=== PATIENT | female | born 1955 | race Caucasian/White ===

== ENCOUNTER → 2019-09-13 09:57 | Outpatient (CLI) | payer OTHER, SELFPAY ==
--- NOTE | ~2019-09-13 | MM_ITS ---
EXAMINATION: MM screening [facility] BI w ray HISTORY: Screening mammogram TECHNIQUE: Craniocaudal and mediolateral oblique 3-D tomosynthesis images were obtained and synthetic 2-D images were generated. CAD analysis was submitted and interpreted. COMPARISON: 04/06/2018, 09/14/2017, 09/03/1917, 05/21/2016 BREAST PARENCHYMAL COMPOSITION: There are scattered areas of fibroglandular density. FINDINGS: Scattered benign-appearing calcifications are present. There is no evidence of suspicious m ass, calcification, or architectural distortion to suggest malignancy in either breast. There has bee n no suspicious interval change. IMPRESSION: 1. No mammographic evidence of malignancy. 2. Recommend routine screening mammography in one year. BI-RADS Category 2: Benign finding(s). Reviewed, dictated and finalized at location A. K LEASING MANAGER
--- NOTE | ~2019-09-13 | DEXA_ITS ---
Bone Density Report Name: Sahara Goldstein Age: 63 Sex: Female Ethnicity: White Date of : 1955 Indication: postmenopausal; screening for osteoporosis; height loss; Referring Provider: Mercy Wright Study: Bone densitometry was performed. Exam Date: September 13, 2019 Accession number: [id number] Bone Density: Region BMD T-score Z-score Classification AP Spine (L1, L2, L4) 1.114 0.7 2.5 Normal Femoral Neck (Left) 0.831 -0.2 1.3 Normal Total Hip (Left) 1.109 1.4 2.6 Normal Femoral Neck (Right) 0.763 -0.8 0.7 Normal Total Hip (Right) 0.969 0.2 1.4 Normal Total Hip Mean 1.039 0.8 2.0 Normal World Health Organization criteria for BMD impression classify patients as: Normal (T-score at or above -1.0), Osteopenia (T-score between -1.0 and -2.5), or Osteoporosis (T-score at or below -2.5). 10-year Fracture Risk: FRAX not reported because: All T-scores for Spine Total, Hip Total, Femoral Neck at or above -1.0 Previous Exams: Region Exam Age BMD T-score BMD Change BMD Change Date g/cm2 vs Baseline vs Previous AP Spine(L1, L2, L4) 09/13/2019 63 1.114 0.7 0.073* 0.071* 09/12/2017 61 1.043 0.1 0.002 0.080* 03/03/2015 59 0.962 -0.7 -0.078* -0.051* 12/29/2012 57 1.013 -0.2 -0.028* -0.028* 10/09/2010 55 1.041 0.1 Total Hip(Left) 09/13/2019 63 1.109 1.4 0.063* 0.081* 09/12/2017 61 1.028 0.7 -0.018 0.011 03/03/2015 59 1.017 0.6 -0.029* -0.061* 12/29/2012 57 1.078 1.1 0.032* 0.032* 10/09/2010 55 1.046 0.9 Total Hip(Right) 09/13/2019 63 0.969 0.2 -0.028* 0.047* 09/12/2017 61 0.921 -0.2 -0.076* -0.028* 03/03/2015 59 0.949 0.1 -0.048* -0.026 12/29/2012 57 0.975 0.3 -0.022 -0.022 10/09/2010 55 0.997 0.4 *Denotes significance at 95% confidence level, LSC for AP Spine = 0.022 g/cm2, LSC for Total Hip = 0.027 g/cm2 Clinical Information Provided by Patient: Patient maximum height was 66.0 Menopause Age: 45 No regular weight bearing exercise Drinks caffeinated beverages Onset of menses at age 12 Number of children 2 Impression: The patient has normal bone mass. No significant bone loss was observed. Discussion: BONE DENSITY IS ABOVE THE MINIMUM DESIRABLE LEVEL
== END ==
PROVIDERS: PCP Family Medicine; Visit Provider Student in an Organized Health Care Education/Training Program
DX: Z12.31 Encounter for screening mammogram for malignant neoplasm of breast (principal); Z78.0 Asymptomatic menopausal state
CPT/HCPCS: 77063; 77067; 77080

== ENCOUNTER → 2020-08-19 08:42 | Outpatient (CLI) | payer MEDICARE, OTHER, SELFPAY ==
--- NOTE | ~2020-08-19 | MMUS_ITS ---
EXAMINATION: MM diagnostic dannie LT w ray, US breast LT limited HISTORY: Palpable lump of the lower-outer breast TECHNIQUE: Craniocaudal, mediolateral, and mediolateral oblique 3-D tomosynthesis images of the left breast were performed and synthetic 2-D images were generated. CAD analysis was submitted and interpr eted. High resolution limited left breast ultrasound was performed. COMPARISON: 09/13/2019, 09/03/1917, 05/21/2016 BREAST PARENCHYMAL COMPOSITION: There are scattered areas of fibroglandular density. FINDINGS: MAMMOGRAPHIC FINDINGS: There is no evidence of suspicious mass, calcification, or architectural distortion to suggest malig alondra. There has been no suspicious interval change. No mammographic correlate is identified for the reported palpable abnormality of concern. ULTRASOUND: There is no evidence of focal abnormal solid or cystic lesion in the vicinity of the reported palpabl e abnormality of the left breast. IMPRESSION: 1. No specific mammographic or sonographic correlate is identified for the reported palpable abnormal ity of concern in the left breast. Further evaluation at this time should be based on clinical assess ment. Continued follow-up physical examination is recommended. 2. Recommend routine screening mammography in one year for the left breast. Of note, patient is due f or right breast screening at the end of this month. BI-RADS Category 1: Negative Reviewed, dictated and finalized at location A. GER HAIR IMPRESSION: 1. No specific mammographic or sonographic correlate is identified for the repo rted palpable abnormality of concern in the left breast. Further evaluation at this time should be based on clinical assessment. Continued follow-up physical examination is recommended. 2. Recommend routine screening mammography in one year for the left breast. Of note, patient is due for right breast screening at the end of this month. BI-RADS Category 1: Negative
== END ==
PROVIDERS: PCP Physician Assistant; Visit Provider Student in an Organized Health Care Education/Training Program
DX: N63.25 Unspecified lump in the left breast, overlapping quadrants (principal); R92.8 Other abnormal and inconclusive findings on diagnostic imaging of breast
CPT/HCPCS: 76642; 77061; 77065; G0279

== ENCOUNTER → 2020-10-21 06:58 | Outpatient (CLI) | payer MEDICARE, OTHER, SELFPAY ==
[2020-10-21 22:47] LABS: SARS-CoV-2 RNA PCR Negative
== END ==
PROVIDERS: PCP Physician Assistant; Visit Provider Physician Assistant
DX: R68.89 Other general symptoms and signs (principal); Z20.822 Contact with and (suspected) exposure to COVID-19
CPT/HCPCS: C9803; U0003; U0005

== ENCOUNTER 2021-03-27 10:44 | Outpatient (CLI) | payer MEDICARE, OTHER, SELFPAY | END 2021-03-27 10:45 | disposition home or self-care (01) | LOC: ANHBWCAUD 10:45 | PROVIDERS: PCP Family Medicine; Visit Provider Otolaryngology | DX: H93.8X2 Other specified disorders of left ear (principal); H93.A2 Pulsatile tinnitus, left ear; H93.239 Hyperacusis, unspecified ear | CPT/HCPCS: 92557; 92567 ==

== ENCOUNTER 2021-04-13 07:26 | Outpatient (CLI) | payer MEDICARE, OTHER, SELFPAY ==
--- NOTE | ~2021-04-13 | MR_ITS ---
EXAMINATION: MR brain/brain stem wo/w con DATE: 04/13/2021 08:58 INDICATION: Pulsatile tinnitus, left ear. TECHNIQUE: Magnetic resonance imaging (MRI) of the brain and brainstem was performed without and with 15 mL MultiHance intravenous contrast. Sequences included sagittal and axial T1-weighted FSE, axial diffusion-weighted FS EPI, axial T2*-weighted GRE, axial T2-weighted FLAIR Propeller, axial T2-weight ed Propeller, small btfvt-si-mrdw coronal FIESTA, small eywjl-tq-zkgv coronal T1-weighted FSE, and sm all qpfla-xx-drdd axial T1-weighted SPGR. Postcontrast sequences included axial T1-weighted FSE, smal l avgep-td-dlxs coronal T1-weighted FSE, and small ywdaa-ta-ruzs axial T1-weighted SPGR. Apparent dif fusion coefficient (ADC) maps were created. COMPARISON: None. FINDINGS: There are scattered areas of nonspecific increased T2-weighted signal intensity in the cere bral white matter, which is within normal limits for the patient's age. There is no intracranial hemo rrhage, acute infarction, or abnormal intracranial mass lesion. The ventricles are normal in size. Th e orbits are normal. The paranasal sinuses are clear. The internal auditory canals and inner and midd le ears are normal. The mastoid air cells are normal. IMPRESSION: 1. Normal aging brain. Reviewed, dictated and finalized at location A. IMPRESSION: 1. Normal aging brain.
[2021-04-13 08:20] LABS: Estimated Glomerular Filt Rate 50
== END 2021-04-13 07:27 | disposition home or self-care (01) ==
PROVIDERS: PCP Family Medicine; Visit Provider Otolaryngology
DX: H93.A2 Pulsatile tinnitus, left ear (principal); K14.8 Other diseases of tongue; Q38.3 Other congenital malformations of tongue
CPT/HCPCS: 70553; A9577

== ENCOUNTER → 2021-10-28 10:15 | Outpatient (CLI) | payer MEDICARE, OTHER, SELFPAY ==
--- NOTE | ~2021-10-28 | DEXA_ITS ---
Bone Density Report Name: HALEY SHEPPARD Age: 66 Sex: Female Ethnicity: White Date of : 1955 Indication: postmenopausal; screening for osteoporosis; height loss; Referring Provider: Mercy Wright Study: Bone densitometry was performed. Exam Date: October 28, 2021 Accession number: [id number] Bone Density: Region BMD T-score Z-score Classification AP Spine (L1, L2, L4) 1.122 0.8 2.7 Normal Femoral Neck (Left) 0.809 -0.4 1.3 Normal Total Hip (Left) 1.099 1.3 2.6 Normal Femoral Neck (Right) 0.758 -0.8 0.8 Normal Total Hip (Right) 0.926 -0.1 1.2 Normal Total Hip Mean 1.013 0.6 1.9 Normal World Health Organization criteria for BMD impression classify patients as: Normal (T-score at or above -1.0), Osteopenia (T-score between -1.0 and -2.5), or Osteoporosis (T-score at or below -2.5). 10-year Fracture Risk: FRAX not reported because: All T-scores for Spine Total, Hip Total, Femoral Neck at or above -1.0 Previous Exams: Region Exam Age BMD T-score BMD Change BMD Change Date g/cm2 vs Baseline vs Previous AP Spine(L1, L2, L4) 10/28/2021 66 1.122 0.8 0.082* 0.008 09/13/2019 63 1.114 0.7 0.073* 0.071* 09/12/2017 61 1.043 0.1 0.002 0.080* 03/03/2015 59 0.962 -0.7 -0.078* -0.051* 12/29/2012 57 1.013 -0.2 -0.028* -0.028* 10/09/2010 55 1.041 0.1 Total Hip(Left) 10/28/2021 66 1.099 1.3 0.053* -0.010 09/13/2019 63 1.109 1.4 0.063* 0.081* 09/12/2017 61 1.028 0.7 -0.018 0.011 03/03/2015 59 1.017 0.6 -0.029* -0.061* 12/29/2012 57 1.078 1.1 0.032* 0.032* 10/09/2010 55 1.046 0.9 Total Hip(Right) 10/28/2021 66 0.926 -0.1 -0.071* -0.043* 09/13/2019 63 0.969 0.2 -0.028* 0.047* 09/12/2017 61 0.921 -0.2 -0.076* -0.028* 03/03/2015 59 0.949 0.1 -0.048* -0.026 12/29/2012 57 0.975 0.3 -0.022 -0.022 10/09/2010 55 0.997 0.4 *Denotes significance at 95% confidence level, LSC for AP Spine = 0.022 g/cm2, LSC for Total Hip = 0.027 g/cm2 Clinical Information Provided by Patient: Patient maximum height was 66.0 Menopause Age: 45 No regular weight bearing exercise Drinks caffeinated beverages Onset of menses at age 12 Number of children 2
--- NOTE | ~2021-10-28 | MM_ITS ---
EXAMINATION: MM screening [facility] BI w ray HISTORY: Screening mammogram TECHNIQUE: Craniocaudal and mediolateral oblique 3-D tomosynthesis images were obtained and synthetic 2-D images were generated. CAD analysis was submitted and interpreted. COMPARISON: 08/19/2020, 09/13/2019, 09/14/2017, 09/12/2017 BREAST PARENCHYMAL COMPOSITION: There are scattered areas of fibroglandular density. FINDINGS: There is no suspicious mass, calcification, or architectural distortion to suggest malignan cy in either breast. There has been no suspicious interval change. IMPRESSION: 1. No mammographic evidence of malignancy. 2. Recommend routine screening mammography in one year. BI-RADS Category 1: Negative Reviewed, dictated and finalized at location A.
== END ==
PROVIDERS: PCP Family Medicine; Visit Provider Student in an Organized Health Care Education/Training Program
DX: Z12.31 Encounter for screening mammogram for malignant neoplasm of breast (principal); Z78.0 Asymptomatic menopausal state
CPT/HCPCS: 77063; 77067; 77080

== ENCOUNTER 2023-10-04 07:53 | Emergency (ER) | payer MEDICARE, OTHER, SELFPAY ==
[2023-10-04] VITALS (32 sets, daily range): BP systolic 120–143; BP diastolic 51–73; PULSE 68–77; RESP 16–24; TEMP 36.8; O2SAT 89–97
--- NOTE | ~2023-10-04 | CT_ITS ---
EXAMINATION: CT abdomen pelvis w con INDICATION: Right lower quadrant pain TECHNIQUE: Computed tomographic images of the abdomen and pelvis were obtained after the administrati on of 100 cc of Omnipaque 350 intravenous contrast. The dose-length product (DLP) was 496.98 mGy-cm. Automated exposure control and iterative reconstruction technique were employed. COMPARISON: 05/04/2005 FINDINGS: Minimal dependent atelectasis is present in the lung bases. The heart size is normal. Cysts of the liver measure up to 1.8 cm in the right hepatic lobe. The spleen, pancreas, and adrenal gland s are normal. There are stones in the gallbladder. There is mild wall thickening of the gallbladder. The mildly dilated common bile duct measures up to 8 mm. There are questionable stones in the distal common bile duct. The kidneys are unremarkable. No pathologically enlarged abdominal or pelvic lymph nodes are identified. Subtle inflammatory change in the standard hepatic flexure of the colon likely relates to gallbladder disease. Colonic diverticulosis is present without evidence of diverticulitis. There is severe lumbar spondylosis. IMPRESSION: 1. Cholelithiasis with findings consistent with acute cholecystitis. Also mild biliary dilatation wit h possible choledocholithiasis. GI evaluation and surgical evaluation are recommended. Reviewed, dictated and finalized at location L. OF MAINTENANCE IMPRESSION: 1. Cholelithiasis with findings consistent with acute cholecystitis. Also mild biliary dilatation with possible choledocholithiasis. GI evaluation and surgica l evaluation are recommended.
--- NOTE | 2023-10-04 08:05 | ECG_ITS ---
Measurements Intervals [place] Rate: 72 P: 41 DC: 165 QRS: -3 QRSD: 101 T: 32 QT: 420 QTc: 460 Interpretive Statements SINUS RHYTHM NO PREVIOUS ECG AVAILABLE FOR COMPARISON Electronically Signed On 10-04-2023 15:16:23 REMEDIATION PROJECT ENGINEER by Paxton Breen M.D.
--- NOTE | 2023-10-04 08:06 | ED.GENADULT ---
HPI - General Adult General Chief complaint: Abdominal Pain Stated complaint: R abdominal pain/nausea Time Seen by Provider: 10/04/23 07:55 History of Present Illness HPI narrative: Sahara is a 68F with a PMH of HTN, HLD, and anxiety that presented to the ED with abdominal pain. It started a few days ago. It was LUQ and moved to the RUQ and there was some chest burning and nausea but no vomiting. She has not had a BM for 3 days but she struggles with constipation. No diarrhea or fevers. No chest pain or dyspnea. This morning the pain moved to the RUQ. Related Data Home Medications Medication Instructions Recorded Confirmed diphenhydramine HCl 25 mg capsule 25 mg PO Q6H PRN Allergy Symptoms 07/24/19 10/04/23 (Benadryl) multivitamin with minerals 1 tablet PO DAILY 06/08/21 10/04/23 (Hair,Skin and Nails tablet) Allergies Allergy/AdvReac Type Severity Reaction Status Date / Time chocolate flavor Allergy Unknown Nausea Verified 10/04/23 08:08 cocoa Allergy Unknown Nausea Verified 10/04/23 08:08 Sulfa (Sulfonamide AdvReac Intermediate Nausea and Verified 10/04/23 08:08 Antibiotics) stomach issues Review of Systems Review of Systems: All systems reviewed & are unremarkable except as noted in HPI and below PMFSH Past Medical History Medical History Anxiety BMI 28.0-28.9,adult H/O vaginal delivery x2 1979, 1976 HTN (hypertension) Insomnia Pneumonia Prediabetes Restless legs Surgical History Surgical History History of eye surgery Family History Family History Mother Hypertension Cerebrovascular accident, Onset Age: 79 Father Patient's father is , Onset Age: 64 Acute myocardial infarction Social History Social History Smoking status: Never smoker Second hand tobacco smoke exposure: No Alcohol intake: never Substance use: never Substance use type: does not use Lack of Transportation: No Lack of Food: Never True Current Housing: I Have Housing Concerned About Future Housing: No Difficulty Paying Gas/Electric Bills: No Difficulty Paying for Meds: No Currently Unemployed: No Education: High School Diploma/GED Difficulty w/ Childcare or Family Care: No Living arrangements: with family Occupation/Education: retired Gender identity (if verbalized by the patient): Female Sexual Orientation (if Verbalized by the Patient): Straight or Heterosexual Spiritual care concerns: Yes (Zoroastrian) Agree to blood products: Yes Exam Const: General: cooperative, healthy appearing, comfortable, no acute distress, well developed, alert, awake and Physically active Orientation/consciousness: oriented to person, oriented to place and oriented to time HENMT: Head: normal to inspection, normocephalic and atraumatic Ears: hearing grossly normal bilaterally and external ears normal Face/Nose/Sinus: Normal external nose present Eyes: General: appearance normal, both eyes and all related structures Periorbital: periorbital findings normal Sclera: sclerae normal Pupils: Equal, round and reactive pupils present Neck: Neck: normal visual inspection Chest: Chest palpation & inspection: normal inspection of the chest Resp: Effort & Inspection: normal respiratory effort, able to speak in complete sentences and no respiratory distress Auscultation: clear to auscultation bilaterally Cardio: Jugular venous distension: no JVD Rate: regular rate Rhythm: regular rhythm GI: Inspection: normal to inspection GI Palp: Yes Soft to palpation Auscultation: Hypoactive bowel sounds present Other: TTP in the epigastric and RUQ region. No guarding or rebound tenderness. negative obturator sign. Skin: General skin e
[2023-10-04 08:19] LABS: Basophils Absolute Auto 0.04 K/mm3 (0.00-0.10); Basophils Percent Auto 0.3 % (0.0-1.0); Eosinophils Absolute Auto 0.01 K/mm3 (0.02-0.50); Eosinophils Percent Auto 0.1 % (1.0-6.0); Hematocrit 39.6 % (35.0-42.0); Hemoglobin 13.1 g/dL (11.7-13.8); Immature Granulocyte Absolute 0.04 K/mm3 (0.00-0.00); Immature Granulocyte Percent A 0.3 % (0.0-0.0); Lymphocytes Absolute Auto 0.68 K/mm3 (1.10-4.50); Lymphocytes Percent Auto 4.7 % (18.0-42.0); Mean Corpuscular HGB Conc 33.1 g/dL (32.0-36.0); Mean Corpuscular Hemoglobin 29.6 pg (27.0-31.0); Mean Corpuscular Volume 89.4 fL (78.0-102.0); Mean Platelet Volume 11.7 fl (9.2-11.8); Monocytes Absolute Auto 0.53 K/mm3 (0.10-0.90); Monocytes Percent Auto 3.7 % (2.0-11.0); Neutrophils Absolute Auto 13.1 K/mm3 (1.7-7.2); Neutrophils Percent Auto 90.9 % (50.0-70.0); Platelet Count Result 280 K/mm3 (150-420); Red Blood Count 4.43 M/mm3 (4.20-5.40); Red Cell Distribution Width 12.9 % (11.6-14.4); White Blood Count 14.4 K/mm3 (4.8-10.8)
[2023-10-04 08:31] LABS: Prothrombin Time 10.9 Seconds (9.50-12.10)
[2023-10-04] MEDS: MORPHINE SULFATE (*CRX) 4 MG/ML INJ IV PUSH (08:33)
[2023-10-04 08:34] LABS: Alanine Aminotransferase 33 U/L (14-59); Albumin Level 3.8 g/dL (3.4-5.0); Alkaline Phosphatase 45 U/L (46-116); Anion Gap 11 mmol/L (8-16); Aspartate Amino Transferase 24 U/L (15-37); Bilirubin,Total 0.4 mg/dL (0.00-1.00); Blood Urea Nitrogen 18 mg/dL (7-18); CRP 2.8 mg/dL (0.0-0.9); Calcium 9.3 mg/dL (8.5-10.1); Carbon Dioxide 27 mmol/L (21-32); Chloride 102 mmol/L (98-108); Estimated Glomerular Filt Rate 59; Glucose 164 mg/dL (70-99); Lipase 21 U/L (16-77); Osmolality Calculated 295 mOsm/kg (285-295); Potassium 4.2 mmol/L (3.5-5.1); Sodium 140 mmol/L (136-145); Total Protein 7.6 g/dL (6.4-8.2)
[2023-10-04] MEDS: ONDANSETRON INJ 4 MG/2 ML VIAL IV PUSH (08:38)
[2023-10-04 08:39] LABS: Troponin I 5.5 ng/L (0.00-60.4)
[2023-10-04 08:41] LABS: Lactic Acid Reflex 1.5 mmol/L (0.4-2.0)
[2023-10-04 08:58] LABS: Appearance Urine Clear (Clear); Bilirubin Urine 1+ (Negative); Blood Urine Negative (Negative); Glucose Urine UA Negative (Negative); Ketones Urine Negative (Negative); Leukocyte Esterase Ur Negative LEU/UL (Negative); Nitrate Urine Negative (Negative); Protein Urine 2+ (Negative); Specific Grav Ur 1.015 (1.010-1.020)
[2023-10-04 09:04] LABS: Add Urine Microscopic? YES; Color Urine Dark Yellow (Yellow); RBC Urine None seen /hpf (0-2); Squamous Epithelial Cell Urine Few /hpf (Few); WBC Urine None seen /hpf (0-3)
[2023-10-04 09:05] LABS: Bacteria Urine Trace /hpf
--- NOTE | 2023-10-04 09:13 | PC.NURSE ---
PT HAS RETURNED FROM CT, AT BEDSIDE. PT IS AWAITING CT RESULTS AT THIS TIME. PT IS RESTING ON STRETCHER. WILL CONTINUE TO MONITOR.
--- NOTE | 2023-10-04 09:21 | PC.NURSE ---
PT REPORTS NO PAIN IMPROVEMENT, REMAINS NAUSEATED. ERP IS NOTIFIED.
[2023-10-04] MEDS: diphenhydrAMINE HCl INJ 50 MG/ML VIAL 25 MG IV PUSH (09:36)
[2023-10-04] MEDS: HYDROmorphone HCL INJ (*CRX) 2 MG/ML VIAL 0.5 MG IV PUSH (09:37)
[2023-10-04] MEDS: ERTAPENEM 1 GM/NS 50 ML 1 GM/50 ML BAG IVPB (10:05)
--- NOTE | 2023-10-04 10:09 | PC.NURSE ---
PT IS RESTING ON STRETCHER IN EXAM ROOM WITH AT BEDSIDE. PT IS AWARE OF PLAN OF CARE, REPORTS PAIN HAS IMPROVED, DOES REMAIN. PT DENIES ANY NEEDS OR COMPLAINTS AT THIS TIME. WILL CONTINUE TO MONITOR. PT IS AWAITING RETURN CALL FROM DR DENIS AT THIS TIME.
--- NOTE | 2023-10-04 12:27 | PC.NURSE ---
PT HAS BEEN ASSIGNED ROOM 331-2 AT [facility]. TO AWAIT RETURN CALL FROM RN TO OBTAIN REPORT. STAFF WAS UNAWARE OF ADMISSION.
== END 2023-10-04 13:17 | disposition short-term general hospital (02) ==
PROVIDERS: Emergency Provider Family Medicine; PCP Family Medicine
DX: K80.10 Calculus of gallbladder with chronic cholecystitis without obstruction (principal); I10 Essential (primary) hypertension; E78.5 Hyperlipidemia, unspecified
CPT/HCPCS: 36415; 74177; 80053; 81001; 83605; 83690; 84484; 85025; 85610; 86140; 93005; 96365; 96375; 99285; J1170; J1200; J1335; J2270; J2405; Q9967

== ENCOUNTER 2023-10-04 14:21 | Observation (INO) | payer MEDICARE, OTHER, SELFPAY ==
--- NOTE | ~2023-10-04 | MR_ITS ---
EXAMINATION: MR MRCP wo/w con/w 3D wo ind DATE: 10/05/2023 10:41 INDICATION: Abdominal pain, cholelithiasis, cholecystitis, and possible choledocholithiasis TECHNIQUE: Magnetic resonance imaging (MRI) of the abdomen was performed without and with intravenous contrast. Sequences included coronal T2-weighted SS-FSE ARC, coronal T2-weighted FS SS-FSE, coronal T2-weighted 2D FS FIESTA, Water:Coronal LAVA-Flex, sagittal T2-weighted SS-FSE ARC, axial SSFSE ARC, axial 3D DualEcho, axial DWI B=600, axial T1-weighted LAVA, FAT:Coronal LAVA-Flex, and coronal in and opposed phase LAVA-Flex. Thick-slab T2-weighted FRFSE-XL images were obtained for magnetic resonance cholangiopancreatography (MRCP). Maximum intensity projection 3-D reconstructions of the volumetric data were created by the technologist. Postcontrast sequences included a time course of axial T1-weig hted LAVA, FAT:Coronal LAVA-Flex, coronal in and opposed phase LAVA-Flex, and Water:Coronal LAVA-Flex . COMPARISON: CT, 10/04/2023 CONTRAST: Multihance, 13 cc FINDINGS: ABDOMEN MRI: Cysts of the liver measure up to 2.3 cm in the right hepatic lobe. The spleen, pancreas, and adrenal glands are normal. There are multiple stones in the gallbladder. There is wall thickenin g of the gallbladder. There is a small amount of pericholecystic fluid. The kidneys are unremarkable. There are no pathologically enlarged abdominal lymph nodes. There are no dilated loops of bowel. A s mall right pleural effusion is noted. No abnormal enhancement is present after contrast administratio n. There is severe lumbar spondylosis. ABDOMEN MRCP: Mildly dilated common bile duct measures up to 8 mm. No biliary stones or stricture are identified. The pancreatic duct is normal in course and caliber. IMPRESSION: 1. Acute cholecystitis. 2. Mild dilation of the common bile duct without biliary stones or stricture identified. Reviewed, dictated and finalized at location B. UNITY PHARMACIST IMPRESSION: 1. Acute cholecystitis. 2. Mild dilation of the common bile duct without biliary stones or stricture id entified.
--- NOTE | 2023-10-04 14:39 | PM.IMHP ---
H&P: HPI History of Present Illness Date/Time: 10/04/23 14:30 Chief Complaint: Cholecystitis. Narrative: This is a very pleasant 68-year-old female with hypertension, hyperlipidemia, prediabetes, and anxiety who is being directly admitted to the medical floor from the emergency department at [facility] with acute cholecystitis. The patient provides the following history. She gives a 3 day history of upper abdominal pain which has settled in the right upper quadrant. The pain seemed to start not long after eating fried fish for dinner. She describes a burning like discomfort associated with nausea but no vomiting. CMP and CBC done at the outside facility were pretty unremarkable with the only outliers being a WBC count of 14.4, CRP 2.8, glucose of 164. CT of the abdomen and pelvis showed cholelithiasis with acute cholecystitis and mild biliary dilatation with possible choledocholithiasis. She was given a dose of ertapenem and transfer was initiated for surgery consultation for definitive management. At the time my evaluation she is resting comfortably and reports that the morphine does help take the edge off though she continues to have pain, worse with movement, deep inspiration, and eating. She denies fever, chills, sweats, vomiting, chest pain, shortness of breath, melena, and hematochezia. Review of Systems Review of Systems: Systems were reviewed and are negative except for as per HPI. [facility] Past Medical History Medical History (Updated 10/04/23 @ 14:42 by Maribell Shankar PA-C) Anxiety BMI 28.0-28.9,adult Constipation Hypertension Insomnia Mixed hyperlipidemia Pneumonia Prediabetes Restless legs Surgical History Surgical History History of eye surgery Family History Family History Mother Hypertension Cerebrovascular accident, Onset Age: 79 Father Patient's father is , Onset Age: 64 Acute myocardial infarction Social History Social History (Updated 10/04/23 @ 14:38 by Maribell Shankar PA-C) Social History: Surrogate medical decision maker: Justin Goldstein, spouse. Code status: Full code. Smoking status: Never smoker Second hand tobacco smoke exposure: No Alcohol intake: never Substance use: never Substance use type: does not use Do You Feel Safe in your Home?: Yes Lack of Transportation: No Lack of Food: Never True Current Housing: I Have Housing Concerned About Future Housing: No Difficulty Paying Gas/Electric Bills: No Difficulty Paying for Meds: No Currently Unemployed: No Education: High School Diploma/GED Difficulty w/ Childcare or Family Care: No Living arrangements: with family Occupation/Education: retired Spiritual care concerns: Yes (Alex) Agree to blood products: Yes Meds Home Medications and Allergies Home Medications Medication Instructions Recorded Confirmed Type diphenhydramine HCl 25 mg capsule 25 mg PO Q6H PRN Allergy Symptoms 07/24/19 10/04/23 History (Benadryl) multivitamin with minerals 1 tablet PO DAILY 06/08/21 10/04/23 History (Hair,Skin and Nails tablet) lisinopril 20 mg tablet 20 mg PO DAILY #90 tabs 05/05/23 10/04/23 Rx venlafaxine 150 mg 150 mg PO QAM #90 caps 05/22/23 10/04/23 Rx capsule,extended release 24 hr diclofenac sodium 75 mg 75 mg PO BID #180 tabs 06/05/23 10/04/23 Rx tablet,delayed release fenofibrate micronized 134 mg 134 mg PO DAILY #90 caps 06/05/23 10/04/23 Rx capsule buspirone 15 mg tablet 15 mg PO BID 10/04/23 10/04/23 History Allergies Allergy/AdvReac Type Severity Reaction Status Date / Time chocolate flavor Allergy Unknown Nausea Verified 10/04/23 08:08 cocoa Allergy Unknown Nausea Verified 10/04/23 08:08 Sulfa (Sulfonamide AdvReac Intermediate Nausea and Verified 10/04/23 08:08 Antibiotics) stomach is
[2023-10-04 14:48] VITALS: BP 133/64; PULSE 78; RESP 18; TEMP 37; O2SAT 93
[2023-10-04 15:21] VITALS: BMI 26.6
--- NOTE | 2023-10-04 15:25 | ADMGEN ---
This patient, Sahara Goldstein, was admitted to [address] [place] [address] Room 331-02 at 1400. Patient/family oriented to hospital policies and general routines including ID bracelet, bed and alarms, visiting hours, pain management, procedures, bathroom and other care routines, personal items, smoking policy, room service/diet, and visiting hours. Information on how to activate the Rapid Response Team has been discussed. Patient/Family are encouraged to report perceived risks to care and to ask questions if they do not understand what they are told or what they should do.
[2023-10-04] MEDS: metroNIDAZOLE 500 MG/ISO 100ML 500 MG/100 ML BAG 100 MG IVPB ×2 (15:49→22:17)
[2023-10-04] MEDS: HYDROcodone/acetaminophen (*CRX) 5-325 MG TABLET 1 TAB PO ×2 (15:52→22:18)
[2023-10-04] MEDS: ONDANSETRON INJ 4 MG/2 ML VIAL IV PUSH (19:09)
[2023-10-04] MEDS: ACETAMINOPHEN 325 MG TABLET 650 MG PO (19:45)
[2023-10-04 20:15] VITALS: BP 114/62; PULSE 78; RESP 16; TEMP 37.2; O2SAT 92
[2023-10-05] VITALS (13 sets, daily range): BP systolic 131–167; BP diastolic 55–97; PULSE 68–76; RESP 14–18; TEMP 36.3–37.2; O2SAT 91–100
[2023-10-05] MEDS: ACETAMINOPHEN 325 MG TABLET 650 MG PO (04:57)
[2023-10-05] MEDS: metroNIDAZOLE 500 MG/ISO 100ML 500 MG/100 ML BAG 100 MG IVPB ×3 (06:01→21:17)
[2023-10-05 06:03] LABS: Hematocrit 39.8 % (37.0-47.0); Hemoglobin 12.6 g/dL (12.0-15.0); Mean Corpuscular HGB Conc 31.7 g/dl (32-36); Mean Corpuscular Hemoglobin 29.7 pg (26-34); Mean Corpuscular Volume 93.9 fl (80-100); Mean Platelet Volume 12.5 fl (7.4-10.4); Platelet Count Result 282 k/mm3 (150-375); Red Blood Count 4.24 M/mm3 (4.2-5.4); Red Cell Distribution Width 13.4 % (11.5-14.5); White Blood Count 12.7 K/mm3 (4.5-10.0)
[2023-10-05] MEDS: HYDROcodone/acetaminophen (*CRX) 5-325 MG TABLET 1 TAB PO ×3 (06:03→21:17)
[2023-10-05 06:34] LABS: Alanine Aminotransferase 43 U/L (6-35); Albumin Level 4.4 g/dL (3.5-5.1); Alkaline Phosphatase 52 U/L (38-126); Anion Gap 7 mmol/L (8-16); Aspartate Amino Transferase 44 U/L (14-36); Bilirubin,Total 0.5 mg/dL (0.2-1.3); Blood Urea Nitrogen 26 mg/dL (7-17); Calcium 9.8 mg/dL (8.4-10.2); Carbon Dioxide 27 mmol/L (22-30); Chloride 105 mmol/L (98-107); Estimated CRCL calculation 41 ml/min; Estimated Glomerular Filt Rate 55; Glucose 116 mg/dL (65-110); Magnesium 2.3 mg/dL (1.6-2.3); Sodium 139 mmol/L (137-145)
[2023-10-05 06:45] LABS: Potassium 3.6 mmol/L (3.4-5.0)
[2023-10-05] MEDS: busPIRone HCL 5 MG TABLET 15 MG PO ×2 (09:12→18:36)
[2023-10-05] MEDS: THERAPEUTIC MULTIVITAMINS/MINERALS TAB (*BKC) 1 TABLET PO (09:12)
[2023-10-05] MEDS: lisinopriL 20 MG TABLET PO (09:12)
[2023-10-05] MEDS: VENLAFAXINE HCL XR 75 MG CAP.ER.24H 150 MG PO (09:12)
[2023-10-05] MEDS: ONDANSETRON INJ 4 MG/2 ML VIAL IV PUSH (09:23)
--- NOTE | 2023-10-05 11:43 | PM.CNGS ---
Assessment and Plan Assessment and plan (1) Acute calculous cholecystitis: Code(s): K80.00 - Calculus of gallbladder with acute cholecystitis without obstruction Status: Acute Assessment and Plan: CT evidence of acute calculous cholecystitis, as well as common bile duct dilatation measuring 8 mm with possible choledocholithiasis. Her total bilirubin is normal. If there are small stones in the common bile duct, it doesn't appear that they are causing an obstruction. MRCP pending to further evaluate. Discussed both nonoperative and surgical treatment options for the acute cholecystitis. Discussed that she would be at risk for persistent pain and recurrent symptoms of acute cholecystitis with nonoperative management. Also discussed the option of a laparoscopic cholecystectomy, possible open, that would be performed by Dr. Harris. Description of the procedure, risks, benefits, expected outcomes, and expected recovery were discussed with the patient in detail. We discussed the risks of bile leak and bile duct injury, liver/bowel injury, bleeding, and infection. Also discussed the possibility of having to convert to an open procedure if necessary. The patient wishes to proceed with surgery.Will await MRCP results to rule out common bile duct stone. If this is negative, will proceed with surgery. If this shows choledocholithiasis, then we will need to consult GI and I will discuss with Dr. Harris regarding timing of surgery. Will also initiate continuous IV fluids. Continue IV antibiotics and analgesics. (2) Common bile duct dilatation: Code(s): K83.8 - Other specified diseases of biliary tract Status: Acute Assessment and Plan: Noted on CT. MRCP pending. (3) Hypertension: Code(s): I10 - Essential (primary) hypertension Status: Acute (4) Prediabetes: Code(s): R73.03 - Prediabetes Status: Acute Plan I have discussed the patient's case and plan of care with Dr. Harris. History of Present Illness Consult details Consult date: 10/05/23 Reason for consult: other (Acute cholecystitis) Requesting physician: Maribell Shankar PA-C Narrative: This is a 68-year-old woman with hypertension, hyperlipidemia, and prediabetes, who we have been asked to see in surgical consultation for acute cholecystitis. She was directly admitted yesterday afternoon from [facility]. The patient had an onset of burning upper abdominal pain radiating across her entire upper abdomen Tuesday afternoon. This was after eating fried fish and coleslaw for lunch. She reports associated nausea, but no vomiting. Her pain progressively worsened throughout the night. She was unable to sleep that entire night and by the next day had no relief in her pain. She decided to go to [facility] for evaluation. Labs showed a white blood cell count [id number]. LFTs normal. Lipase normal. CT scan of the abdomen and pelvis showed cholelithiasis with findings consistent with acute cholecystitis. Also noted was mild biliary dilatation with possible choledocholithiasis. Common bile duct measures up to 8 mm. After she was directly admitted to [facility], she had an MRCP that was ordered this morning. Radiology report pending. She is currently on IV ceftriaxone and metronidazole. She reports noticing dark urine this morning, but has not had anything to eat or drink since Tuesday. She denies dark colored urine prior to admission. She denies acholic stools or jaundice. The patient reports 1 episode of substernal chest pain and epigastric pain about a week ago that woke her in the night. Her pain resolved by the next morning, and she has not had any issues until Tuesday night. No previous abdominal surgeries. Her labs this morning showed her white blood cell count down to 12,700, total bilirubin normal, AST up slightly to 44, ALT up to 43, alk-phos normal. Review of Systems Review of Systems: All systems reviewed & are unremarkable except as
[2023-10-05] MEDS: LACTATED RINGERS 1,000 ML 125 ML IV CONT ×2 (11:47→18:38)
--- NOTE | 2023-10-05 13:18 | PM.IMPN ---
Progress Note: A&P Assessment and Plan (1) Acute cholecystitis: Code(s): K81.0 - Acute cholecystitis Status: Acute Assessment and Plan: As evidenced by Physical exam, CT from outside facility, MRCP performed here today and there is a noted new bump in the Transaminases. To OR this afternoon for expert surgical treatment. PRN pain meds and anti-emetics. NPO Monitor labs and VS. (2) Common bile duct dilatation: Code(s): K83.8 - Other specified diseases of biliary tract Status: Acute Assessment and Plan: As evidenced by CT scan and MRCP without any evidence of choledocholithiasis. (3) Hypertension: Code(s): I10 - Essential (primary) hypertension Status: Chronic Assessment and Plan: BP stable Continue home medications and continue to monitor. Time Spent With Patient Time with patient: 15 - 25 minutes Subjective Date/time seen: 10/05/23 0940 Interval history: This pt was examined at the bedside today in interval assessment. She is going for MRCP to evaluate for Choledocholithiasis and then she is scheduled for Cholecystectomy this afternoon. She has controlled pain, but endorses overall not feeling well. She has no CP, dyspnea, V/D or any other acute complaints at this time. Review of Systems Review of Systems: All systems reviewed & are unremarkable except as noted in HPI and below Exam Narrative: General: Well-developed, nontoxic-appearing female in bed in no acute distress. HEENT: PERRL, EOMI. Sclera anicteric. Dry oral mucosa with head that is atraumatic and normocephalic. Neck: Supple. FROM present. Respiratory: Lungs are clear to auscultation bilaterally. Cardiovascular: Regular rate and rhythm with S1-S2. No S3, S4, m,r,g,h Gastrointestinal: Abdomen is soft and nondistended with positive bowel sounds. She is tender to palpation the upper abdomen, more so in the right upper quadrant. No guarding or rebound tenderness. Skin: Warm and dry. No rash or lesions on limited exam. Extremities: No cyanosis, clubbing, or edema. Radial and pedal pulses intact. Neurological: Alert. Cranial nerves 2-12 are grossly intact. No gross focal deficits to casual conversation. Psychiatric: Pleasant and cooperative with normal mood and affect. Judgment and insight intact. Objective Data Vital Signs Vital Signs: Vital Signs - 24 hr 10/04/23 14:48 10/04/23 20:00 10/04/23 20:15 Temperature 98.6 F 98.9 F Pulse Rate 78 78 Respiratory Rate 18 16 Blood Pressure 133/64 114/62 Pulse Oximetry 93 92 Oxygen Delivery Room Air 10/05/23 05:20 10/05/23 08:00 Temperature 97.8 F Pulse Rate 76 Respiratory Rate 16 Blood Pressure 134/57 L Pulse Oximetry 92 Oxygen Delivery Room Air Intake/Output Intake/Output: Intake & Output 10/02/23 10/03/23 10/04/23 10/05/23 23:59 23:59 23:59 23:59 Intake Total 200 0 Balance 200 0 Meds/Results Medications: Active Medications Generic Name Dose Route Start Last Admin Trade Name Freq PRN Reason Stop Dose Admin Acetaminophen 650 mg 10/04/23 14:48 10/05/23 04:57 Acetaminophen 325 Mg Tablet PO 650 mg Q6H PRN Administration Mild Pain (1-3) or Fever Hydrocodone Bitart/Acetaminophen 1 tab 10/04/23 14:48 10/05/23 11:47 Hydrocodone/Acetaminophen (*Crx) 5-325 Mg Tablet PO 1 tab Q6H PRN Administration Pain Rated 4-6 Buspirone HCl 15 mg 10/05/23 09:00 10/05/23 09:12 Buspirone Hcl 5 Mg Tablet PO 15 mg BID ARUNA Administration Diphenhydramine HCl 25 mg 10/04/23 22:27 Diphenhydramine Hcl Cap 25 Mg Capsule PO Q6H PRN Allergy Symptoms Ceftriaxone Sodium 1 gm in 50 mls @ 100 mls/hr 10/04/23 15:00 10/04/23 15:49 Rocephin 1 Gm/Ns 50 Ml IVPB 100 mls/hr Q24H ARUNA Administration Metronidazole 500 mg in 100 mls @ 100 mls/hr 10/04/23 14:00 10/05/23 06:01 Flagyl 500 Mg/Iso Soln 100 Ml IVPB 100 mls/hr Q8H ARUNA Administration Lactated R
--- NOTE | 2023-10-05 14:19 | WPDANESEPPF ---
Anes - Initial Pre Proc Eval Procedure: Operation Date: 10/05/23 16:30 Proposed Procedures p Laparoscopic Cholecystectomy, Possible Open - Jarred Harris DO Date/Time: 10/05/23 14:19 Surgeon: DENNY Somers Pre Op Diagnosis: acute cholecystitis Patient Data Age: 68 Gender: F Height: 1.63 m Weight: 70.5 kg Last Vital Signs Temp 36.6 C 10/05/23 05:20 Pulse 76 10/05/23 05:20 Resp 16 10/05/23 05:20 BP 134/57 L 10/05/23 05:20 Pulse Ox 92 10/05/23 05:20 O2 Del Method Room Air 10/05/23 08:00 Allergies Allergy/AdvReac Type Severity Reaction Status Date / Time chocolate flavor Allergy Unknown Nausea Verified 10/04/23 08:08 cocoa Allergy Unknown Nausea Verified 10/04/23 08:08 Sulfa (Sulfonamide AdvReac Intermediate Nausea and Verified 10/04/23 08:08 Antibiotics) stomach issues Home Medications Medication Instructions Recorded Confirmed Type diphenhydramine HCl 25 mg capsule 25 mg PO Q6H PRN Allergy Symptoms 07/24/19 10/04/23 History (Benadryl) multivitamin with minerals 1 tablet PO DAILY 06/08/21 10/04/23 History (Hair,Skin and Nails tablet) lisinopril 20 mg tablet 20 mg PO DAILY #90 tabs 05/05/23 10/04/23 Rx venlafaxine 150 mg 150 mg PO QAM #90 caps 05/22/23 10/04/23 Rx capsule,extended release 24 hr diclofenac sodium 75 mg 75 mg PO BID #180 tabs 06/05/23 10/04/23 Rx tablet,delayed release fenofibrate micronized 134 mg 134 mg PO DAILY #90 caps 06/05/23 10/04/23 Rx capsule buspirone 15 mg tablet 15 mg PO BID 10/04/23 10/04/23 History Laboratory Tests 10/05/23 05:32 WBC 12.7 H K/mm3 (4.5-10.0) RBC 4.24 M/mm3 (4.2-5.4) Hgb 12.6 g/dL (12.0-15.0) Hct 39.8 % (37.0-47.0) MCV 93.9 fl (80-100) MCH 29.7 pg (26-34) MCHC 31.7 L g/dl (32-36) RDW 13.4 % (11.5-14.5) Plt Count 282 k/mm3 (150-375) MPV 12.5 H fl (7.4-10.4) Sodium 139 mmol/L (137-145) Potassium 3.6 mmol/L (3.4-5.0) Chloride 105 mmol/L (98-107) Carbon Dioxide 27 mmol/L (22-30) Anion Gap 7 L mmol/L (8-16) BUN 26 H mg/dL (7-17) Creatinine 1.00 mg/dL (0.7-1.0) Estim Creat Clear Calc 41 ml/min Estimated GFR 55 L (59 - ) Glucose 116 H mg/dL (65-110) Calcium 9.8 mg/dL (8.4-10.2) Magnesium 2.3 mg/dL (1.6-2.3) Total Bilirubin 0.5 mg/dL (0.2-1.3) AST 44 H U/L (14-36) ALT 43 H U/L (6-35) Alkaline Phosphatase 52 U/L (38-126) Total Protein 8.0 g/dL (6.3-8.2) Albumin 4.4 g/dL (3.5-5.1) Patient hx anesthesia problems: post op nausea/vomiting Family hx anesthesia problems: none Results Review: All pre-operative results and documents have been reviewed as part of the pre-operative evaluation. [facility] Past Medical History Medical History Anxiety BMI 28.0-28.9,adult Constipation Hypertension Insomnia Mixed hyperlipidemia Pneumonia Prediabetes Restless legs Surgical History Surgical History History of eye surgery Family History Family History Mother Hypertension Cerebrovascular accident, Onset Age: 79 Father Patient's father is , Onset Age: 64 Acute myocardial infarction Social History Social History Social History: Surrogate medical decision maker: Justin Ridens, spouse. Code status: Full code. Smoking status: Never smoker Second hand tobacco smoke exposure: No Alcohol intake: never Substance use: never Substance use type: does not use Do You Feel Safe in your Home?: Yes Lack of Transportation: No Lack of Food: Never True Current Housing: I Have Housing Concerned About Future Housing: No Difficulty Paying Gas/Electric Bills:
[2023-10-05] MEDS: LACTATED RINGERS 1,000 ML 30 ML IV CONT ×2 (14:28→16:13)
[2023-10-05] MEDS: SCOPOLAMINE 1 MG PATCH 1 PATCH TRANSDERM (14:29)
[2023-10-05] MEDS: fentaNYL CITRATE INJ (*CRX) 100 MCG/2 ML VIAL 25 MCG IV PUSH (14:30)
--- NOTE | 2023-10-05 14:30 | WPDHPUPDATE1 ---
History and Physical Update Update Date/Time: 10/05/23 14:30 History and Physical has been reviewed, including an updated exam of the patient. There are NO changes in the patient's condition. Risks, benefits, and alternatives have been discussed and questions answered. Patient agrees to proceed with procedure.
[2023-10-05] MEDS: BUPIVACAINE/EPINEPHRINE 0.5% 30 ML VIAL INFILTRATE (15:33)
--- NOTE | 2023-10-05 16:35 | W.PM.PROC2 ---
Procedure Note - Detailed Date of Procedure 10/05/23 Pre-op Diagnosis Acute calculous cholecystitis Post-op Diagnosis Same Procedure Performed Laparoscopic Cholecystectomy Surgeon Jarred Harris, DO Anesthesia General and Local (0.5% bupivacaine) Indications This is a 68-year-old woman who presented to [facility] with right upper quadrant pain. Her CT showed evidence of acute calculous cholecystitis and a dilated common bile duct. She also was noted to have an elevated white blood count and slightly elevated liver enzymes. She was transferred to [facility] for further treatment. An MRCP was obtained this morning which showed no evidence of choledocholithiasis. Discussions were made with the patient about treatment options and decision was made to proceed with laparoscopic cholecystectomy, possible open. Findings Laparoscopic cholecystectomy was performed. The patient had evidence of acute cholecystitis and there were also some phlegmonous changes around the gallbladder with possible findings of perforated cholecystitis. The gallbladder appeared tense and dilated and was difficult to grasp initially. A laparoscopic aspirating needle was used to aspirate about 30 cc of cloudy purulence bile. The gallbladder wall was thickened and there were multiple gallstones within the gallbladder. The cystic duct appeared normal in size. The gallbladder was removed and sent to the lab for pathology. There was some mild bleeding at the cystic artery stump which appeared to be controlled with the clip stevedoring supervisor but there was still some mild bleeding, therefore Surgiflo was sprayed over the area and this helped aid with hemostasis. Description of Procedure Procedure as well as risks, benefits, and alternatives were discussed with patient. Written consent was obtained and placed in chart prior to procedure. The patient was brought back to surgical suite. Patient was placed in supine position on operating table. Time-out was done to confirm patient and procedure. Patient was then intubated by the anesthesia department. Abdomen was prepped and draped in sterile fashion using chlorhexidine prep. 0.5% bupivacaine with epinephrine was infiltrated at each site of incision. A 5 millimeter incision was made near the umbilicus, and a 5 millimeter Optiview trocar was advanced through the abdominal layers under direct visualization. Once inside the abdominal cavity, carbon dioxide was insufflated to create a pneumoperitoneum. The camera was inserted and the abdomen was inspected. No immediate abnormalities were identified. The patient was placed in reverse Trendelenburg position and rotated slightly to the left. An 11 millimeter incision was made in the subxiphoid region, and an 11 millimeter trocar was inserted under direct visualization. Two 5 millimeter incisions were made in the right upper quadrant, and two 5 millimeter trocars were inserted under direct visualization. The gallbladder was identified and grasped at the fundus and retracted superiorly. It was then grasped at the infundibulum retracted laterally. Careful dissection around the neck of the gallbladder was performed using blunt dissection with a [place] grasper and hook electrocautery. The cystic duct was identified, and a window was created behind it. The cystic artery was also identified and a window was created behind it. The critical view of safety was identified, visualizing the cystic duct running directly into the neck of the gallbladder, and the cystic artery running directly into the wall of the gallbladder. A 5 millimeter clip stevedoring supervisor was then used to place 2 clips proximally and 1 clip distally on both the cystic duct and cystic artery. They were then both transected using endoscopic scissors. Once safely away from the toño hepatitis, the gallbladder was dissected free from the liver bed using hook electrocautery. Hemostasis was achieved along the way. The gallbladde
[2023-10-06] MEDS: LACTATED RINGERS 1,000 ML 125 ML IV CONT (02:22)
[2023-10-06] MEDS: HYDROcodone/acetaminophen (*CRX) 5-325 MG TABLET 1 TAB PO ×2 (02:22→08:32)
[2023-10-06 04:00] VITALS: BP 133/53; PULSE 73; RESP 14; TEMP 36.9; O2SAT 84
[2023-10-06] MEDS: metroNIDAZOLE 500 MG/ISO 100ML 500 MG/100 ML BAG 100 MG IVPB (05:14)
[2023-10-06] MEDS: MORPHINE SULFATE (*CRX) 2 MG/ML INJ IV PUSH (05:35)
[2023-10-06 06:05] LABS: Basophils Percent Auto 0.3 % (0.2-1.2); Hemoglobin 10.6 g/dL (12.0-15.0); Immature Granulocyte Absolute 0.05 K/mm3 (0.00-0.031); Immature Granulocyte Percent A 0.4 % (0-0.5); Lymphocytes Absolute Auto 0.91 K/mm3 (0.9-3.2); Lymphocytes Percent Auto 7.6 % (18.3-44.2); Mean Corpuscular HGB Conc 32.1 g/dl (32-36); Mean Corpuscular Hemoglobin 29.8 pg (26-34); Mean Corpuscular Volume 92.7 fl (80-100); Mean Platelet Volume 11.6 fl (7.4-10.4); Monocytes Absolute Auto 0.7 K/mm3 (0.1-0.6); Monocytes Percent Auto 5.6 % (2.6-8.5); Neutrophils Absolute Auto 10.3 K/mm3 (1.3-6.7); Neutrophils Percent Auto 86.1 % (45.5-73.1); Platelet Count Result 237 k/mm3 (150-375); Red Blood Count 3.56 M/mm3 (4.2-5.4); Red Cell Distribution Width 13.3 % (11.5-14.5); White Blood Count 11.9 K/mm3 (4.5-10.0)
[2023-10-06 06:20] LABS: Alanine Aminotransferase 39 U/L (6-35); Albumin Level 3.5 g/dL (3.5-5.1); Alkaline Phosphatase 51 U/L (38-126); Anion Gap 6 mmol/L (8-16); Aspartate Amino Transferase 42 U/L (14-36); Bilirubin,Total 0.3 mg/dL (0.2-1.3); Blood Urea Nitrogen 24 mg/dL (7-17); Carbon Dioxide 26 mmol/L (22-30); Chloride 105 mmol/L (98-107); Estimated CRCL calculation 45 ml/min; Estimated Glomerular Filt Rate > 60; Glucose 96 mg/dL (65-110); Sodium 137 mmol/L (137-145)
[2023-10-06 07:30] VITALS: BP 139/61; PULSE 77; RESP 20; TEMP 36.5; O2SAT 92
[2023-10-06 07:59] LABS: Glucose Point of Care 92 mg/dl (65-105)
[2023-10-06 08:00] VITALS: O2SAT 92
[2023-10-06] MEDS: ENOXAPARIN 40 MG/0.4 ML SYRINGE SUB-Q (08:30)
[2023-10-06] MEDS: VENLAFAXINE HCL XR 75 MG CAP.ER.24H 150 MG PO (08:30)
[2023-10-06] MEDS: busPIRone HCL 5 MG TABLET 15 MG PO (08:31)
[2023-10-06] MEDS: lisinopriL 20 MG TABLET PO (08:32)
[2023-10-06] MEDS: THERAPEUTIC MULTIVITAMINS/MINERALS TAB (*BKC) 1 TABLET PO (08:32)
--- NOTE | 2023-10-06 09:58 | PM.PNGS ---
Progress Note: A&P Assessment and Plan (1) Acute calculous cholecystitis: Code(s): K80.00 - Calculus of gallbladder with acute cholecystitis without obstruction Status: Acute Assessment and Plan: Doing well on POD#1. OK to discharge from surgical standpoint. Gallbladder appeared gangrenous/perforated so will cover with 1 week of antibiotics. F/u in office in 2 weeks. Subjective Subjective Date/Time Seen: 10/06/23 09:58 Interval history: Doing well on POD#1. Pain much improved. Tolerating diet. No fevers. Ambulating without difficulty. Exam GI: Inspection: non-distended and incision (intact with glue) GI Palp: Yes Soft to palpation, Yes Tenderness to palpation present (GI) (incisional) and No Guarding due to palpation present (GI) Objective Data Vital Signs Vital Signs: Vital Signs - 24 hr 10/05/23 14:54 10/05/23 14:00 10/05/23 16:13 Temperature 36.3 C L 36.6 C 36.4 C L Pulse Rate 76 75 70 Respiratory Rate 16 18 16 Blood Pressure 149/64 H 141/71 H 146/58 H Pulse Oximetry 93 94 100 Oxygen Delivery Room Air Simple Face Mask Oxygen Flow Rate 6 10/05/23 16:25 10/05/23 16:35 10/05/23 16:40 Temperature Pulse Rate 68 69 Respiratory Rate 16 18 Blood Pressure 146/64 H 158/62 H Pulse Oximetry 100 91 Oxygen Delivery Simple Face Mask Room Air Room Air Oxygen Flow Rate 6 10/05/23 16:55 10/05/23 17:08 10/05/23 17:09 Temperature 36.6 C Pulse Rate 68 68 68 Respiratory Rate 18 18 16 Blood Pressure 144/55 H 141/61 H 167/62 H Pulse Oximetry 91 91 92 Oxygen Delivery Room Air Room Air Oxygen Flow Rate 10/05/23 17:24 10/05/23 17:54 10/05/23 20:00 Temperature 36.7 C 36.7 C Pulse Rate 70 74 Respiratory Rate 16 16 Blood Pressure 131/97 H 152/67 H Pulse Oximetry 94 94 94 Oxygen Delivery Room Air Oxygen Flow Rate 10/05/23 20:00 10/05/23 12:00 10/06/23 04:00 Temperature 37.2 C 37.2 C 36.9 C Pulse Rate 76 73 73 Respiratory Rate 14 14 14 Blood Pressure 151/69 H 149/70 H 133/53 L Pulse Oximetry 92 91 84 L Oxygen Delivery Oxygen Flow Rate 10/06/23 08:00 Temperature Pulse Rate Respiratory Rate Blood Pressure Pulse Oximetry 92 Oxygen Delivery Nasal Cannula Oxygen Flow Rate 1 Intake/Output Intake/Output: Intake & Output 10/03/23 10/04/23 10/05/23 10/06/23 23:59 23:59 23:59 23:59 Intake Total 250 1590 1000 Output Total 800 1 Balance 250 790 999 Meds/Results Medications: Active Medications Generic Name Dose Route Start Last Admin Trade Name Freq PRN Reason Stop Dose Admin Acetaminophen 650 mg 10/04/23 14:48 10/05/23 04:57 Acetaminophen 325 Mg Tablet PO 650 mg Q6H PRN Administration Mild Pain (1-3) or Fever Hydrocodone Bitart/Acetaminophen 1 tab 10/05/23 17:09 10/06/23 08:32 Hydrocodone/Acetaminophen (*Crx) 5-325 Mg Tablet PO 1 tab Q4H PRN Administration Pain Rated 4-6 Hydrocodone Bitart/Acetaminophen 1 tab 10/05/23 17:09 Hydrocodone/Acetaminophen (*Crx) 7.5-325 Mg Tablet PO Q4H PRN Pain Rated 7-10 Buspirone HCl 15 mg 10/05/23 09:00 10/06/23 08:31 Buspirone Hcl 5 Mg Tablet PO 15 mg BID ARUNA Administration Diphenhydramine HCl 25 mg 10/04/23 22:27 Diphenhydramine Hcl Cap 25 Mg Capsule PO Q6H PRN Allergy Symptoms Enoxaparin Sodium 40 mg 10/06/23 09:00 10/06/23 08:30 Enoxaparin 40 Mg/0.4 Ml Syringe SUB-Q 40 mg DAILY ARUNA Administration Ceftriaxone Sodium 1 gm in 50 mls @ 100 mls/hr 10/04/23 15:00 10/05/23 16:13 Rocephin 1 Gm/Ns 50 Ml IVPB Infused Q24H ARUNA Infusion Metronidazole 500 mg in 100 mls @ 100 mls/hr 10/04/23 14:00 10/06/23 05:14 Flagyl 500 Mg/Iso Soln 100 Ml IVPB 100 mls/hr Q8H ARUNA Administration Lactated Ringer's 1,000 mls @ 125 mls/hr 10/05/23 11:45 10/06/23 02:22 Lr - Lactated Ringers Iv IV CONT 125 mls/hr .Q8H ARUNA Administration Lisinopril 20 mg 10/05/23 09:00 10/06/23 08:32 Lisinop
--- NOTE | 2023-10-06 11:33 | PM.DS ---
DS: Admitting Diagnosis Discharge Date 10/06/23 Admitting Diagnosis Acute Cholecystitis Dilation of Common Bile Duct DS: Discharge Diagnosis Discharge Diagnosis (1) Acute cholecystitis: Code(s): K81.0 - Acute cholecystitis Status: Acute Assessment and Plan: As evidenced by Physical exam, CT from outside facility, MRCP performed here today and there is a noted new bump in the Transaminases. To OR this afternoon for expert surgical treatment. PRN pain meds and anti-emetics. NPO Monitor labs and VS. 10/06: POD #1, pt with great improvement in pain, no post-operative nausea or vomiting. She has tolerated a regular diet and is stable for discharge per General surgery. Abx and pain meds ordered per surgery. (2) Common bile duct dilatation: Code(s): K83.8 - Other specified diseases of biliary tract Status: Acute Assessment and Plan: As evidenced by CT scan and MRCP without any evidence of choledocholithiasis. 10/06: No significance for discharge at this time. (3) Hypertension: Code(s): I10 - Essential (primary) hypertension Status: Chronic Assessment and Plan: BP stable Continue home medications and continue to monitor. 10/06: Stable at time of discharge. Continue home meds. Plan DS: Summary Hospital Course Reason for hospitalization: Acute Cholecystitis requiring surgical intervention Hospital Course: This very pleasant, 68 year old female pt with PMH of HTN, HLD, and anxiety was transferred to our facility from [place] for surgical workup and management of acute cholecystitis and evaluation of dilation of CBD. Her symptoms of abdominal pain had been present for three days prior to arrival, with unrelenting and worsening of pain as well as focal location of pain in the RUQ. Workup performed here with MRCP was negative for Choledocholithiasis, but CT scan from outside facility was highly suspicious for Acute cholecystitis. The surgical team here agreed and pt was taken to the OR last evening on 10/05/23, and had a Laparoscopic Cholecystectomy without complication, but it was noted that there was gangrene of the Gall bladder and some area concerning for perforation as well. Her post-operative course has been favorable with resolution of pain, no N/V and tolerable of po intake without difficulty. She has been cleared for discharge per General Surgery and there are no further concerns from Hospitalist service at this time. Pt's pain meds and abx are ordered per General Surgery. Status at Discharge Cognitive/behavioral status at discharge: At baseline Functional status at discharge: independent ambulation Overall status at discharge: patient is back to baseline Time Spent with Patient Time attestation: Total time spent providing and/or coordinating discharge services: Time spent: Greater than 30 minutes Specific discharge activities: Follow up, discharge medications Exam Narrative: General: Well-developed, nontoxic-appearing female in bed in no acute distress. HEENT: PERRL, EOMI. Sclera anicteric. Dry oral mucosa with head that is atraumatic and normocephalic. Neck: Supple. FROM present. Respiratory: Lungs are clear to auscultation bilaterally. Cardiovascular: Regular rate and rhythm with S1-S2. No S3, S4, m,r,g,h Gastrointestinal: Abdomen is soft and nondistended with positive bowel sounds. Minimal TTP in the RUQ, no s/s of infection around lap sites and no drainage. No guarding or rebound tenderness. Skin: Warm and dry. No rash or lesions on limited exam. Extremities: No cyanosis, clubbing, or edema. Radial and pedal pulses intact. Neurological: Alert. Cranial nerves 2-12 are grossly intact. No gross focal deficits to casual conversation. Psychiatric: Pleasant and cooperative with normal mood and affect. Judgment and insight intact. DS: Data Data Completed and Pending Completed studies during hospitalization: ITS Impressions [facility] 10/05/23 11:
--- NOTE | 2023-10-06 13:14 | PC.NURSE ---
Elle Roles discussed d/c with patient. iv out.
--- NOTE | 2023-10-06 14:04 | WPDANESPN ---
Anes - Prog Note Post-Op Date/Time: 10/06/23 14:04 Cardiovascular status: normal Respiratory status: normal Airway patency: baseline Mental status: baseline Post-Op hydration status: normal Vital Signs: Last Vital Signs Temp 97.7 F 10/06/23 07:30 Pulse 77 10/06/23 07:30 Resp 20 10/06/23 07:30 BP 139/61 10/06/23 07:30 Pulse Ox 92 10/06/23 08:00 O2 Del Method Nasal Cannula 10/06/23 08:00 O2 Flow Rate 1 10/06/23 08:00 Pain Score (VAS): 0/10 I/O: Intake & Output 10/05/23 10/06/23 10/06/23 23:59 07:59 15:59 Intake Total 1490 1000 360 Output Total 800 1 Balance 690 999 360 Laboratory Tests 10/06/23 05:55 10/06/23 05:55 10/06/23 10/06/23 05:55 07:55 WBC 11.9 H RBC 3.56 L Hgb 10.6 L Hct 33.0 L MCV 92.7 MCH 29.8 MCHC 32.1 RDW 13.3 Plt Count 237 MPV 11.6 H Immature Gran % (Auto) 0.4 Neut % (Auto) 86.1 H Lymph % (Auto) 7.6 L [place] % (Auto) 5.6 Eos % (Auto) 0.0 Baso % (Auto) 0.3 Lymph # (Auto) 0.91 [place] # (Auto) 0.7 H Eos # (Auto) 0.0 Baso # (Auto) 0.0 Abs Immat Gran (auto) 0.05 H Absolute Neuts (auto) 10.3 H Absolute Nucleated RBC 0.0 Nucleated RBC % 0.0 Sodium 137 Potassium 4.0 Chloride 105 Carbon Dioxide 26 Anion Gap 6 L BUN 24 H Creatinine 0.90 Estim Creat Clear Calc 45 Estimated GFR > 60 Glucose 96 POC Capillary Glucose 92 Calcium 9.0 Total Bilirubin 0.3 AST 42 H ALT 39 H Alkaline Phosphatase 51 Total Protein 6.0 L Albumin 3.5 Post-procedural complaints: none Patient Feedback: Patient satisfied with anesthetic care. Other Findings: Per nurse report
== END 2023-10-06 13:10 | disposition home or self-care (01) ==
PROVIDERS: Physician Assistant; Surgery; Admitting Provider Internal Medicine; PCP Family Medicine; Visit Provider Nurse Practitioner Adult Health
PROC: 0FT44ZZ Resection of Gallbladder, Percutaneous Endoscopic Approach (ICD-10-PCS; CPT 47562; principal; 2023-10-05 16:30)
DX: K80.00 Calculus of gallbladder with acute cholecystitis without obstruction (principal); K82.A2 Perforation of gallbladder in cholecystitis; K83.8 Other specified diseases of biliary tract; I10 Essential (primary) hypertension; E78.2 Mixed hyperlipidemia; R73.03 Prediabetes; F41.9 Anxiety disorder, unspecified; K59.00 Constipation, unspecified; Z82.49 Family history of ischemic heart disease and other diseases of the circulatory system; Z79.899 Other long term (current) drug therapy
CPT/HCPCS: 47562; 36415; 74183; 76376; 80053; 82948; 83735; 85025; 85027; 88304; A9270; A9577; G0378; J0696; J1100; J1596; J1650; J1836; J2250; J2270; J2405; J2704; J2710; J3010; J7030; J7120

== ENCOUNTER 2024-06-07 09:47 | Emergency (ER) | payer MEDICARE, OTHER, SELFPAY ==
--- NOTE | ~2024-06-07 | XR_ITS ---
EXAMINATION: XR lumbar spine 2-3V DATE: 06/07/2024 10:39 INDICATION: Low back pain radiating down the leg. TECHNIQUE: 3 views of lumbar spine were obtained. COMPARISON: CT abdomen and pelvis 10/04/2023 FINDINGS: There is 17 degrees levoscoliosis of lumbar spine. There is 3 mm retrolisthesis of L4 on L5 . Vertebral body heights are normal. There is severely decreased disc height from T12-L1 through L5-S 1. There is multilevel severe facet joint osteoarthritis.: Surgical clips in the right upper quadrant are likely from cholecystectomy. IMPRESSION: 1. Severe lumbar spondylosis. 2. Lumbar levoscoliosis. Reviewed, dictated and finalized at location A.
--- NOTE | ~2024-06-07 | XR_ITS ---
XR hip RT min 3V w AP pelvis Ordering provider: Jan Rivera MD History: . back pain with right shooting pain down leg . Comparison: None. FINDINGS: BONES: No acute fracture or dislocation. HIP JOINT SPACES: Normal. SACROILIAC JOINT SPACES/LUMBAR SPINE: The sacroiliac joint spaces are normal. Mild degenerative cook es of the visualized lower lumbar spine. PUBIC SYMPHYSIS: Normal. SOFT TISSUES: Normal. IMPRESSION: No acute osseous abnormality pelvis and right hip. Reviewed, dictated and finalized at location A.
[2024-06-07 09:53] VITALS: BP 172/72; PULSE 90; RESP 16; TEMP 36.4; O2SAT 98
--- NOTE | 2024-06-07 09:57 | ECG_ITS ---
Test Date: 2024-06-07 10:12:12 Measurements Intervals [place] Rate: 73 P: 57 KS: 154 QRS: 5 QRSD: 97 T: 64 QT: 366 QTc: 404 Interpretive Statements SINUS RHYTHM No previous ECG available for comparison Electronically Signed On 06-07-2024 15:23:40 CDT by Paxton Breen M.D.
[2024-06-07] MEDS: ACETAMINOPHEN 500 MG TABLET 1000 MG PO (10:05)
--- NOTE | 2024-06-07 11:23 | ED.LOWEXIN ---
HPI - Extremity Injury (Lower) General Chief Complaint: Extremity Injury, Lower Stated Complaint: right leg pain Time Seen by Provider: 06/07/24 09:50 Source: patient Mode of arrival: ambulatory Limitations: no limitations History of Present Illness HPI Narrative: this is a 68-year-old female that presents with some lower back and right hip pain with a shooting sensation to her upper right hip with no redness no swelling no warmth or tenderness to the right hip her leg no calf pain or tenderness no known injuries has good range of motion with no flank pain no lower back pain with palpation. No fever chills no shortness of breath. Onset (ago): day(s) Injury: Right: hip Severity: mild Related Data Allergies Allergy/AdvReac Type Severity Reaction Status Date / Time chocolate flavor Allergy Unknown Nausea Verified 06/07/24 09:49 cocoa Allergy Unknown Nausea Verified 06/07/24 09:49 Sulfa (Sulfonamide AdvReac Intermediate Nausea and Verified 06/07/24 09:49 Antibiotics) stomach issues Review of Systems Review of Systems: All systems reviewed & are unremarkable except as noted in HPI and below PMFSH Past Medical History Medical History Anxiety BMI 28.0-28.9,adult Chronic constipation Constipation Hypertension Hypokalemia Insomnia Mixed hyperlipidemia Pneumonia Prediabetes Restless legs Surgical History Surgical History History of eye surgery 10/05/2023 Family History Family History Mother Hypertension Cerebrovascular accident, Onset Age: 79 Father Patient's father is , Onset Age: 64 Acute myocardial infarction Social History Social History Social History: Surrogate medical decision maker: Justintyrese Goldstein, spouse. Code status: Full code. Smoking status: Never smoker Second hand tobacco smoke exposure: No Alcohol intake: never Substance use: never Substance use type: does not use Do You Feel Safe in your Home?: Yes Lack of Transportation: No Lack of Food: Never True Current Housing: I Have Housing Concerned About Future Housing: No Difficulty Paying Gas/Electric Bills: No Difficulty Paying for Meds: No Currently Unemployed: No Education: High School Diploma/GED Difficulty w/ Childcare or Family Care: No Living arrangements: with family Occupation/Education: retired Spiritual care concerns: Yes (Alex) Agree to blood products: Yes Exam Const: General: healthy appearing and no acute distress Nutritional Appearance: well nourished Orientation/consciousness: patient oriented x3 Limitations: no limitations Resp: Effort & Inspection: normal respiratory effort Auscultation: clear to auscultation bilaterally Cardio: Rate: regular rate Rhythm: regular rhythm GI: GI Palp: Yes Soft to palpation Auscultation: normal bowel sounds : General: Yes bladder normal to palpation Back/Spine/Pelvis: Back: no CVA tenderness Skin: General skin exam: normal color Rashes: no rashes Wounds: no wounds Extrem: General: normal to inspection and no pedal edema Course Course Emergency Course: Patient received a dose of Toradol which improved her pain level, x-rays performed of the lumbar spine and right hip were without any acute abnormalities lower back does show severe lumbar spondylosis /osteoarthritis. Vital Signs Vital signs: Vital Signs Temperature 36.4 C L 06/07/24 09:53 Pulse Rate 90 06/07/24 09:53 Respiratory Rate 16 06/07/24 09:53 Blood Pressure 172/72 H 06/07/24 09:53 Pulse Oximetry 98 06/07/24 09:53 Oxygen Delivery Room Air 06/07/24 09:53 Temperature 36.4 C L 06/07/24 09:53 Pulse Rate 90 06/07/24 09:53 Respiratory Rate 16 06/07/24 09:53 Blood Pressure 172/72 H
[2024-06-07 11:35] VITALS: BP 167/84; PULSE 70; RESP 14; TEMP 36.6; O2SAT 99
== END 2024-06-07 11:35 | disposition home or self-care (01) ==
PROVIDERS: Emergency Provider Emergency Medicine; PCP Family Medicine
DX: M47.816 Spondylosis without myelopathy or radiculopathy, lumbar region (principal); I10 Essential (primary) hypertension; E78.2 Mixed hyperlipidemia
CPT/HCPCS: 72100; 73502; 93005; 99284

== ENCOUNTER 2024-06-13 10:49 | Outpatient (RCR) | payer MEDICARE, OTHER, SELFPAY ==
--- NOTE | 2024-06-13 11:50 | PTOPEVAL1 ---
Assessment and note entered by Jan Manrique Evaluation Information Diagnosis spondylosis ICD-10 Condition Codes (PT) Pain in low back M54.50 Onset 06/07/24 Subjective Information Pt. reports she developed pain initially into the right thigh. She states that she underwent x-ray and revealed arthritis in the low back. She states that she has mild pain across the back. She states that pain will wake her at night. She states that she has improved since initial injury. She states that she is using occasional Tylenol for pain. She states that nothing particular will increase her pain. She states that her goal is to reduce her pain with activity. Reported Pain Level Pain Score 2: Self Report Assessment PT Clinical Summary Pt. is a 68 year old female who enters the clinic with a diagnosis of low back pain. She presents with impaired strength, impaired postural awareness, pain and impaired flexibility. Continued skilled PT is indicated in order to improve these areas to allow the pt. to be able to complete all IADL's with improved comfort and efficiency. Plan of Care Interventions Electrical Stimulation,Hot Pack/Cold Pack,Manual Therapy,Mechanical Traction,Neuro Re-education, Patient/Caregiver Educati,Therapeutic Activities, Therapeutic Exercise PT Services Indicated Yes Treatment Frequency and 2x/week x 8 visits Duration These treatments will address the objective and functional deficits as defined above. The patient will be advanced safely and appropriately in order for the patient to progress towards his/her prior level of function. Additional exercises will be introduced and as well as a comprehensive home exercise program upon discharge, if needed, ?to ensure carryover of functional gains achieved in the clinic. This treatment plan has been reviewed and agreement upon by the patient.
--- NOTE | 2024-06-13 11:51 | OPREHPOC ---
Outpatient Therapy Plan of Care This is a Multidisciplinary Plan of Care that may contain components documented by all disciplines (PT, OT, and ST.) PT Problem 1 PT Problem #1 Knowledge Deficit PT Goal 1 Goal / Goal Update Pt. will be independent with a HEP addressing trunk mobility and core strength Target Visit 2 PT Problem 2 PT Problem #2 Impaired Flexibility PT Goal 1 Goal / Goal Update Pt. will present at 10 degrees from full knee extension on the right with the 90/90 test Target Visit 4 PT Problem 3 PT Problem #3 Impaired Functional Mobil PT Goal 1 Goal / Goal Update -Pt. will be able to safely lift 10-15# object from floor to waist with safe mechanics without pain increase -Pt. will report pain levels at 2/10 at worst with prolonged standing -Pt. will present with less than 5% limitation with the Oswestry. Target Visit 8
--- NOTE | 2024-06-27 09:50 | OPREHPOC ---
Outpatient Therapy Plan of Care This is a Multidisciplinary Plan of Care that may contain components documented by all disciplines (PT, OT, and ST.) PT Problem 1 PT Problem #1 Knowledge Deficit PT Goal 1 Goal / Goal Update Pt. will be independent with a HEP addressing trunk mobility and core strength Target Visit 2 Progress Met PT Problem 2 PT Problem #2 Impaired Flexibility PT Goal 1 Goal / Goal Update Pt. will present at 10 degrees from full knee extension on the right with the 90/90 test Target Visit 4 Progress Met PT Problem 3 PT Problem #3 Impaired Functional Mobil PT Goal 1 Goal / Goal Update -Pt. will be able to safely lift 10-15# object from floor to waist with safe mechanics without pain increase -Pt. will report pain levels at 2/10 at worst with prolonged standing -Pt. will present with less than 5% limitation with the Oswestry. Target Visit 8 Progress Met
--- NOTE | 2024-06-27 09:50 | PTOPDC ---
Assessment and note entered by Amalia Maravilla, PT Evaluation Information Assessment Status Discharge Diagnosis spondylosis ICD-10 Condition Codes (PT) Pain in low back M54.50 Onset 06/07/24 Subjective Information Sahara Goldstein reports that she is doing better. The pain in her legs has gone away and she is feeling more flexible. She is back to her normal activity level and she would like to make today her last PT visit. Reported Pain Level Pain Score 0: Self Report Pain Score 0: Self Report Assessment PT Clinical Summary Sahara Goldstein has completed 5 skilled PT visits for low back pain. She is reporting resolved pain and improved flexibility. She is back to her previous activity level and would like to discontinue formal PT. She is demonstrating improved lumbar AROM, improved hamstring flexibility, no pain with straight leg raise testing, non-antalgic gait, and good body mechanics with floor to waist lifts of 15#. She has met all goals and will be discharged from skilled PT to her independent [facility]. Plan of Care PT Services Indicated No
== END 2024-06-27 10:05 | disposition home or self-care (01) ==
LOC: CHSPT 10:49
PROVIDERS: Visit Provider Family Medicine
DX: M47.816 Spondylosis without myelopathy or radiculopathy, lumbar region (principal)
CPT/HCPCS: 97110; 97161; 97750

== ENCOUNTER 2024-07-15 06:38 | Emergency (ER) | payer MEDICARE, OTHER, SELFPAY ==
--- NOTE | ~2024-07-15 | CT_ITS ---
EXAMINATION: CT abdomen pelvis w con DATE: 07/15/2024 07:59 INDICATION: Low abdominal pain. Nausea. TECHNIQUE: Computed tomography (CT) of the abdomen and pelvis was performed with 100 mL Omnipaque 350 intravenous contrast. Automated exposure control and iterative reconstruction technique were employe d. The dose-length product was 392.66 mGy-cm. COMPARISON: CT abdomen and pelvis 10/04/2023 FINDINGS: The visualized portions of the lung bases demonstrate mild atelectasis. No pleural effusion . The heart size is normal. No pericardial effusion. There are cysts in the liver measuring up to 1.9 cm. There are approximately four masses in the liver measuring up to 3.3 cm. There are changes of ch olecystectomy. The spleen, pancreas, adrenal glands, and kidneys are normal. There is diverticulosis of the colon without evidence of diverticulitis. There are no dilated loops of bowel. The appendix is not visualized. There are no pathologically enlarged lymph nodes. There is no free intraperitoneal f luid. There is lumbar levoscoliosis and severe thoracolumbar spondylosis. IMPRESSION: 1. New liver masses, consistent with metastatic disease. Ultrasound-guided core needle biopsy is sagrario mmended. Reviewed, dictated and finalized at location A. HALMIC NURSE IMPRESSION: 1. New liver masses, consistent with metastatic disease. Ultrasound-guided core needle biopsy is recommended.
[2024-07-15 06:50] VITALS: BP 187/88; PULSE 81; RESP 18; TEMP 37.1; O2SAT 100
--- NOTE | 2024-07-15 07:04 | PC.NURSE ---
Report given to Kerry RODRÍGUEZ.
[2024-07-15] MEDS: SODIUM CHLORIDE 0.9% IV 1,000 ML 999 ML IV CONT (07:21)
[2024-07-15] MEDS: ONDANSETRON INJ 4 MG/2 ML VIAL IV PUSH (07:22)
[2024-07-15 07:24] LABS: Add Urine Microscopic? NO; Appearance Urine Clear (Clear); Basophils Absolute Auto 0.05 K/mm3 (0.00-0.10); Basophils Percent Auto 0.6 % (0.0-1.0); Bilirubin Urine Negative (Negative); Blood Urine Negative (Negative); Color Urine Light Yellow (Yellow); Eosinophils Percent Auto 2.6 % (1.0-6.0); Glucose Urine UA Negative (Negative); Hematocrit 36.2 % (35.0-42.0); Hemoglobin 12.3 g/dL (11.7-13.8); Immature Granulocyte Absolute 0.02 K/mm3 (0.00-0.00); Immature Granulocyte Percent A 0.3 % (0.0-0.0); Ketones Urine Negative (Negative); Leukocyte Esterase Ur Negative LEU/UL (Negative); Lymphocytes Absolute Auto 0.93 K/mm3 (1.10-4.50); Mean Corpuscular Hemoglobin 30.3 pg (27.0-31.0); Mean Corpuscular Volume 89.2 fL (78.0-102.0); Monocytes Absolute Auto 0.32 K/mm3 (0.10-0.90); Monocytes Percent Auto 4.1 % (2.0-11.0); Neutrophils Percent Auto 80.4 % (50.0-70.0); Nitrate Urine Negative (Negative); Platelet Count Result 317 K/mm3 (150-420); Protein Urine Negative (Negative); Red Blood Count 4.06 M/mm3 (4.20-5.40); Red Cell Distribution Width 13.1 % (11.6-14.4); Urobilinogen Urine 0.2 mg/dL (0.2-1.0); White Blood Count 7.7 K/mm3 (4.8-10.8)
--- NOTE | 2024-07-15 07:26 | ED_ITS ---
HPI - Abdominal Pain General Chief Complaint: Urogenital-Female Stated Complaint: lower abd pain Time Seen by Provider: 07/15/24 07:01 Source: patient Mode of arrival: ambulatory Limitations: no limitations History of Present Illness HPI narrative: Patient is a 68-year-old female with lower abdominal pain for the past 3 days. No nausea vomiting or diarrhea. MD elicited complaint: abdominal pain Pertinent past history: constipation Onset (ago): day(s) (3) Pain Consistency: intermittent Location: suprapubic Severity: moderate Pain scale (0-10): 4 Quality: sharp Radiation: none Migration to: no migration Exacerbating factors: nothing Relieving factors: nothing Context: confirms other ( Patient has intermittent suprapubic pains over the past 3 days) Associated symptoms: denies other symptoms Related Data Home Medications Medication Instructions Recorded Confirmed buspirone 15 mg tablet 15 mg PO HS 07/15/24 07/15/24 diclofenac sodium 75 mg 75 mg PO DAILY 07/15/24 07/15/24 tablet,delayed release Allergies Allergy/AdvReac Type Severity Reaction Status Date / Time chocolate flavor Allergy Unknown Nausea Verified 06/07/24 09:49 cocoa Allergy Unknown Nausea Verified 06/07/24 09:49 Sulfa (Sulfonamide AdvReac Intermediate Nausea and Verified 06/07/24 09:49 Antibiotics) stomach issues Review of Systems Review of Systems: All systems reviewed & are unremarkable except as noted in HPI and below Constitutional: Constitutional: Reports no additional constitutional complaints Eyes: Eyes: Reports no additional eye complaints ENT: Reports system reviewed and no additional complaints, except as documented Cardiovascular: Cardiovascular: Reports no additional cardiovascular compl aints Respiratory: Respiratory: Reports no additional respiratory complaints Gastrointestinal: Gastrointestinal: Reports no additional gastrointestinal complaints Genitourinary: Genitourinary: Reports no additional female genitourinary co mplaints Musculoskeletal: Musculoskeletal: Reports no additional musculoskeletal complaints Integumentary/Breasts: Skin/Breast: Reports system reviewed and no additional complaints, except as docu Neurologic: Reports system reviewed and no additional complaints, except as documented Psychiatric: Psychiatric: Reports no additional psychiatric complaints Endocrine: Endocrine: Reports no additional endocrine complaints Hematologic/Lymphatic: Hematologic/Lymphatic: Reports no additional hematologic/lymphatic complaints Allergic/Immunologic: Allergic/Immunologic: Reports no additional allergic/immunologic complaints [facility] Past Medical History Medical History Anxiety BMI 28.0-28.9,adult Chronic constipation Constipation Hypertension Hypokalemia Insomnia Mixed hyperlipidemia Pneumonia Prediabetes Restless legs Surgical History Surgical History History of eye surgery 10/05/2023 Family History Family History Mother Hypertension Cerebrovascular accident, Onset Age: 79 Father Patient's father is , Onset Age: 64 Acute myocardial infarction Social History Social History Social History: Surrogate medical decision maker: Justin Goldstein, spouse. Code status: Full code. Smoking status: Never smoker Second hand tobacco smoke exposure: No Alcohol intake: never Substance use: never Substance use type: does not use Do You Feel Safe in your Home?: Yes Lack of Transportation: No Lack of Food: Never True Current Housing: I Have Housing Concerned About Future Housing: No Difficulty Paying Gas/Electric Bills: No Difficulty Paying for Meds: No Currently Unemployed: No Education: High School Diploma/GED Difficulty w/ Childcare or Family Care: No Living arrangements: with family Occupation/Education: retired Spiritual care concerns: Yes (Alex) Agree to blood products: Yes Exam Const: General: healthy appearing Nutritional Appearance: well nourished Orientation/consciousness: patient oriented x3 HENMT: Head: normal to inspection Ears: external ears normal Face/Nose/Sinus: Normal external nose present Eyes: Conjunctivae: conjunctivae normal Pupils: Equal, round and reactive pupils present EOM: EOMs intact bilaterally Neck: Neck: normal visual inspection Chest: Chest palpation & inspection: normal inspection of the chest Resp: Effort & Inspection: normal respiratory effort and not labored Auscul tation: clear to auscultation bilaterally and no crackles Cardio: Rate: regular rate Rhythm: regular rhythm Heart sounds: no murmurs GI: Inspection: non-distended GI Palp: Yes Soft to palpation, No Tenderness to palpation present (GI), No Guarding due to palpation present (GI), No Rigid due to palpation, No Hernia present, No Palpable mass present and No Rebound tenderness present Auscultation: normal bowel sounds, bowel sounds present, no hyperactive bowel sounds and no hypoactive bowel sounds : General: Yes bladder normal to palpation Back/Spine/Pelvis: Back: no CVA tenderness Skin: General skin exam: normal color Rashes: no rashes Wounds: no w ounds Neuro: General: patient oriented x3 Cranial nerves: Yes Nystagmus not present Speech: normal speech Gait exam (Neuro): Normal gait present Extrem: General: normal to inspection Psych: Mental Status: mental status grossly normal Affect: normal affect Attitude: cooperative Course Vital Signs Vital signs: Vital Signs Temperature 37.1 C 07/15/24 06:50 Pulse Rate 81 07/15/24 06:50 Respiratory Rate 18 07/15/24 06:50 Blood Pressure 187/88 H 07/15/24 06:50 Pulse Oximetry 100 07/15/24 06:50 Oxygen Delivery Room Air 07/15/24 06:50 Temperature 36.9 C 07/15/24 09:04 Pulse Rate 74 07/15/24 09:08 Respiratory Rate 18 07/15/24 09:08 Blood Pressure 212/86 H 07/15/24 09:08 Pulse Oximetry 96 07/15/24 09:08 Oxygen Delivery Room Air 07/15/24 09:08 MDM - Abdominal Pain MDM Narrative Medical decision making narrative: Patient is a 68-year-old female with pelvic pain of the lower abdomen for the past 3 days. Abdominal pain workup was done. For liver masses were found. Patient needs biopsy as soon as possible. No other findings for the pelvic pain at this time. Lab Data Attestation: I reviewed the patient's lab results. 07/15/24 07:18 07/15/24 07:18 Labs: Lab Results 07/15/24 Range/Units 07:18 WBC 7.7 (4.8-10.8) K/mm3 RBC 4.06 L (4.20-5.40) M/mm3 Hgb 12.3 (11.7-13.8) g/dL Hct 36.2 (35.0-42.0) % MCV 89.2 (78.0-102.0) fL MCH 30.3 (27.0-31.0) pg MCHC 34.0 (32-36) g/dL RDW 13.1 (11.6-14.4) % Plt Count 317 (150-420) K/mm3 MPV 11.0 (9.2-11.8) fl Immature Gran % (Auto) 0.3 H (0.0-0.0) % Neut % (Auto) 80.4 H (50.0-70.0) % Lymph % (Auto) 12.0 L (18.0-42.0) % [place] % (Auto) 4.1 (2.0-11.0) % Eos % (Auto) 2.6 (1.0-6.0) % Baso % (Auto) 0.6 (0.0-1.0) % Lymph # (Auto) 0.93 L (1.10-4.50) K/mm3 [place] # (Auto) 0.32 (0.10-0.90) K/mm3 Eos # (Auto) 0.20 (0.02-0.50) K/mm3 Baso # (Auto) 0.05 (0.00-0.10) K/mm3 Abs Immat Gran (auto) 0.02 H (0.00-0.00) K/mm3 Absolute Neuts (auto) 6.20 (1.70-7.20) K/mm3 Absolute Nucleated RBC 0.00 (0.00-0.00) K/mm3 Nucleated RBC % 0.0 (0-0.0) % Sodium 139 (136-145) mmol/L Potassium 4.2 (3.5-5.1) mmol/L Chloride 103 (98-108) mmol/L Carbon Dioxide 26 (21-32) mmol/L Anion Gap 10 (4-12) mmol/L BUN 18 (7-18) mg/dL Creatinine 0.98 (0.55-1.02) mg/dL Estim Creat Clear Calc 41 ml/min Estimated GFR 56 L (59 - ) Glucose 107 H (70-99) mg/dL Calculated Osmolality 289 (285-295) mOsm/kg Calcium 9.7 (8.5-10.1) mg/dL Total Bilirubin 0.2 (0.00-1.00) mg/dL AST 24 (15-37) U/L ALT 20 (14-59) U/L Alkaline Phosphatase 78 (46-116) U/L Total Protein 7.7 (6.4-8.2) g/dL Albumin 4.1 (3.4-5.0) g/dL Lipase 42 (16-77) U/L Urine Color Light yellow (Yellow) Urine Appearance Clear (Clear) Urine pH 6.0 (5.0-8.0) Ur Specific [place] 1.020 (1.010-1.020) Urine Protein Negative (Negative) Urine Glucose (UA) Negative (Negative) Urine Ketones Negative (Negative) Ur Blood (Man) Negative (Negative) Urine Nitrate Negative (Negative) Urine Bilirubin Negative (Negative) Urine Urobilinogen 0.2 (0.2-1.0) mg/dL Leukocyte Esterase Rfl Negative (Negative) SAHIL/UL Imaging Data Attestation: I personally reviewed and interpreted this imaging study as follows: Radiologist's impression: ITS Impressions Abdomen/Pelvis CT 07/15/24 08:03 IMPRESSION: 1. New liver masses, consistent with metastatic disease. Ultrasound-guided core needle biopsy is recommended. Discharge Plan Discharge Clinical Impression: Liver masses Abdominal pain Qualifiers: Abdominal location: unspecified location Qualified Code(s): R10.9 - Unspecified abdominal pain Patient Disposition: Home, Self-Care Condition: Stable Instructions: Antibiotic Form, Abdominal Pain (ED) Additional Instructions: Please follow-up with the primary doctor in the next week. You have 4 areas of masses in the right upper abdomen/ liver that are newly found today. You need biopsies of this area as soon as possible. Cancerous process needs to be ruled out. Prescriptions: No Action diclofenac sodium 75 mg tablet,delayed release (DR/EC) 75 mg PO DAILY buspirone 15 mg tablet 15 mg PO HS lisinopril 20 mg tablet 20 mg PO DAILY Qty: 90 3RF gemfibrozil 600 mg tablet 600 mg PO BID Qty: 180 1RF venlafaxine 150 mg capsule,extended release 24hr 150 mg PO QAM Qty: 90 1RF Follow-up/Referrals: Heidi Tabares MD [Primary Care Provider] - Time of Disposition: 09:06
[2024-07-15 07:37] LABS: Alanine Aminotransferase 20 U/L (14-59); Albumin Level 4.1 g/dL (3.4-5.0); Alkaline Phosphatase 78 U/L (46-116); Anion Gap 10 mmol/L (4-12); Aspartate Amino Transferase 24 U/L (15-37); Bilirubin,Total 0.2 mg/dL (0.00-1.00); Blood Urea Nitrogen 18 mg/dL (7-18); Calcium 9.7 mg/dL (8.5-10.1); Carbon Dioxide 26 mmol/L (21-32); Chloride 103 mmol/L (98-108); Estimated CRCL calculation 41 ml/min; Estimated Glomerular Filt Rate 56; Glucose 107 mg/dL (70-99); Lipase 42 U/L (16-77); Osmolality Calculated 289 mOsm/kg (285-295); Potassium 4.2 mmol/L (3.5-5.1); Sodium 139 mmol/L (136-145); Total Protein 7.7 g/dL (6.4-8.2)
[2024-07-15 08:12] VITALS: BP 185/69; PULSE 74; RESP 18; TEMP 36.4; O2SAT 96
[2024-07-15 09:08] VITALS: BP 212/86; PULSE 74; RESP 18; O2SAT 96
[2024-07-15 09:10] VITALS: TEMP 36.9
== END 2024-07-15 09:10 | disposition home or self-care (01) ==
PROVIDERS: Family Medicine; Emergency Provider Emergency Medicine; PCP Family Medicine
DX: R16.0 Hepatomegaly, not elsewhere classified (principal); R10.9 Unspecified abdominal pain; I10 Essential (primary) hypertension; E78.2 Mixed hyperlipidemia; Z79.899 Other long term (current) drug therapy
CPT/HCPCS: 36415; 74177; 80053; 81003; 83690; 85025; 96361; 96374; 99284; J2405; J7030; Q9967

== ENCOUNTER → 2024-08-01 01:30 | Day surgery (SDC) | payer MEDICARE, OTHER, SELFPAY ==
[2024-07-30 15:34] VITALS: BMI 25.2
[2024-08-01 12:35] VITALS: BP 143/62; PULSE 88; RESP 14; TEMP 36.3; O2SAT 100; BMI 24.5
[2024-08-01] MEDS: LACTATED RINGERS 1,000 ML 150 ML IV CONT (12:52)
--- NOTE | 2024-08-01 13:47 | P.PNAN_ITS ---
Anes - Initial Pre Proc Eval Procedure: Operation Date: 08/01/24 13:30 Proposed Procedures p Colonoscopy - Tam Isidro MD Date/Time: 08/01/24 13:47 Surgeon: Tam Isidro MD Pre Op Diagnosis: abdominal pain Patient Data Age: 68 Gender: F Height: 1.65 m Weight: 66.9 kg Last Vital Signs Temp 36.3 C L 08/01/24 12:35 Pulse 88 08/01/24 12:35 Resp 14 08/01/24 12:35 BP 143/62 H 08/01/24 12:35 Pulse Ox 100 08/01/24 12:35 O2 Del Method Room Air 08/01/24 12:35 Allergies Allergy/AdvReac Type Severity Reaction Status Date / Time cocoa AdvReac Intermediate Nausea Verified 08/01/24 12:32 Sulfa (Sulfonamide AdvReac Intermediate Nausea and Verified 08/01/24 12:32 Antibiotics) stomach issues Home Medications ?Medication ?Instructions ?Recorded ?Confirmed ?Type lisinopril 20 mg tablet 20 mg PO DAILY #90 tabs 02/19/24 08/01/24 Rx gemfibrozil 600 mg tablet 600 mg PO BID #180 tabs 03/29/24 08/01/24 Rx venlafaxine 150 mg 150 mg PO QAM #90 caps 05/13/24 08/01/24 Rx capsule,extended release 24 hr buspirone 15 mg tablet 15 mg PO HS 07/15/24 08/01/24 History diclofenac sodium 75 mg 75 mg PO DAILY 07/15/24 08/01/24 History tablet,delayed release tramadol 50 mg tablet 50 mg PO Q6H PRN pain #30 tabs 07/25/24 08/01/24 Rx cetirizine 10 mg capsule (All Day 10 mg PO DAILY 07/30/24 08/01/24 History Allergy (cetirizine)) docusate sodium 100 mg capsule 100 mg PO HS 07/30/24 08/01/24 History multivitamin (Daily Multi-Vitamin 1 tablet PO DAILY 07/30/24 08/01/24 History tablet) Patient hx anesthesia problems: none Family hx anesthesia problems: none Results Review: All pre-operative results and documents have been reviewed as part of the pre- operative evaluation. [facility] Past Medical History Medical History Hypokalemia Chronic constipation Constipation Hypertension Prediabetes BMI 28.0-28.9,adult Restless legs Insomnia Mixed hyperlipidemia Anxiety Pneumonia Surgical History Surgical History History of eye surgery 10/05/2023 Family History Family History Mother Hypertension Cerebrovascular accident, Onset Age: 79 Father Patient's father is , Onset Age: 64 Acute myocardial infarction Social History Social History Social History: Surrogate medical decision maker: Justin Goldstein, spouse. Code status: Full code. Smoking status: Never smoker Second hand tobacco smoke exposure: No Alcohol intake: current Substance use: never Substance use type: does not use Do You Feel Safe in your Home?: Yes Lack of Transportation: No Lack of Food: Never True Current Housing: I Have Housing Concerned About Future Housing: No Difficulty Paying Gas/Electric Bills: No Difficulty Paying for Meds: No Currently Unemployed: No Education: High School Diploma/GED Difficulty w/ Childcare or Family Care: No Living arrangements: with family Occupation/Education: retired Spiritual care concerns: No Agree to blood products: Yes Anes - Eval Final PreProcedure Day of Procedure 08/01/24 13:47 Patient weight: normal Heart: regular rate and rhythm Lungs: clear to auscultation Airway: Mallampati scale class II Neurological: alert and oriented Last oral intake: >/= 8 hours ASA classification: III Emergent: no Anesthetic plan: proceed Anesthesia type and monitoring: general GIVS and standard monitoring Results Review: All pre-operative results and documents have been reviewed as part of the pre- operative evaluation. Informed Consent: The patient's anesthetic plan and its attendant risks and benefits were discussed with the patient/family/POA. Questions were solicited and answers provided to the satisfaction of the patient/family/POA.
--- NOTE | 2024-08-01 14:08 | PM.IMHP ---
H&P: HPI History of Present Illness Date/Time: 08/01/24 14:08 Chief Complaint: Liver metastases- suspect colon neoplasm. Narrative: The patient with finding of space-occupying lesions in the liver. She complains of severe diffuse abdominal pain frequently radiating to the back and new onset constipation. Her CEA evel is above 400. There is suspicion for colorectal cancer with liver metastases. Here for colonoscopy. Review of Systems Review of Systems: All systems reviewed & are unremarkable except as noted in HPI and below PMFSH Past Medical History Medical History Hypokalemia Chronic constipation Constipation Hypertension Prediabetes BMI 28.0-28.9,adult Restless legs Insomnia Mixed hyperlipidemia Anxiety Pneumonia Surgical History Surgical History History of eye surgery 10/05/2023 Family History Family History Mother Hypertension Cerebrovascular accident, Onset Age: 79 Father Patient's father is , Onset Age: 64 Acute myocardial infarction Social History Social History Social History: Surrogate medical decision maker: Justin Goldstein, spouse. Code status: Full code. Smoking status: Never smoker Second hand tobacco smoke exposure: No Alcohol intake: current Substance use: never Substance use type: does not use Do You Feel Safe in your Home?: Yes Lack of Transportation: No Lack of Food: Never True Current Housing: I Have Housing Concerned About Future Housing: No Difficulty Paying Gas/Electric Bills: No Difficulty Paying for Meds: No Currently Unemployed: No Education: High School Diploma/GED Difficulty w/ Childcare or Family Care: No Living arrangements: with family Occupation/Education: retired Spiritual care concerns: No Agree to blood products: Yes Meds Home Medications and Allergies Home Medications ?Medication ?Instructions ?Recorded ?Confirmed ?Type lisinopril 20 mg tablet 20 mg PO DAILY #90 tabs 02/19/24 08/01/24 Rx gemfibrozil 600 mg tablet 600 mg PO BID #180 tabs 03/29/24 08/01/24 Rx venlafaxine 150 mg 150 mg PO QAM #90 caps 05/13/24 08/01/24 Rx capsule,extended release 24 hr buspirone 15 mg tablet 15 mg PO HS 07/15/24 08/01/24 History diclofenac sodium 75 mg 75 mg PO DAILY 07/15/24 08/01/24 History tablet,delayed release tramadol 50 mg tablet 50 mg PO Q6H PRN pain #30 tabs 07/25/24 08/01/24 Rx cetirizine 10 mg capsule (All Day 10 mg PO DAILY 07/30/24 08/01/24 History Allergy (cetirizine)) docusate sodium 100 mg capsule 100 mg PO HS 07/30/24 08/01/24 History multivitamin (Daily Multi-Vitamin 1 tablet PO DAILY 07/30/24 08/01/24 History tablet) Allergies Allergy/AdvReac Type Severity Reaction Status Date / Time cocoa AdvReac Intermediate Nausea Verified 08/01/24 12:32 Sulfa (Sulfonamide AdvReac Intermediate Nausea and Verified 08/01/24 12:32 Antibiotics) stomach issues Vital Signs Vital Signs - 24 hr 08/01/24 12:35 Temperature 97.4 F L Pulse Rate 88 Respiratory Rate 14 Blood Pressure 143/62 H Pulse Oximetry 100 Oxygen Delivery Room Air Exam Const: General: cooperative and healthy appearing Resp: Effort & Inspection: normal respiratory effort and able to speak in complete sentences Auscultation: clear to auscultation bilaterally Cardio: Rate: regular rate Rhythm: regular rhythm GI: Inspection: normal to inspection GI Palp: No No hepatosplenomegaly present Auscultation: normal bowel sounds Rectal Exam: deferred Skin: General skin exam: normal color Psych: Appearance: grossly normal Mental Status: mental status grossly normal Assessment and Plan Assessment and plan (1) Suspected malignant neoplasm of gastrointestinal tract: Code(s): R68.89 - Other general symptoms and signs Status: Acute Assessment and Plan: The patient is deemed a good candidate for the procedure. Consent signed. Will proceed.
[2024-08-01] MEDS: SIMETHICONE ORAL SUSPENSION 20 MG/0.3 ML 30 ML BOTTLE 0.6 ML IRRIGATION (14:21)
[2024-08-01 14:36] VITALS: BP 125/60; PULSE 68; RESP 22; O2SAT 100
[2024-08-01 14:46] VITALS: BP 130/64; PULSE 69; RESP 23; O2SAT 100
[2024-08-01 14:56] VITALS: BP 156/74; PULSE 67; RESP 21; O2SAT 100
== END | disposition home or self-care (01) ==
PROVIDERS: PCP Family Medicine; Visit Provider Internal Medicine Gastroenterology
PROC: 0DJD8ZZ Inspection of Lower Intestinal Tract, Via Natural or Artificial Opening Endoscopic (ICD-10-PCS; CPT 45378; principal; 2024-08-01 13:30)
DX: R68.89 Other general symptoms and signs (principal); K57.30 Diverticulosis of large intestine without perforation or abscess without bleeding; I10 Essential (primary) hypertension; R73.03 Prediabetes; G25.81 Restless legs syndrome; G47.00 Insomnia, unspecified; E78.2 Mixed hyperlipidemia; F41.9 Anxiety disorder, unspecified; E87.6 Hypokalemia; K59.09 Other constipation; Z79.891 Long term (current) use of opiate analgesic; Z98.890 Other specified postprocedural states; Z82.49 Family history of ischemic heart disease and other diseases of the circulatory system
CPT/HCPCS: 45378; J2003; J2704; J7120

== ENCOUNTER 2024-08-02 01:01 | Day surgery (SDC) | payer MEDICARE, OTHER, SELFPAY ==
[2024-08-02 09:54] VITALS: BMI 25.2
[2024-08-02 13:02] VITALS: BP 173/78; PULSE 87; RESP 20; TEMP 36.2; O2SAT 99
[2024-08-02] MEDS: LACTATED RINGERS 1,000 ML 150 ML IV CONT (13:11)
--- NOTE | 2024-08-02 13:51 | P.PNAN_ITS ---
Anes - Eval Final PreProcedure Day of Procedure 08/02/24 13:51 Patient weight: normal Heart: regular rate and rhythm Lungs: clear to auscultation Airway: Mallampati scale class II Neurological: alert and oriented Last oral intake: >/= 8 hours ASA classification: III Emergent: no Anesthetic plan: proceed Anesthesia type and monitoring: general GIVS and standard monitoring Results Review: All pre-operative results and documents have been reviewed as part of the pre- operative evaluation. Informed Consent: The patient's anesthetic plan and its attendant risks and benefits were discussed with the patient/family/POA. Questions were solicited and answers provided to the satisfaction of the patient/family/POA.
--- NOTE | 2024-08-02 13:51 | PM.IMHP ---
H&P: HPI History of Present Illness Date/Time: 08/02/24 13:51 Chief Complaint: Liver metastases Narrative: the patient has multiple focal lesons in the CT scan of the liver very suggestive of metastases and an elevated CEA level. Her colonoscopy yesterday was negative. She is here today for EGD to look for a primary tumor. Review of Systems Review of Systems: All systems reviewed & are unremarkable except as noted in HPI and below PMFSH Past Medical History Medical History Hypokalemia Chronic constipation Constipation Hypertension Prediabetes BMI 28.0-28.9,adult Restless legs Insomnia Mixed hyperlipidemia Anxiety Pneumonia Surgical History Surgical History History of eye surgery 10/05/2023 Family History Family History Mother Hypertension Cerebrovascular accident, Onset Age: 79 Father Patient's father is , Onset Age: 64 Acute myocardial infarction Social History Social History Social History: Surrogate medical decision maker: Justin Goldstein, spouse. Code status: Full code. Smoking status: Never smoker Second hand tobacco smoke exposure: No Alcohol intake: current Substance use: never Substance use type: does not use Do You Feel Safe in your Home?: Yes Lack of Transportation: No Lack of Food: Never True Current Housing: I Have Housing Concerned About Future Housing: No Difficulty Paying Gas/Electric Bills: No Difficulty Paying for Meds: No Currently Unemployed: No Education: High School Diploma/GED Difficulty w/ Childcare or Family Care: No Living arrangements: with family Occupation/Education: retired Spiritual care concerns: No Agree to blood products: Yes Meds Home Medications and Allergies Home Medications ?Medication ?Instructions ?Recorded ?Confirmed ?Type lisinopril 20 mg tablet 20 mg PO DAILY #90 tabs 02/19/24 08/02/24 Rx gemfibrozil 600 mg tablet 600 mg PO BID #180 tabs 03/29/24 08/02/24 Rx venlafaxine 150 mg 150 mg PO QAM #90 caps 05/13/24 08/02/24 Rx capsule,extended release 24 hr buspirone 15 mg tablet 15 mg PO HS 07/15/24 08/02/24 History diclofenac sodium 75 mg 75 mg PO DAILY 07/15/24 08/02/24 History tablet,delayed release tramadol 50 mg tablet 50 mg PO Q6H PRN pain #30 tabs 07/25/24 08/02/24 Rx cetirizine 10 mg capsule (All Day 10 mg PO DAILY 07/30/24 08/02/24 History Allergy (cetirizine)) docusate sodium 100 mg capsule 100 mg PO HS 07/30/24 08/02/24 History multivitamin (Daily Multi-Vitamin 1 tablet PO DAILY 07/30/24 08/02/24 History tablet) Allergies Allergy/AdvReac Type Severity Reaction Status Date / Time cocoa AdvReac Intermediate Nausea Verified 08/02/24 13:00 Sulfa (Sulfonamide AdvReac Intermediate Nausea and Verified 08/02/24 13:00 Antibiotics) stomach issues Vital Signs Vital Signs - 24 hr 08/02/24 13:02 Temperature 97.2 F L Pulse Rate 87 Respiratory Rate 20 Blood Pressure 173/78 H Pulse Oximetry 99 Oxygen Delivery Room Air Exam Const: General: cooperative and healthy appearing Resp: Effort & Inspection: normal respiratory effort and able to speak in complete sentences Auscultation: clear to auscultation bilaterally Cardio: Rate: regular rate Rhythm: regular rhythm GI: Inspection: normal to inspection GI Palp: No No hepatosplenomegaly present Auscultation: normal bowel sounds Rectal Exam: deferred Skin: General skin exam: normal color Psych: Appearance: grossly normal Mental Status: mental status grossly normal Assessment and Plan Assessment and plan (1) Suspected malignant neoplasm of gastrointestinal tract: Code(s): R68.89 - Other general symptoms and signs Status: Acute Assessment and Plan: The patient is deemed a good candidate for the procedure. Consent signed. Will proceed.
[2024-08-02 14:30] VITALS: BP 142/80; PULSE 74; RESP 20; O2SAT 100
[2024-08-02 14:40] VITALS: BP 152/69; PULSE 74; RESP 19; O2SAT 100
[2024-08-02 14:50] VITALS: BP 175/93; PULSE 70; RESP 21; O2SAT 100
== END 2024-08-02 15:05 | disposition home or self-care (01) ==
PROVIDERS: PCP Family Medicine; Visit Provider Internal Medicine Gastroenterology
PROC: 0DJ08ZZ Inspection of Upper Intestinal Tract, Via Natural or Artificial Opening Endoscopic (ICD-10-PCS; CPT 43235; principal; 2024-08-02 14:30)
DX: K29.50 Unspecified chronic gastritis without bleeding (principal)
CPT/HCPCS: 43239; 88305; J2003; J2704; J7120

== ENCOUNTER 2024-08-13 08:32 | Outpatient (CLI) | payer MEDICARE, OTHER, SELFPAY ==
--- NOTE | 2024-08-06 13:15 | PC.NURSE ---
Pre Radiology instructions Report to the outpatient eder marshall on date _08/13/24____ at time _9am for procedure Time: 11 am____ YOU MAY BE MONITORED AT HOSPITAL FOR UP TO 4 HOURS AFTER YOUR PROCEDURE. A visitor will be allowed to accompany the patient into the hospital. You and your visitor will be asked to self-screen and do not enter if you have any COVID symptoms. A mask is OPTIONAL within the hospital. Patients are to have no food or drink 6 hours prior to procedure time Driving will be restricted after the procedure, you must have a person to drive you home. Labs will be drawn in preop area and once reviewed, you will be taken to radiology area for procedure. When the procedure is completed, you will be taken to outpatient where you will be monitored for several hours. You may have one visitor in this area. Other than holding anti-coagulants, patient may take other medication(s) as scheduled. Prior to your appointment date patients are instructed to hold anti-coagulants after discussing with ordering provider to stop. If unable to discontinue anti-coagulants please notify radiologist. ? No aspirin or warfarin (Coumadin) for 7 days prior to the procedure. ? No clopidogrel (Plavix), ticagrelor (Brilinta), prasugrel (Effient) or dabigatran (Pradaxa) for 5 days prior to the procedure. ? No rivaroxaban (Xarelto), apixaban (Eliquis), dipyridamole (Aggrenox or Persantine) or cilostazol (Pletal) for 2 days prior to the procedure. Medications to discontinue per physician: __none Date to take last dose: Please leave all valuables, including medications, at home the day of procedure. The hospital will not accept responsibility for valuables. Wear comfortable, loose fitting clothing.? Follow any additional instructions given to you from ordering provider. Telephone instructions given to __PATIENT and asked if any additional questions and then verbalized understanding. Patient advised to call scheduling provider office or registration scheduling [phone] if any additional questions.
[2024-08-06 13:19] VITALS: BMI 25.6
[2024-08-13] VITALS (13 sets, daily range): BP systolic 136–177; BP diastolic 58–75; PULSE 68–78; RESP 15–18; TEMP 36.6; O2SAT 96–99; BMI 25.2
--- NOTE | ~2024-08-13 | US_ITS ---
EXAMINATION: US biopsy liver DATE: 08/13/2024 11:56 INDICATION: Liver mass. TECHNIQUE: The procedure including the risks, benefits, and alternatives was discussed with the patie nt. Risks discussed included bleeding and infection. The patient understood the risks and agreed to p roceed. The skin overlying the liver was prepped and draped in usual sterile fashion. Anesthetic was administered with 1% lidocaine subcutaneously. An 18 gauge core biopsy needle was then used to obta in 3 core biopsy specimens under continuous sonographic guidance. The entry site was cleaned and dres sed. There were no immediate complications. FINDINGS: Ultrasound images demonstrate the needle in a 3.0 cm mass in right hepatic lobe. IMPRESSION: 1. Ultrasound-guided core needle biopsy of a mass in right hepatic lobe. Reviewed, dictated and finalized at location A. R READER INSPECTOR
[2024-08-13 10:05] LABS: Prothrombin Time 13.6 Seconds (11.1-14.7)
[2024-08-13] MEDS: traMADol HCL (*CRX) 50 MG TABLET PO (10:07)
[2024-08-13] MEDS: SODIUM CHLORIDE 0.9% IV 500 ML 999 ML IV CONT (12:30)
[2024-08-13] MEDS: ONDANSETRON INJ 4 MG/2 ML VIAL IV PUSH (12:32)
[2024-08-13] MEDS: ACETAMINOPHEN 500 MG TABLET 1000 MG PO (13:10)
[2024-08-13] MEDS: lisinopriL 20 MG TABLET PO (13:16)
== END 2024-08-13 08:33 | disposition home or self-care (01) ==
PROVIDERS: PCP Family Medicine; Referring Provider Internal Medicine Gastroenterology; Visit Provider Radiology Diagnostic Radiology
PROC: BF45ZZZ Ultrasonography of Liver (ICD-10-PCS; CPT 47000; principal; 2024-08-13 11:00)
DX: C22.9 Malignant neoplasm of liver, not specified as primary or secondary (principal)
CPT/HCPCS: 36415; 47000; 76942; 85610; 88307; 88342; A9270; J2405; J7040

== ENCOUNTER 2024-08-17 08:18 | Outpatient (CLI) | payer MEDICARE, OTHER, SELFPAY ==
--- NOTE | ~2024-08-17 | CT_ITS ---
EXAMINATION: CT chest abdomen pelvis w con DATE: 08/17/2024 08:45 INDICATION: Worsening right lower quadrant abdominal pain. Adenocarcinoma of unknown site. TECHNIQUE: Computed tomography (CT) of the chest, abdomen, and pelvis was performed with 100 mL Omnip aque-350 intravenous contrast. Automated exposure control and iterative reconstruction technique were employed. The dose-length product was 529.07 mGy-cm. COMPARISON: 07/15/2024 FINDINGS: CHEST CT: Elevation the left hemidiaphragm. Mild dependent atelectasis in bilateral lower lobes. No pneumonia, suspicious pulmonary nodules, pulmonary edema or pleural effusion. Arch size is normal. No pericardia l effusion. Thoracic aorta is normal in caliber with no dissection. No pathologically enlarged thorac ic lymphadenopathy. Severe thoracic spondylosis. ABDOMEN/PELVIS CT: There are multiple hypoenhancing hepatic masses with peripheral enhancement, the largest measuring 4. 3 cm in segment 5 of the liver which was recently biopsied demonstrating adenocarcinoma and which is increased from 3.5 cm on study from one month prior. There are a few centrally hypoenhancing masses a long the toño hepatis which could represent metastatic lymph nodes although the largest measures 1.7 x 1.3 cm and appears contiguous with both the head of the pancreas and a couple cholecystectomy clip s at the gallbladder fossa and could not exclude primary pancreatic cancer or a gallbladder/biliary o rigin. Remainder of the pancreas is normal. Spleen, bilateral adrenal glands and kidneys are normal. There are few scattered colonic diverticula without adjacent inflammatory stranding to suggest divert iculitis. Small bowel and appendix are normal. Bladder, uterus and bilateral adnexa are unremarkable. No free intraperitoneal gas or fluid. Lumbar levoscoliosis with severe spondylosis. IMPRESSION: 1. Multiple enlarging hypoenhancing hepatic masses consistent with biopsy-proven adenocarcinoma. Ther e are few smaller hypoenhancing soft tissue densities at the toño hepatis consistent with likely met astatic lymphadenopathy although one is contiguous with the head of the pancreas and a couple cholecy stectomy clips suggesting possibility of pancreatic adenocarcinoma or gallbladder/biliary primary mal ignancy. 2. No evident malignancy/metastatic disease in the thorax. Reviewed, dictated and finalized at location B. RPRISE ARCHITECT IMPRESSION: 1. Multiple enlarging hypoenhancing hepatic masses consistent with biopsy-prove n adenocarcinoma. There are few smaller hypoenhancing soft tissue densities at the toño hepatis consistent with likely metastatic lymphadenopathy although on e is contiguous with the head of the pancreas and a couple cholecystectomy clip s suggesting possibility of pancreatic adenocarcinoma or gallbladder/biliary pr imary malignancy. 2. No evident malignancy/metastatic disease in the thorax.
[2024-08-17 08:40] LABS: Estimated Glomerular Filt Rate 45
--- OUTSIDE RECORDS SUMMARY | 2024-08-24 17:59 | XMS_ITS | Patient Health Summary ---
Author Organization [facility] Address [address] [place] [address] Care Team Providers Care Awning Hanger Supervisor Name Role Phone Bruce Teresa MD Primary Care Provider [phone] Note from [facility],non-owned Affiliates and Associated Physician Practices is amultiple site organization consisting of ambulatory clinics and hospital sitesin [place], [place], [place] and [place]. This disclosure is being madepursuant to the Care Everywhere program and may not contain all information available regarding this patient. Last updated 18.[facility] Allergies No known active allergies Medications * Be aware that medications may not be up to date on this document. Alwaysverify current medications with the patient. * fenofibrate (LOFIBRA) 160 MG tablet Take 160 mg by mouth once daily Take with largest meal of the day. * venlafaxine (EFFEXOR) 37.5 MG tablet Take 75 mg by mouth 3 times daily with meals * lisinopril (PRINIVIL; ZESTRIL) 10 MG tablet Take 10 mg by mouth once daily Social History Tobacco Use Types Packs/Day Years Used Date Smoking Tobacco: Never Smokeless Tobacco: Never Sex and Gender Information Value Date Recorded Sex Assigned at Not on file Gender Identity Not on file Sexual Orientation Not on file Last Filed Vital Signs Vital Sign Reading Time Taken Comments Blood Pressure 128/82 02/15/2018 11:35 AM CDT Pulse 63 02/15/2018 11:35 AM CDT Temperature 37 ??C (98.6 ??F) 02/15/2018 11:35 AM CDT Respiratory Rate 16 02/15/2018 11:35 AM CDT Oxygen Saturation 98% 02/15/2018 11:35 AM CDT Inhaled Oxygen Concentration - - Weight 76.2 kg (168 lb) 02/15/2018 11:35 AM CDT Height 167.6 cm (5' 6 ) 02/15/2018 11:35 AM CDT Body Mass Index 27.12 02/15/2018 11:35 AM CDT Procedures * CULTURE URINE(Performed 02/15/2018) Performed for Acute cystitis with hematuria * URINALYSIS AUTO - POINT OF CARE (AMB) STL(Performed 02/15/2018) Performed for Acute cystitis with hematuria Results * (ABNORMAL) CULTURE URINE (02/15/2018 11:51 AM CDT) Urine Culture Routine Final report(A) [facility] ACCOUNT BILL Result 1 Citrobacter freundii(A) [facility] ACCOUNT BILL Comment:Greater than 100,000 colony forming units per mL Antimicrobial Susceptibility [facility] ACCOUNT BILL Comment: ? S = Susceptible; I = Intermediate; R = Resistant ? P = Positive; N = Negative ?MICS are expressed in micrograms per mL ?? Antibiotic ? RSLT#1 ?RSLT#2 ?RSLT#3 ?RSLT#4 Amoxicillin/Clavulanic Acid ?R Cefazolin ?R Cefepime ? S Ceftriaxone ?S Cefuroxime ? R Ciprofloxacin ?S Ertapenem ?S Gentamicin ? S Imipenem ? S Levofloxacin ? S Meropenem ?S Nitrofurantoin ? S Tetracycline ? S Tobramycin ? S Trimethoprim/Sulfa ? S Urine URINE SPECIMEN OBTAINED BY CLEAN CATCH PROCEDURE / Unknown 02/15/2018 11:51 AM CDT 02/16/2018 Narrative Resulting Agency Comment [facility] [place] [address] [facility] ??[facility] [id number] Huan Wilson APRN-EXHIBITION [facility] - MICROBIOLOG Y ORDERABLES [facility] ACCOUNT BILL [address] [place] [address] * URINALYSIS AUTO - POINT OF CARE (AMB) STL (02/15/2018 11:47 AM CDT) Clarity UA POCT cloudy Color UA POCT yellow Leukocyte UA 125+ Negative Nitrite UA POCT negative Negative Urobilinogen UA 0.2 0.1 - 1.0 Protein UA POCT 15+ Negative pH UA 6.5 5.0 - 8.0 pH units Blood UA 50 Negative Specific [place] UA POCT 1.010 1.002 - 1.030 Ketone UA negative Negative Bilirubin UA POCT negative Negative Glucose UA negative Negative Expiration Date 03 26 2019 Lot # [id number] QC Verified Yes Yes Urine URINE / Unknown 02/15/2018 1 1:47 AM CDT Huan Wilson APRN-EXH[facility] - POINT OF CA RE ORDERABLES Care Teams Awning Hanger Supervisor Relationship Specialty Start Date End Date Bruce Teresa MD [address] [place] [address] PCP - General Family Medicine 02/15/18
--- OUTSIDE RECORDS SUMMARY | 2024-08-24 17:59 | XMS_ITS | Referral Summary ---
Author Organization [facility] Address [address] [place] [address] Care Team Providers Care Medical Data Entry Clerk Name Role Phone Bruce Teresa MD Primary Care Provider [phone] Source Comments [facility],non-owned Affiliates and Associated Physician Practices is amultiple site organization consisting of ambulatory clinics and hospital sitesin [place], [place], [place] and [place]. This disclosure is being madepursuant to the Care Everywhere program and may not contain all information available regarding this patient. Last updated 18.[facility] Allergies No known active allergies Medications * Be aware that medications may not be up to date on this document. Alwaysverify current medications with the patient. Medication Sig Dispensed Refills Start Date End Date Status fenofibrate (LOFIBRA) 160 MG tablet Take 160 mg by mouth once daily Take with largest meal of the day. Active venlafaxine (EFFEXOR) 37.5 MG tablet Take 75 mg by mouth 3 times daily with meals Active lisinopril (PRINIVIL; ZESTRIL) 10 MG tablet Take 10 mg by mouth once daily Active Social History Tobacco Use Types Packs/Day Years [...] Mass Index 27.12 02/15/2018 11:35 AM CDT Plan of Treatment Not on file Care Teams Medical Data Entry Clerk Relationship Specialty Start Date End Date Bruce Teresa MD [address] [place] [id number] PCP - General Family Medicine 02/15/18
--- OUTSIDE RECORDS SUMMARY | 2024-08-24 17:59 | XMS_ITS | Continuity of Care Document ---
Author Organization [facility] Address [address] [place] [address] Phone Care Team Providers Care Shipping And Receiving Weigher Name Role Phone Angelika OD OD, Rod Unavailable Unavailabl e Procedures Procedure Date Refraction Eye Exam Established Pt Refraction Visual Field Examination(s) No Charge Contact Lens Check Contact Lens Fitting Office/outpatient Visit, Est Visual Field Examination(s) Fundus Photography W/ Report QuantifEye Advance Directives Directive Yes / No Effective Date File Name No Information Encounters Encounter Description Practice Location Reason(s) For Visit Diagnoses Date Provider Providers Copied on Encounter [facility], [address], [place], [place], [id number], [place] tel:[phone] SEC Concetta PRADHAN Mindy No Information Angelika OD Rod. [address] [facility] [place], [id number], [place]. tel:[phone] Referring Provider: Rod Carney OD P, [address] [facility] [place], [address] . tel:[phone] [facility], [address], [place], [place], [address], [place] tel:[phone] SEC [facility] No Information Angelika OD Rod. [address], [place], [id number], [place]. tel:[phone] [facility], [address], [place], [place], [place], [address], [place] tel:[phone] [facility] No Information Angelika OD Rod. [address], [place], [address], [place]. tel:[phone] Office/outpat ient Visit, [facility], [address], [place], [place], [address], [place] tel:[phone] [facility] No Information Angelika OD Rod. [address], [place], [id number], [place]. tel:[phone] Referring Provider: Rod Carney OD P, [address] [place], [address] . tel:[phone] Family History Family Member Type Diagnosis Age At Onset No Information Payers Payer name Insurance type Covered republican ID Ishaponcho henderson(s) [facility] Commercial CI [id number] Social History Type Description Quantity Date Captured Comments Sex Female Smoking Status No Information Chief Complaint And Reason For Visit No Information Reason For Referral Reason For Referral No Information History Of Present Illness Encounter Date Complaint History Of Prese nt Illness No Information Functional Status Date Functional Assessmen t No Information Instructions Date Instruction Additional Infor mation No Information Assessments Type Assessment Date No Information Patient Care Teams Name Effective Dates (start - stop) Status Members No Information
--- OUTSIDE RECORDS SUMMARY | 2024-08-24 17:59 | XMS_ITS | Clinical Summary ---
Author Organization [facility] Address [address] [place] [address] Care Team Providers Care Superintendent Fish Hatchery Name Role Phone Bruce Teresa MD Primary Care Provider [phone] Source Comments [facility],non-owned Affiliates and Associated Physician Practices is amultiple site organization consisting of ambulatory clinics and hospital sitesin [place], [place], [place] and [place]. This disclosure is being madepursuant to the Care Everywhere program and may not contain all information available regarding this patient. Last updated 18.[facility] Allergies No known active allergies Medications * [...] 10 mg by mouth once daily Active Family History Medical History Relation Name Comments Other - Cardiac Father [place] CVA Mother Hypertension Mother Relation Name Status Comments Father Mother Social History Tobacco Use Types Packs/Day Years [...] 02/15/2018 11:35 AM CDT Plan of Treatment Health Maintenance Due Date Last Done Comments BONE DENSITY TESTING 1955 COLOGUARD (AGES 45-75) - COL ON CA SCREENING 1955 COLON MONITORING 1955 COLONOSCOPY - COLON CA SCREENING 1955 CT COLONOGRAPHY - COLON CA SCREENING 1955 Colorectal Cancer Screening 1955 FIT - COLON CA SCREENING 1955 FLEX SIG - COLON CA SCREENING 1955 LIPID TESTING 1955 MAMMOGRAM 1955 MEDICARE AWV ? 12 MONTHS 1955 HEPATITIS C SCREENING 09/18/1972 DTAP/TDAP/TD VACCINES (1 - Tdap) 1973 ZOSTER VACCINE (1 of 2) 2004 SCREENING FOR DIABETES 02/15/2018 PNEUMOCOCCAL VACCINE 50+ (1 of 1 - PCV) 2019 DEPRESSION SCREENING 08/15/2023 COVID-19 VACCINE (1 - 2023-2 5 season) 2024 INFLUENZA VACCINE (#1) 2024 Respiratory Syncytial Virus (RSV) Vaccine Pt: or over 60 yrs (1 - 1-dose 75+ series) 2029 HEPATITIS B VACCINE Aged Out No longe r eligible based on patient's age to complete this topic HIB VACCINE Aged Out No longer eligi ble based on patient's age to complete this topic HPV VACCINE Aged Out No longer eligi ble based on patient's age to complete this topic MENINGOCOCCAL VACCINE Aged Out No ilya paco eligible based on patient's age to complete this topic Insurance Payer Benefit Plan / Group Subscriber ID Effective Dates Phone Address Type MEDICARE MEDICARE PART A AND B [id number] Effective for all dates [address] [place] [address] Medicare [employer] [id number] Effective for all dates [address] [place] [address] SELF PAY NO INSURANCE SELF PAY NO INSURANCE Effective for all dates [place], [place] Self Pay MEDICARE MEDICARE PART A AND B [id number] Effective for all dates [address] [place] [address] Medicare Backdoor [facility] [employer] [facility] [employer] Effective for all dates [address] [place] [address] MEDICARE MEDICARE PART A AND B [id number] Effective for all dates [address] [place] [address] Medicare [facility] [employer] [facility] [employer] Effective for all dates [address] [place] [address] Care Teams Superintendent Fish Hatchery Relationship Specialty Start Date End Date Bruce Teresa MD [address] [place] [address] PCP - General Family Medicine 02/15/18
--- OUTSIDE RECORDS SUMMARY | 2024-08-24 17:59 | XMS_ITS | Encounter Summary ---
Author Organization [facility] Address [address] [place] [address] Care Team Providers Care Cuff Setter Lockstitch Name Role Phone Bruce Teresa MD Primary Care Provider [phone] Reason for Visit * Reason Comments Bladder infection Encounter Details Date Type Department Care Team (Late st Contact Info) Description 02/15/2018 11:40 AM CDT Office Visit [facility] [address] [phone] Provider, [facility] Exp Ashley Acute cystitis with hematuria (Primary Dx) Social History Tobacco Use Types Packs/Day Years Used Date Smoking Tobacco: Never Smokeless Tobacco: Never Sex and Gender Information Value Date Recorded Sex Assigned at Not on file Gender Identity Not on file Sexual Orientation Not on file documented as of this encounter Last Filed Vital Signs Vital Sign Reading [...] Mass Index 27.12 02/15/2018 11:35 AM CDT documented in this encounter Patient Instructions * Patient Instructions* Huan Wilson APRN-CNP - 02/15/2018 11:46 AM CDT Urinary Tract Infection in Older Adults WHAT YOU NEED TO KNOW: A urinary tract infection (UTI) is caused by bacteria that get inside your urinary tract. Your urinary tract includes your kidneys, ureters, bladder, and urethra. Urine is made in your kidneys, and it flows from the ureters to the bladder. Urine leaves the bladder through the urethra. A UTI is morecommon in your lower urinary tract, which includes your bladder and urethra. DISCHARGE INSTRUCTIONS: Return to the emergency department if: ?? You are urinating very little or not at all. ?? You are vomiting. ?? You have a high fever with shaking chills. ?? You have side or back pain that gets worse. Contact your healthcare provider if: ?? You have a fever. ?? You are a woman and you have increased white or yellow discharge from your vagina. ?? You do not feel better after 2 days of taking antibiotics. ?? You have questions or concerns about your condition or care. Medicines: ?? Medicines help treat the bacterial infection or decrease pain and burning when you urinate. You may also need medicines to decrease the urge to urinate often. Your healthcare provider may recommend cranberry juice or cranberry supplements to help decrease your symptoms. ?? Take your medicine as directed. Contact your healthcare provider if you think your medicine is not helping or if you have side effects. Tell him or her if you are allergic to any medicine. Keep a list of the medicines, vitamins, and herbs you take. Include the amounts, and when and why you take them. Bring the list or the pill bottles to follow-up visits. Carry your medicine list with you in case of an emergency. Self-care: ?? Urinate when you feel the urge. Do not hold your urine because bacteria can grow in the bladder if urine stays in the bladder too long. It may be helpful to urinate at least every 3 to 4 hours. ?? Drink liquids as directed. Liquids can help flush bacteria from your urinary tract. Ask how muchliquid to drink each day and which liquids are best for you. You may need to drink more liquids than usual to help flush out the bacteria. Do not drink alcohol, caffeine, and citrus juices. These canirritate your bladder and increase your symptoms. ?? Apply heat on your abdomen for 20 to 30 minutes every 2 hours for as many days as directed. Heathelps decrease discomfort and pressure in your bladder. Prevent a UTI: ?? Women should wipe front to back after urinating or having a bowel movement. This may prevent germs from getting into the urinary tract. ?? Urinate after you have sex to flush away bacteria that can enter your urinary tract during sex. ?? Wear cotton underwear and clothes that fit loose. Tight pants and nylon underwear can trap moisture and cause bacteria to grow. Follow up with your healthcare provider as directed: Write down your questions so you remember to ask them during your visits. ?? 2017 [employer] Information is for End User's use only and may not be sold, redistributed or otherwise used for commercial purposes. All illustrations and images included in CareNotes?? are the copyrighted property of [employer]. or [employer]. The above information is an financial aids officer only. It is not intended as medical advice for individual conditions or treatments. Talk to your doctor, nurse or pharmacist before following any medical regimen to see if it is safe and effective for you. documented in this encounter Progress Notes * Huan Wilson APRN-CNP - 02/15/2018 11:46 AM CDT Subjective: Sahara Goldstein is a 62 y.o. female who complains of burning with urination, urgency, suprapubic pressure for 1 day. Patient complains of nothing else. Patient denies headache, back pain, vaginal discharge, cough, rhinitis, congestion, sorethroat, fever. There is not any concern of sexual abuse. Thereis not a history of trauma to the genital area. Patient does not have a history of recurrent UTI. Patient does not have a history of pyelonephritis. Patients PCP is Bruce Teresa MD Past Medical History: Diagnosis Date ??? High triglycerides ??? Hypertension Family History Problem Relation Age of Onset ??? CVA Mother ??? Hypertension Mother ??? Other - Cardiac Father [place] Current Outpatient Prescriptions Medication Sig Dispense Refill ??? fenofibrate (LOFIBRA) 160 MG tablet Take 160 mg by mouth once daily Take with largest meal of the day. ??? venlafaxine (EFFEXOR) 37.5 MG tablet Take 75 mg by mouth 3 times daily with meals ??? lisinopril (PRINIVIL; ZESTRIL) 10 MG tablet Take 10 mg by mouth once daily ??? sulfamethoxazole-trimethoprim (BACTRIM DS) 800-160 MG tablet Take 1 tablet by mouth 2 times daily for 5 days 10 tablet 0 No current facility-administered medications for this visit. No Known Allergies Social History Social History ??? Marital status: Spouse name: N/A ??? Number of children: N/A ??? Years of education: N/A Occupational History ??? Not on file. Social History Main Topics ??? Smoking status: Never Smoker ??? Smokeless tobacco: Never Used ??? Alcohol use Not on file ??? Drug use: Not on file ??? Sexual activity: Not on file Other Topics Concern ??? Not on file Social History Narrative ??? No narrative on file Review of Systems Pertinent items are noted in HPI Constitutional: Negative Eyes: Negative Respiratory: Negative Cardiovascular: Negative Gastrointestinal: Negative Genitourinary: burning with urination, urgency, suprapubic pressure for 1 day Musculoskeletal:Negative Neurological: Negative Objective: BP 128/82 (BP SITE: LEFT ARM, BP POSITION: SITTING, BP CUFF SIZE: 11) Pulse 63 Temp 98.6 ??F (37 ??C) (Oral) Resp 16 Ht 1.676 m (5' 6 ) Wt 76.2 kg (168 lb) SpO2 98% BMI 27.12 kg/m2 Exam: General appearance: alert, cooperative, no distress, oriented to person, place, and time, well appearing Head: normocephalic, without trauma Back: no CVA tenderness Lungs: breath sounds normal and symmetric; no rales or wheezes Heart: regular rhythm, normal S1 and S2, without murmurs, gallops or rubs Abdomen: soft without mass, non-tender, with normal bowel sounds Neurologic: mental status normal; alert and oriented X 3 Assessment: Encounter Diagnosis Name Primary? Acute cystitis with hematuria Yes Plan: 1. Maintain adequate hydration 2. Follow up if symptoms not improving, and prn. 3. Referral placed for PCP if none on file Your symptoms should begin to improve within a day of starting antibiotics. But you should finish all the antibiotic pills you get. Otherwise your infection might come back. Seek medical attention if you begin to run a fever, have lower back pain, and/or your symptoms worsen, or do not go away after treatment. Avoid caffeine Drink plenty of water through out the day Urinate after intercourse Urine sent to lab [facility] per pt request. Orders Placed This Encounter ??? CULTURE URINE ??? URINALYSIS AUTO - POINT OF CARE (AMB) STL ??? sulfamethoxazole-trimethoprim (BACTRIM DS) 800-160 MG tablet Sig: Take 1 tablet by mouth 2 times daily for 5 days Dispense: 10 tablet Refill: 0 Recent Results (from the past 24 hour(s)) URINALYSIS AUTO - POINT OF CARE (AMB) STL Collection Time: 02/15/18 11:47 AM Result Value Ref Range Clarity UA cloudy Color UA yellow Leukocyte UA 125+ Negative Nitrite UA negative Negative Urobilinogen UA 0.2 0.1 - 1.0 Protein UA 15+ Negative pH UA POCT 6.5 5.0 - 8.0 pH units Blood UA 50 Negative Specific [place] UA 1.010 1.002 - 1.030 Ketone UA negative Negative Bili UA negative Negative Glucose UA negative Negative Expiration Date 03 26 2019 Lot Number [id number] QC VERIFIED Yes Yes documented in this encounter Plan of Treatment Not on file documented as of this encounter Procedures Procedure Name Priority Date/Time Associated Diagnosis Comments CULTURE URINE Routine 02/15/2018 11:51 AM CDT Acute cystitis with hematuria URINALYSIS AUTO - POINT OF CARE (AMB) STL Routine 02/15/2018 11:47 AM CDT Acute cystitis with hematuria documented in this encounter Results * (ABNORMAL) CULTURE URINE (02/15/2018 11:51 [...] CDT 02/16/2018 Narrative Resulting Agency Comment [facility] [address] ??[facility] [id number] Huan Wilson APRN-HOOP DRIVING MACHINE OPERATOR HELPER LAB - MICROBIOLOG Y ORDERABLES [facility] [place] [address] [place] [address] * URINALYSIS AUTO - POINT OF CARE (AMB) STL (02/15/2018 11:47 AM CDT) Clarity UA POCT cloudy Color UA POCT yellow Leukocyte UA 125+ Negative Nitrite UA POCT negative Negative Urobilinogen UA 0.2 0.1 - 1.0 Protein UA POCT 15+ Negative pH UA 6.5 5.0 - 8.0 pH units Blood UA 50 Negative Specific [place] UA POCT 1.010 1.002 - 1.030 Ketone UA negative Negative Bilirubin UA POCT negative Negative Glucose UA negative Negative Expiration Date 03 26 2019 Lot # [id number] QC Verified Yes Yes Urine URINE / Unknown 02/15/2018 1 1:47 AM CDT Huan Wilson APRN-HOOP DRIVING MACHINE OPERATOR HELPER LAB - POINT OF CA RE ORDERABLES documented in this encounter Visit Diagnoses Diagnosis Acute cystitis with hematuria- Primary Acute cystitis documented in this encounter Care Teams Cuff Setter Lockstitch Relationship Specialty Start Date End Date Bruce Teresa MD [address] [place] [address] PCP - General Family Medicine 02/15/18 documented as of this encounter
== END 2024-08-17 08:19 | disposition home or self-care (01) ==
PROVIDERS: PCP Family Medicine; Visit Provider Nurse Practitioner
DX: C79.89 Secondary malignant neoplasm of other specified sites (principal); C80.1 Malignant (primary) neoplasm, unspecified; R10.31 Right lower quadrant pain
CPT/HCPCS: 71260; 74177; Q9967

== ENCOUNTER 2024-08-17 12:57 | Outpatient (CLI) | payer MEDICARE, OTHER, SELFPAY ==
[2024-08-17 13:17] LABS: Hematocrit 38.3 % (35.0-42.0); Hemoglobin 12.6 g/dL (11.7-13.8); Mean Corpuscular HGB Conc 32.9 g/dL (32-36); Mean Corpuscular Hemoglobin 29.6 pg (27.0-31.0); Mean Corpuscular Volume 90.1 fL (78.0-102.0); Mean Platelet Volume 11.6 fl (9.2-11.8); Platelet Count Result 317 K/mm3 (150-420); Red Blood Count 4.25 M/mm3 (4.20-5.40); Red Cell Distribution Width 12.5 % (11.6-14.4); White Blood Count 7.5 K/mm3 (4.8-10.8)
[2024-08-17 13:46] LABS: Alanine Aminotransferase 21 U/L (14-59); Alkaline Phosphatase 86 U/L (46-116); Anion Gap 10 mmol/L (4-12); Aspartate Amino Transferase 19 U/L (15-37); Bilirubin,Total 0.2 mg/dL (0.00-1.00); Blood Urea Nitrogen 18 mg/dL (7-18); Calcium 9.3 mg/dL (8.5-10.1); Carbon Dioxide 28 mmol/L (21-32); Chloride 103 mmol/L (98-108); Estimated Glomerular Filt Rate 47; Glucose 118 mg/dL (70-99); Osmolality Calculated 294 mOsm/kg (285-295); Potassium 4.2 mmol/L (3.5-5.1); Sodium 141 mmol/L (136-145); Total Protein 7.1 g/dL (6.4-8.2)
[2024-08-17 13:59] LABS: Bilirubin Direct < 0.1 mg/dL (0-0.2)
[2024-08-18 11:14] LABS: CA 19-9 276 U/mL (<34)
== END 2024-08-17 12:58 | disposition home or self-care (01) ==
LOC: CHSLAB 12:59
PROVIDERS: PCP Family Medicine; Visit Provider Nurse Practitioner
DX: C80.1 Malignant (primary) neoplasm, unspecified (principal); C79.89 Secondary malignant neoplasm of other specified sites; C78.7 Secondary malignant neoplasm of liver and intrahepatic bile duct; C25.9 Malignant neoplasm of pancreas, unspecified
CPT/HCPCS: 36415; 80048; 80076; 85027; 86301

== ENCOUNTER 2024-08-28 05:38 | Outpatient (CLI) | payer MEDICARE, OTHER, SELFPAY ==
--- NOTE | 2024-08-28 06:37 | SUR.OPER ---
Patient brought to GI Lab.0608 Instructions for patient undergoing Capsule Endoscopy reviewed with patient. Consent form signed. Sensor array applied to patient's abdomen and connected to recorded. Patient swallowed capsule with 12ozs of water infused with Simethicone. Patient instructed they may have clear liquids at 0815 this AM and eat or drink at 1015this AM. Patient instructed to return to GI Lab at 1500 this afternoon for removal of recording device and to call [phone] or to return to the hospital if any nausea and vomiting or abdominal pain is experienced.
--- NOTE | 2024-08-28 15:00 | SUR.OPER ---
Patient returned to the GI Lab at 1455 for recorder box removal. Patient voiced no complaints. States they have understanding of instructions. Patient left ambulatory. Dr. Andrade notified.
== END 2024-08-28 05:39 | disposition home or self-care (01) ==
PROVIDERS: PCP Family Medicine; Referring Provider Nurse Practitioner; Visit Provider Internal Medicine Gastroenterology
PROC: 0DJ07ZZ Inspection of Upper Intestinal Tract, Via Natural or Artificial Opening (ICD-10-PCS; CPT 91110; principal; 2024-08-28 07:00)
DX: C80.1 Malignant (primary) neoplasm, unspecified (principal); Z01.818 Encounter for other preprocedural examination
CPT/HCPCS: 91110

== ENCOUNTER 2025-06-19 14:18 | Outpatient (CLI) | payer MEDICARE, OTHER, SELFPAY ==
--- NOTE | ~2025-06-19 | DEXA_ITS ---
? Bone Density Report? Name:? johan munguia Patient ID:??? [id number] Age:?69 Sex:? Female Ethnicity:? White Date of : 1955 Indication: postmenopausal; screening for osteoporosis; height loss; cancer; Referring Provider: bronwyn RUIZ Study: Bone densitometry was performed. Exam Date: June 19, 2025 Accession number: [id number] Bone Density: Region? BMD??? T-score? Z-score?? Classification AP Spine(L1-L4)? 1.104??? 0.5?2.7? Normal Femoral Neck (Left)? 0.734?? -1.0? 0.8? Normal Total Hip (Left)? 0.968??? 0.2? 1.8? Normal Femoral Neck (Right)? 0.664?? -1.7? 0.2? Osteopenia Total Hip (Right)? 0.880?? -0.5? 1.0? Normal Femoral Neck Mean? 0.699?? -1.4? 0.5? Osteopenia Total Hip Mean? 0.924?? -0.1? 1.4? Normal World Health Organization criteria for BMD impression classify patients as: Normal (T-score at or above -1.0), Osteopenia (T-score between -1.0 and -2.5), or Osteoporosis (T-score at or below -2.5). 10-year Fracture Risk(1): Major Osteoporotic Fracture? 9.9% Hip Fracture? 1.6% Reported Risk Factors: [place] (), Neck BMD=0.664, BMI=22.8 (1) FRAX? Version 3.08. Fracture probability calculated for an untreated patient. Fracture probability may be lower if the patient has received treatment. Clinical Information Provided by Patient: Has the following medical conditions: Cancer Patient maximum height was 66.5 Menopause Age: 45 No regular weight bearing exercise Drinks caffeinated beverages Onset of menses at age 13 Number of children 2 Impression: The patient has low bone mass, based on the Right Femoral Neck T- score. Discussion: BONE DENSITY IS LOW AT ONE OR MORE SKELETAL SITES. This patient's lowest T-score is low at one or more skeletal sites.? It meets the World Health Organization's (WHO) criteria for ?low bone mass?? (T-score between -1.0 and -2.5).? The patient's 10-year risk of fracture as calculated by FRAX is less than the threshold where pharmacological therapy is recommended by the National Osteoporosis Foundation (NOF).? However, all treatment decisions require clinical judgment and consideration of individual patient factors, including patient preferences, comorbidities, previous drug use, risk factors not captured in the FRAX model (e.g., frailty, falls, vitamin D deficiency, increased bone turnover, interval significant decline in bone density) and possible under or overestimation of fracture risk by FRAX. The patient should follow a healthful lifestyle (good nutrition with adequate calcium and vitamin D, and appropriate weight-bearing exercise). Follow-Up: Consider repeating this study in 2 to 3 years to reassess this patient's status, or sooner if there is some new clinical indication. Reported by: DEANN on 06/19/2025 3:00:00 PM.
--- NOTE | ~2025-06-19 | MM_ITS ---
EXAMINATION: MM screening dannie BI w ray HISTORY: Screening TECHNIQUE: Craniocaudal and mediolateral oblique 3-D tomosynthesis images were obtained and synthetic 2-D images were generated. CAD analysis was submitted and interpreted. COMPARISON: Comparison to multiple prior studies sequentially, with oldest reviewed study dated , 03/03/2015 BREAST PARENCHYMAL COMPOSITION: There are scattered areas of fibroglandular density. FINDINGS: There is no evidence of suspicious mass, calcification, or architectural distortion to suggest malignancy in either breast. IMPRESSION: 1. No mammographic evidence of malignancy. 2. Recommend routine screening mammography in one year. BI-RADS Category 1: Negative Reviewed, dictated and finalized at location A. NICAL LEAD
--- OUTSIDE RECORDS SUMMARY | 2025-06-20 13:58 | XMS_ITS | Encounter Summary ---
Author Organization [facility] Address [address] [place] [address] Phone Care Team Providers Care Web Marketing Analyst Name Role Phone Heidi Tabares MD Primary Care Provider [phone] Jenny Rodriguez MD PhD Unavailable [phone] Encounter Details Date Type Department Care Team (Latest Contact Info) Description 08/03/2024 Orders Only [facility] Scanning, Provider Social History Tobacco Use Types Packs/Day Years Used Date Smoking Tobacco: Never Assessed Comments Unknown Sex and Gender Information Value Date Recorded Sex Assigned at Not on file Legal Sex Female 6:48 PM GROUP HOME PARAPROFESSIONAL Gender Identity Female 08/31/2024 4:07 PM GROUP HOME PARAPROFESSIONAL Sexual Orientation Straight 08/31/2024 4: 07 PM GROUP HOME PARAPROFESSIONAL documented as of this encounter Plan of Treatment Not on file documented as of this encounter Procedures Procedure Name Priority Date/Time Associated Diagnosis Comments SCAN - PATHOLOGY 08/03/2024 documented in this encounter Results * SCAN - PATHOLOGY (08/03/2024) us Provider Scanning Final Result documented in this encounter Visit Diagnoses Not on filedocumented in this encounter Additional Health Concerns Infection Onset Date Last Indicated Resolved Time Norovirus suspected 05/18/2025 05/18/2025 05/19/20 25 7:26 PM CDT Norovirus suspected 05/20/2025 05/20/2025 05/21/20 25 7:26 PM CDT documented as of this encounter Care Teams Web Marketing Analyst Relationship Specialty Start Date End Date Heidi Tabares MD PCP - General Family Medicine 08/29/24 Jenny Rodriguez MD PhD [address] [place] [address] Medical Oncologist Medical Oncology 09/26/24 documented as of this encounter
--- OUTSIDE RECORDS SUMMARY | 2025-06-20 13:58 | XMS_ITS | Clinical Summary ---
Author Organization [facility] 2 Address [address] [facility] [place] [address] Care Team Providers Care Division Sales Manager Name Role Phone Heidi Tabares MD Primary Care Provider [phone] Jenny Rodriguez MD PhD Unavailable [phone] Allergies Active Allergy Reactions Criticality Noted Date Comments Sulfa Nausea only Low 08/29/2024 Medications lisinopriL (PRINIVIL,ZESTR IL) 20 mg tablet Take 1 tablet (20 mg total) by mouth daily Active venlafaxine XR (EFFEXOR-XR) 150 mg 24 hr capsule 150 MG ORALLY EVERY MORNING 08/11/20 24 Active gemfibroziL (LOPID) 600 mg tablet Take 1 tablet (600 mg total) by mouth 2 (two) times a day 06/24/20 24 Active lidocaine-prilo nneka (EMLA) creamIndication s:Administratio n of Local Anesthesia Apply topically as needed for pain Apply one hour prior to port use 30 g 11 09/18/19 25 Active prochlorperazin e (Compazine) 10 mg tabletIndicatio ns:Cholangiocar cinoma (HCC) Take 1 tablet (10 mg total) by mouth every 6 (six) hours as needed for nausea or vomiting Use first for nausea 120 tablet 3 09/25/19 25 Active cetirizine (ZyrTEC) 10 mg chewable tablet Take 1 tablet (10 mg total) by mouth daily As needed. Active food supplemt, lactose-reduced 0.05 gram- 1.5 kcal/mL liquidIndicatio ns:Cholangiocar cinoma (HCC),Nutrition al deficiency Take 1 Carton by mouth 2 (two) times a day 2 09/28/19 25 Active senna-docusate (PERICOLACE) 8.6-50 mgIndications:C holangiocarcino ma (HCC),Dehydrati on,Other constipation Take 1 tablet by mouth 2 (two) times a day 60 tablet 2 10/01/19 25 Active busPIRone (BUSPAR) 15 mg tablet Take 1 tablet (15 mg total) by mouth daily 09/27/[address] (NexIUM) 20 mg capsule Take 1 capsule (20 mg total) by mouth daily before breakfast Active diphenhydrAMINE 25 mg capsule Take 1 tablet/capsule (25 mg total) by mouth nightly as needed for itching Per patient taking as needed for congestion. Active triamcinolone (KENALOG) 0.1 % creamIndication s:Cholangiocarc inoma (HCC),Rash Apply topically 2 (two) times a day 30 g 11/29/19 25 Active amLODIPine (NORVASC) 5 mg tablet Take 2 tablets (10 mg total) by mouth daily 12/01/19 25 Active dexAMETHasone (DECADRON) 4 mg tabletIndicatio ns:Cholangiocar cinoma (HCC) Take 2 tablets (8 mg) by mouth daily on Days 2, 3, 4 and 9, 10, 11 of each treatment cycle. 12 tablet 5 01/24/20 25 Active metoprolol XL (TOPROL-XL) 25 mg extended release tablet Take 0.5 tablets (12.5 mg total) by mouth daily 12.5 mg taken now Active pregabalin (LYRICA) 75 mg capsule Take 1 capsule (75 mg total) by mouth daily 30 capsule 05/20/20 25 Active ondansetron (ZOFRAN) 8 mg tabletIndicatio ns:Cholangiocar cinoma (HCC) Take 1 tablet (8 mg total) by mouth every 8 (eight) hours as needed for nausea or vomiting Use if prochlorperazine does not stop nausea 90 tablet 2 06/13/20 25 Active morphine ER (MS CONTIN) 15 mg 12 hr tabletIndicatio ns:Cholangiocar cinoma (HCC),Cancer related pain Take 1 tablet (15 mg total) by mouth every 12 (twelve) hours 60 tablet 06/13/20 25 2024 Active ondansetron (ZOFRAN) 8 mg tabletIndicatio ns:Cholangiocar cinoma (HCC) Take 1 tablet (8 mg total) by mouth every 8 (eight) hours as needed for nausea or vomiting Use if prochlorperazine does not stop nausea 24 tablet 3 09/25/19 25 2024 Discontin ued(Reord er) morphine ER (MS CONTIN) 15 mg 12 hr tabletIndicatio ns:Cholangiocar cinoma (HCC),Cancer related pain Take 1 tablet (15 mg total) by mouth every 12 (twelve) hours 60 tablet 05/02/20 25 2024 Discontin ued(Reord er) amoxicillin-cla vulanate (AUGMENTIN) 875-125 mg per tablet Take 1 tablet (875 mg of amoxicillin total) by mouth 2 (two) times a day for 5 days 10 tablet 06/05/20 25 2024 Active Problems Problem Noted Date Diagnosed Date CKD (chronic kidney disease) 05/19/2025 Assessment & Plan (05/19/2025 4:51 PM CDT): Baseline Cr 1.1 -1.5 At baseline, monitor Diarrhea 05/19/2025 Nausea and vomiting 05/18/2025 Assessment & Plan (05/19/2025 4:51 PM CDT): Unclear etiology, suspected opioid withdrawal from [facility] taper for cancer pain management Improved significant after antiemetics, imodium and IVF Patient wants to keep current taper MSER 15 mg every other day Video capsule 09/20/2024 no small bowel lesions Colonoscopy last year unrevealing F/u Infectious workup Symptoms management Advance diet as tolerated Assessment & Plan (05/18/2025 11:26 PM CDT): The patient's reduction in bowel regimen (senna) during her morphine taper and opioid withdrawal sxs on prior clinic visits both make opioid withdrawal symptoms the most likely etiology of her N/V/D. Other possibilities include pancreatic insufficience in the setting of malignancy, infectious (norovirus > ETEC >>> C. Diff) and SBO in the setting of malignancy, though SBO very unlikely given improvement of malignancy per prior imaging. Monitor: - I/O Eval: F/U: - 2x BCx, CBC, CMP, TSH - Norovirus PCR stool - Stool culture - Pancreatic elastase - Eval for signs of malnutrition such as electrolytes, replete PRN - Will get scheduled morphine tonight. If symptoms persist/worsen despite opioid therapy: - obtain stool osm/lytes, CDiff, other infectious workup HIV, CMV, HCV, HBV - consider Onc consult to discuss re-imaging (CT CAP, primary Onc considering re-imaging in June anyway) Treat: - 125mL/hr IV LR, re-eval in AM - clear liquid diet, increase to general if no more nausea/vomiting. - continue home zofran and compazine - If improves with tonight's morphine, increase morphine back to 15mg QDay and stay at that dose for a few more weeks, ultimately deferring to oncology before re-initiating taper. Opioid withdrawal 05/18/2025 Assessment & Plan (05/18/2025 11:26 PM CDT): The patient's reduction in bowel regimen (senna) during her morphine taper and opioid withdrawal sxs on prior clinic visits both make opioid withdrawal symptoms the most likely etiology of her N/V/D. Other possibilities include pancreatic insufficience in the setting of malignancy, infectious (norovirus > ETEC >>> C. Diff) and SBO in the setting of malignancy, though SBO very unlikely given improvement of malignancy per prior imaging. Monitor: - I/O Eval: F/U: - 2x BCx, CBC, CMP, TSH - Norovirus PCR stool - Stool culture - Pancreatic elastase - Eval for signs of malnutrition such as electrolytes, replete PRN - Will get scheduled morphine tonight. If symptoms persist/worsen despite opioid therapy: - obtain stool osm/lytes, CDiff, other infectious workup HIV, CMV, HCV, HBV - consider Onc consult to discuss re-imaging (CT CAP, primary Onc considering re-imaging in June anyway) Treat: - 125mL/hr IV LR, re-eval in AM - clear liquid diet, increase to general if no more nausea/vomiting. - continue home zofran and compazine - If improves with tonight's morphine, increase morphine back to 15mg QDay and stay at that dose for a few more weeks, ultimately deferring to oncology before re-initiating taper. Acute diarrhea 05/18/2025 Assessment & Plan (05/19/2025 4:51 PM CDT): Unclear etiology, suspected opioid withdrawal from [facility] taper for cancer pain management Improved significant after antiemetics, imodium and IVF Patient wants to keep current taper MSER 15 mg every other day Video capsule 09/20/2024 no small bowel lesions Colonoscopy last year unrevealing F/u Infectious workup Symptoms management Advance diet as tolerated Assessment & Plan (05/18/2025 11:26 PM CDT): The patient's reduction in bowel regimen (senna) during her morphine taper and opioid withdrawal sxs on prior clinic visits both make opioid withdrawal symptoms the most likely etiology of her N/V/D. Other possibilities include pancreatic insufficience in the setting of malignancy, infectious (norovirus > ETEC >>> C. Diff) and SBO in the setting of malignancy, though SBO very unlikely given improvement of malignancy per prior imaging. Monitor: - I/O Eval: F/U: - 2x BCx, CBC, CMP, TSH - Norovirus PCR stool - Stool culture - Pancreatic elastase - Eval for signs of malnutrition such as electrolytes, replete PRN - Will get scheduled morphine tonight. If symptoms persist/worsen despite opioid therapy: - obtain stool osm/lytes, CDiff, other infectious workup HIV, CMV, HCV, HBV - consider Onc consult to discuss re-imaging (CT CAP, primary Onc considering re-imaging in June anyway) Treat: - 125mL/hr IV LR, re-eval in AM - clear liquid diet, increase to general if no more nausea/vomiting. - continue home zofran and compazine - If improves with tonight's morphine, increase morphine back to 15mg QDay and stay at that dose for a few more weeks, ultimately deferring to oncology before re-initiating taper. HTN (hypertension) 05/18/2025 Assessment & Plan (05/19/2025 4:51 PM CDT): Continue amlodipine 10mg QDay and lisinopril 20mg QDay Assessment & Plan (05/18/2025 11:26 PM CDT): Continue amlodipine 10mg QDay and lisinopril 20mg QDay Anxiety 05/18/2025 Assessment & Plan (05/19/2025 4:51 PM CDT): Continue home effexor 150mg QAM and buspirone 15mg QDay Assessment & Plan (05/18/2025 11:26 PM CDT): Continue home effexor 150mg QAM and buspirone 15mg QDay HTN (hypertension) 11/28/2024 Dehydration 09/19/2024 Assessment & Plan (05/19/2025 4:51 PM CDT): Unclear etiology, suspected opioid withdrawal from [facility] taper for cancer pain management Improved significant after antiemetics, imodium and IVF Patient wants to keep current taper [facility] 15 mg every other day Video capsule 09/20/2024 no small bowel lesions Colonoscopy last year unrevealing F/u Infectious workup Symptoms management Advance diet as tolerated Assessment & Plan (05/18/2025 11:26 PM CDT): The patient's reduction in bowel regimen (senna) during her morphine taper and opioid withdrawal sxs on prior clinic visits both make opioid withdrawal symptoms the most likely etiology of her N/V/D. Other possibilities include pancreatic insufficience in the setting of malignancy, infectious (norovirus > ETEC >>> C. Diff) and SBO in the setting of malignancy, though SBO very unlikely given improvement of malignancy per prior imaging. Monitor: - I/O Eval: F/U: - 2x BCx, CBC, CMP, TSH - Norovirus PCR stool - Stool culture - Pancreatic elastase - Eval for signs of malnutrition such as electrolytes, replete PRN - Will get scheduled morphine tonight. If symptoms persist/worsen despite opioid therapy: - obtain stool osm/lytes, CDiff, other infectious workup HIV, CMV, HCV, HBV - consider Onc consult to discuss re-imaging (CT CAP, primary Onc considering re-imaging in June anyway) Treat: - 125mL/hr IV LR, re-eval in AM - clear liquid diet, increase to general if no more nausea/vomiting. - continue home zofran and compazine - If improves with tonight's morphine, increase morphine back to 15mg QDay and stay at that dose for a few more weeks, ultimately deferring to oncology before re-initiating taper. 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 08-13-24: US guided-biopsy of the right hepatic lobe mass was done Path:->>Adenocarcinoma unknown primary -CK7+ CK20+ CDX2+ Napsin negative CK5 Negative -03/07/25 CT, continued interval decrease in size of numerous hepatic metastases without evidence of disease progression within the chest, abdomen, pelvis. 09/26/24->03/13/25 Gemcitabine/cisplatin/Durvalumab ->followed by maintenance Durva C10 05/01/25 re-stage imaging planned before C12 -follows with Dr. Rodriguez Assessment & Plan (05/18/2025 11:26 PM CDT): Sxs unlikely due directly to the treatment of her malignancy or the malignancy itself, though if her symptoms persist and other workup is negative we will have to re-evaluate. Resolved Problems Problem Noted Date Diagnosed Date Resolved Date Primary cancer of unknown site 08/29/2024 09/14/2024 Encounters Date Type Department Care Team Description 06/13/2025 Telephone [facility] Medicine Oncology [address] [facility] [address] [place] [address] Vanessa Hearn RN 06/05/2025 12:52 PM CDT - 06/05/2025 11:59 PM CDT Hospital Encounter [facility] [address] [place] [address] Discharge Disposition: Discharge to home or self care 06/05/2025 10:49 AM CDT - 06/05/2025 11:59 PM CDT Hospital Encounter [facility] [place] [address] Charlene Henao, ANNE Nausea and vomiting, unspecified vomiting type (Primary Dx); Dehydration Discharge Disposition: Discharge to home or self care 06/04/2025 Telephone [facility] Medicine Oncology [address] [place] [phone] Magda Powell RN 05/29/2025 8:45 AM CDT Infusion [facility] at [address] [phone] Cholangiocarcinoma (HCC) (Primary Dx); Hypertension, unspecified type 05/29/2025 7:45 AM CDT Clinical Support [facility] at [address] [phone] Cholangiocarcinoma (HCC) 05/24/2025 Orders Only [facility] Medicine Oncology [address] [place] [phone] Jenny Rodriguez MD PhD 05/24/2025 Telephone [facility] Medicine Oncology [address] [place] [phone] Vanessa Hearn, ANNE 05/23/2025 Documentation [facility] Medicine Oncology [address] [place] [phone] Vanessa Hearn, RN 05/20/2025 1:27 PM CDT - 05/20/2025 11:59 PM CDT Hospital Encounter [address] [address] Diarrhea, unspecified type; Acute diarrhea; Cholangiocarcinoma (HCC) Discharge Disposition: Discharge to home or self care 05/20/2025 Telephone [facility] Medicine Oncology [address] [place] [phone] Vanessa Hearn, RN 05/20/2025 Telephone [facility] Medicine Oncology [address] [place] [phone] Alayna Mccullough RMA 05/20/2025 Orders Only [facility] Medicine Oncology [facility] Floor 5 [place] [address] Jenny Rodriguez MD PhD Diarrhea, unspecified type (Primary Dx); Acute diarrhea; Cholangiocarcinoma (HCC) 05/18/2025 10:04 PM CDT - 05/19/2025 5:36 PM CDT Hospital Encounter [facility] 1 [place] [address] Ad Castano MD Tang, Jia, MD Discharge Disposition: Discharge to home or self care 05/18/2025 Telephone [facility] Medicine Bone Marrow Transplant [address] [place] [address] Floor 6 [place] [phone] Lorie Posada NP 05/15/2025 Telephone [facility] Oncology [address] [place] [address] Floor 5 [place] [phone] Vanessa Hearn RN 05/15/2025 Telephone [facility] Oncology [address] [place] [address] [address] [place] [phone] Cari Gabriel CMA Med Management 05/01/2025 10:00 AM CDT Infusion [facility] at [address] [place] [phone] Cholangiocarcinoma (HCC) (Primary Dx); Hypertension, unspecified type 05/01/2025 9:30 AM CDT Office Visit [facility] Oncology [address] [place] [address] [address] [place] [phone] Lorie Guy NP Cholangiocarcinoma (HCC) (Primary Dx) 05/01/2025 8:30 AM CDT Clinical Support [facility] [place] at [address] [address] Cholangiocarcinoma (HCC) 04/03/2025 9:45 AM CDT Infusion [facility] at [address] [place] [address] Hypertension, unspecified type (Primary Dx); Cholangiocarcinoma (HCC) 04/03/2025 9:15 AM CDT Office Visit [facility] Medicine Oncology [address] [place] [address] [address] [place] [phone] Jenny Rodriguez MD PhD Cholangiocarcinoma (HCC) (Primary Dx); Hypertension, unspecified type 04/03/2025 8:15 AM CDT Clinical Support [facility] [address] [facility] [place] [phone] Cholangiocarcinoma (HCC); Hypertension, unspecified type 03/28/2025 Telephone [facility] Medicine Oncology [address] [place] [address] Floor 5 [place] [phone] Vanessa Hearn RN 03/22/2025 Orders Only [facility] Oncology [address] [place] [address] 5 [place] [phone] Jenny Rodriguez MD PhD Cholangiocarcinoma (HCC) (Primary Dx); Restless leg syndrome 03/22/2025 Orders Only [facility] Oncology [address] [place] [address] Floor 5 [place] [phone] Alejandro Haile MD PhD 03/22/2025 Telephone [facility] Oncology [address] [place] [address] 5 [place] [phone] Vanessa Hearn, RN from Last 3 Months Surgical History Surgery Date Site/Laterality Comments PORT PLACEMENT CHEST >5 YEARS 09/24/2024 N/A Medical History Medical History Date Comments Hypercholesteremia Hypertension Cancer (HCC) Social History Tobacco Use Types Packs/Day Years Used Date Smoking Tobacco: Never Smokeless Tobacco: Never Tobacco Cessation:Counseling Given: Not Answered Alcohol Use Standard Drinks/Week Comments Never 0 (1 standard drink = 0.6 oz pur e alcohol) Personal Safety Answer Date Recorded Have you ever been in or are you currently in a harmful physical or emotional relationship or is someone making you feel afraid or unsafe? 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 Last Filed Vital Signs Vital Sign Reading Time Taken Comments Blood Pressure 120/68 06/05/2025 10:58 AM CDT Pulse 103 06/05/2025 10:58 AM CDT Temperature 36.4 C (97.5 F) 06/05/2025 10:58 AM CDT Respiratory Rate 18 06/05/2025 10:58 AM CDT Oxygen Saturation 98% 06/05/2025 10:58 AM CDT Inhaled Oxygen Concentration - - Weight 60.8 kg (134 lb) 05/29/2025 8:31 AM CDT Height 162 cm (5' 3.78) 05/18/2025 10:30 PM CDT Body Mass Index 23.16 05/18/2025 10:30 PM CDT Plan of Treatment Health Maintenance Due Date Last Done Comments Breast Cancer Screening-Mammogram 1954 Colon Cancer Screening-Colonoscopy 1954 Depression Screening 1954 Hepatitis C Screening 1954 Osteoporosis Screening-Bone Density Scan 1954 Hepatitis B Screening 1972 Zoster Vaccine (1 of 2) 1973 Well Visit 65+ 2019 Pneumococcal vaccine 65+ (2 of 2 - PPSV23, PCV20, or PCV21) 07/10/2020 05/15/2020 DTaP/Tdap/Td Vaccine (2 - Td or Tdap) 10/05/2020 10/05/2010, 12/01/2000 Covid-19 Vaccine (2024-2 6 season) 2025 05/16/2024, 05/18/2023, 05/18/2023, Additional history exists Influenza Vaccine (#1) 2025 , 05/12/2023, 06/14/2022, Additional history exists Fall Risk Assessment 05/19/2026 05/19/2025 Medical Devices Implanted Type Area Cardiac Specialist Device Identifier Shelf Expiration Date Model / Serial / Lot [employer] Xcela Power Port 8fr [id number] - [id number] Implanted:Qty: 1 on 09/24/2024 at [facility] [employer] 04/04/2029 [id number] / / [id number] Procedures Procedure Name Priority Date/Time Associated Diagnosis Comments CT CHEST ABDOMEN PELVIS W CONTRAST ED Urgent/IP Urgent 06/05/2025 3:03 PM CDT EGFR Routine 06/05/2025 1:39 PM CDT CREATININE Routine 06/05/2025 1:39 PM CDT POC BLOOD GAS AND CHEMISTRIES, ARTERIAL Routine 06/05/2025 11:20 AM CDT EGFR STAT 06/05/2025 11:14 AM CDT DIFFERENTIAL AUTO STAT 06/05/2025 11: 14 AM CDT PHOSPHORUS STAT 06/05/2025 11:14 AM CDT MAGNESIUM STAT 06/05/2025 11:14 AM CDT COMPREHENSIVE METABOLIC PANEL STAT 06/05/2025 11:14 AM CDT CBC WITH AUTO DIFFERENTIAL STAT 06/05/2025 11:14 AM CDT EGFR STAT 05/29/2025 8:13 AM CDT Cholangiocarcinoma (HCC) DIFFERENTIAL AUTO STAT 05/29/2025 8:1 3 AM CDT Cholangiocarcinoma (HCC) THYROID FUNCTION CASCADE Routine 05/29/2025 8:13 AM CDT Cholangiocarcinoma (HCC) COMPREHENSIVE METABOLIC PANEL STAT 05/29/2025 8:13 AM CDT Cholangiocarcinoma (HCC) CBC WITH AUTO DIFFERENTIAL STAT 05/29/2025 8:13 AM CDT Cholangiocarcinoma (HCC) STOOL CULTURE Routine 05/20/2025 9:00 AM CDT Diarrhea, unspecified type Acute diarrhea Cholangiocarcinoma (HCC) URINALYSIS AND REFLEX TO MICROSCOPIC AND CULTURE Routine 05/19/2025 5:01 AM CDT EGFR Routine 05/19/2025 4:59 AM CDT DIFFERENTIAL AUTO Routine 05/19/2025 4:5 9 AM CDT PHOSPHORUS Routine 05/19/2025 4:59 AM CDT COMPREHENSIVE METABOLIC PANEL Routine 05/19/2025 4:59 AM CDT CBC WITH AUTO DIFFERENTIAL Routine 05/19/2025 4:59 AM CDT B CHECK SAMPLE STAT 05/19/2025 4:59 AM CDT EGFR Routine 05/18/2025 8:55 PM CDT DIFFERENTIAL AUTO Routine 05/18/2025 8:5 5 PM CDT TYPE AND SCREEN Timed 05/18/2025 8:55 PM CDT PREALBUMIN Routine 05/18/2025 8:55 PM CDT PHOSPHORUS Routine 05/18/2025 8:55 PM CDT MAGNESIUM Routine 05/18/2025 8:55 PM CDT TSH Routine 05/18/2025 8:55 PM CDT COMPREHENSIVE METABOLIC PANEL Routine 05/18/2025 8:55 PM CDT CBC WITH AUTO DIFFERENTIAL Routine 05/18/2025 8:55 PM CDT BLOOD CULTURE Routine 05/18/2025 8:55 PM CDT BLOOD CULTURE Routine 05/18/2025 8:55 PM CDT POC BLOOD GAS AND CHEMISTRIES, ARTERIAL Routine 05/18/2025 8:00 PM CDT EGFR STAT 05/01/2025 8:59 AM CDT Cholangiocarcinoma (HCC) DIFFERENTIAL AUTO STAT 05/01/2025 8:5 9 AM CDT Cholangiocarcinoma (HCC) CBC WITH AUTO DIFFERENTIAL STAT 05/01/2025 8:59 AM CDT Cholangiocarcinoma (HCC) COMPREHENSIVE METABOLIC PANEL STAT 05/01/2025 8:59 AM CDT Cholangiocarcinoma (HCC) THYROID FUNCTION CASCADE Routine 05/01/2025 8:59 AM CDT Cholangiocarcinoma (HCC) EGFR STAT 04/03/2025 8:06 AM CDT Cholangiocarcinoma (HCC) Hypertension, unspecified type DIFFERENTIAL AUTO STAT 04/03/2025 8:0 6 AM CDT Cholangiocarcinoma (HCC) Hypertension, unspecified type CORTISOL Routine 04/03/2025 8:06 AM CDT Cholangiocarcinoma (HCC) CBC WITH AUTO DIFFERENTIAL STAT 04/03/2025 8:06 AM CDT Cholangiocarcinoma (HCC) Hypertension, unspecified type COMPREHENSIVE METABOLIC PANEL STAT 04/03/2025 8:06 AM CDT Cholangiocarcinoma (HCC) Hypertension, unspecified type THYROID FUNCTION CASCADE Routine 04/03/2025 8:06 AM CDT Cholangiocarcinoma (HCC) Hypertension, unspecified type from Last 3 Months Results * CT Chest Abdomen Pelvis W Contrast (06/05/2025 3:03 PM CDT) Anatomical Region Laterality Modality Body N/A Computed Tomogra phy 06/05/2025 3:39 PM CDT Impressions 06/05/2025 3:55 PM CDT 1. Continued decrease in size in multiple hepatic metastases. 2. Interval development of scattered groundglass nodularity, primarily in the right middle and right lower lobes, favored to represent an infectious/inflammatory process. However, attention on follow-up imaging is recommended. Dictated by: Cecile Green M.D. The radiology attending physician has personally reviewed this study, and had reviewed and/or edited this written report and agrees with it. Electronically signed by: Wilda Tran MD Narrative 06/05/2025 3:55 PM CDT EXAMINATION: Computed tomography of the chest, abdomen and pelvis with intravenous contrast HISTORY: Sepsis, cholangiocarcinoma TECHNIQUE: Transaxial computed tomographic images of the chest, abdomen and pelvis were obtained with intravenous contrast according to the standard protocol after the uneventful administration of 69 mL Opti-Ray 350 intravenous contrast. COMPARISON: 03/07/2025 FINDINGS: Chest: No suspicious thoracic lymphadenopathy. Normal size heart. No pericardial effusion. Right internal jugular port catheter tip terminates in the right atrium. Interval development of scattered areas of groundglass opacities throughout the right lung, most prominent in the right middle and right lower lobes. Some areas are more nodular, for example, there is a focus of groundglass measuring 1.3 cm in the right lower lobe best seen on series 3 image 117. Unchanged peripheral reticulations, most prominent in the bilateral lower lobes and left upper lobe. Unchanged solid 2 mm right upper lobe pulmonary nodule. No pneumothorax or pleural effusion. Abdomen/Pelvis: Continued decrease in size of multiple hepatic metastases. For example, a segment 4 lesion measures 9 x 5 mm, previously measured 13 x 8 mm (series 2, image 140). Gallbladder fossa lesion measures 10 x 6 mm, previously measured 17 x 10 mm (series 2, image 158). Unchanged prominence of the left intrahepatic bile ducts and common bile duct, likely related to reservoir effect. The portal vasculature is patent. Gallbladder surgically absent. The spleen, adrenal glands, and pancreas are normal. The kidneys enhance symmetrically without hydronephrosis. The urinary bladder is normal. No suspicious adnexal lesion. The uterus is present. The small and large bowel are normal in course and caliber without focal wall thickening or dilatation. Atherosclerotic calcification of the abdominal aorta. No pneumoperitoneum or ascites. No suspicious abdominal or pelvic lymphadenopathy. No suspicious osseous lesion. Redemonstrated degenerative disease of the spine with sclerotic endplate changes at L3-L4. Procedure Note Wilda Tran MD - 06/05/2025 EXAMINATION: Computed tomography of the chest, abdomen and pelvis with intravenous contrast HISTORY: Sepsis, cholangiocarcinoma TECHNIQUE: Transaxial computed tomographic images of the chest, abdomen and pelvis were obtained with intravenous contrast according to the standard protocol after the uneventful administration of 69 mL Opti-Ray 350 intravenous contrast. COMPARISON: 03/07/2025 FINDINGS: Chest: No suspicious thoracic lymphadenopathy. Normal size heart. No pericardial effusion. Right internal jugular port catheter tip terminates in the right atrium. Interval development of scattered areas of groundglass opacities throughout the right lung, most prominent in the right middle and right lower lobes. Some areas are more nodular, for example, there is a focus of groundglass measuring 1.3 cm in the right lower lobe best seen on series 3 image 117. Unchanged peripheral reticulations, most prominent in the bilateral lower lobes and left upper lobe. Unchanged solid 2 mm right upper lobe pulmonary nodule. No pneumothorax or pleural effusion. Abdomen/Pelvis: Continued decrease in size of multiple hepatic metastases. For example, a segment 4 lesion measures 9 x 5 mm, previously measured 13 x 8 mm (series 2, image 140). Gallbladder fossa lesion measures 10 x 6 mm, previously measured 17 x 10 mm (series 2, image 158). Unchanged prominence of the left intrahepatic bile ducts and common bile duct, likely related to reservoir effect. The portal vasculature is patent. Gallbladder surgically absent. The spleen, adrenal glands, and pancreas are normal. The kidneys enhance symmetrically without hydronephrosis. The urinary bladder is normal. No suspicious adnexal lesion. The uterus is present. The small and large bowel are normal in course and caliber without focal wall thickening or dilatation. Atherosclerotic calcification of the abdominal aorta. No pneumoperitoneum or ascites. No suspicious abdominal or pelvic lymphadenopathy. No suspicious osseous lesion. Redemonstrated degenerative disease of the spine with sclerotic endplate changes at L3-L4. IMPRESSION: 1. Continued decrease in size in multiple hepatic metastases. 2. Interval development of scattered groundglass nodularity, primarily in the right middle and right lower lobes, favored to represent an infectious/inflammatory process. However, attention on follow-up imaging is recommended. Dictated by: Cecile Green M.D. The radiology attending physician has personally reviewed this study, and had reviewed and/or edited this written report and agrees with it. Electronically signed by: Wilda Tran MD us Boi Tapia [employer] SUPERVISOR IMG CT PROCEDURES Final Result * (ABNORMAL) eGFR (06/05/2025 1:39 PM CDT) eGFR 38(L) >=60 mL/min/1. 73 m2 Comment: Interpretive Data Reference Interval Normal >/= 90 mL/min/1.73m2 Mildly decreased* 60 - 89 mL/min/1.73m2 Mildly to moderately decreased 45 - 59 mL/min/1.73m2 Moderately to severely decreased 30 - 44 mL/min/1.73m2 Severely decreased 15 - 29 mL/min/1.73m2 Kidney Failure < 15 mL/min/1.73m2 *Relative to young adult level Estimated glomerular filtration rate is determined by the 2020 CKD-EPI equation recommended by the National Kidney Foundation (A Unifying Approach to GFR Estimation: Recommendations of the NKF-ASK Task Force on Reassessing the Inclusion of Race in Diagnosing Kidney Disease, JASN 2020). The CKD-EPI equation should not be used for patients with unstable renal function and has not been validated in children and those over 70. Current interpretive data was last reviewed 2021. Blood 06/05/2025 1:39 PM CDT 06/05/2025 1:52 PM CDT us Boi Tapia [employer] E[employer] SUPERVISOR LAB BLOOD ORDERABLES Final Resul t Performing Organization Address City/[facility]/ZIP Co de Phone Number [facility] Department [place] [address] * (ABNORMAL) Creatinine (06/05/2025 1:39 PM CDT) Creatinine 1.47(H) 0.60 - 1.10 mg/dL Blood 06/05/2025 1:39 PM CDT 06/05/2025 1:52 PM CDT us Boi Tapia [employer] E[employer] SUPERVISOR LAB BLOOD ORDERABLES Final Resul t Performing Organization Address City/[facility] Co de Phone Number [facility] Department [place] [address] * POC Blood Gas and Chemistries, Arterial - (06/05/2025 11:20 AM CDT) Lactate POC 1.5 0.7 - 2.0 mmol/L Blood 06/05/2025 11:2 0 AM CDT 06/05/2025 11:20 AM CDT us Charlene Henao [employer] POCT ORDERABLES - DEVICE Final Result Performing Organization Address [facility] Co de Phone Number [facility] [place] [address] * (ABNORMAL) eGFR (06/05/2025 11:14 AM CDT) Pathologist [facility] eGFR 36(L) >=60 mL/min/1. 73 m2 Comment: Interpretive Data Reference Interval Normal >/= 90 mL/min/1.73m2 Mildly decreased* 60 - 89 mL/min/1.73m2 Mildly to moderately decreased 45 - 59 mL/min/1.73m2 Moderately to severely decreased 30 - 44 mL/min/1.73m2 Severely decreased 15 - 29 mL/min/1.73m2 Kidney Failure < 15 mL/min/1.73m2 *Relative to young adult level Estimated glomerular filtration rate is determined by the 2020 CKD-EPI equation recommended by the National Kidney Foundation (A Unifying Approach to GFR Estimation: Recommendations of the NKF-ASK Task Force on Reassessing the Inclusion of Race in Diagnosing Kidney Disease, JASN 2020). The CKD-EPI equation should not be used for patients with unstable renal function and has not been validated in children and those over 70. Current interpretive data was last reviewed 2021. Blood 06/05/2025 11:1 4 AM CDT 06/05/2025 11:34 AM CDT us Stoney Tapia [employer] SUPERVISOR LAB BLOOD ORDERABLES Final Resul t [facility] Department [place] [address] * (ABNORMAL) Differential, auto (06/05/2025 11:14 AM CDT) Neutrophil abs 8.29(H) 1.50 - 6.50 K/cumm Imm gran abs 0.03 0.00 - 0.10 K/cumm [facility] Lymphocyte abs 0.87 0.80 - 3.30 K/cumm [facility] Monocyte abs 0.79 0.20 - 0.80 K/cumm [facility] Eosinophil abs 0.09 0.00 - 0.50 K/cumm [facility] Basophil abs 0.04 0.00 - 0.10 K/cumm [facility] Neutrophil pct 82.0 % [facility] Comment: Interpretive Data Percent cell count reference ranges are not reported, since discordance with absolute values may lead to misinterpretation of CBC data. Current Interpretive Data was last revised on 2017. Imm gran pct 0.3 % [facility] Comment: Interpretive Data Percent cell count reference ranges are not reported, since discordance with absolute values may lead to misinterpretation of CBC data. Current Interpretive Data was last revised on 2017. Lymphocyte pct 8.6 % [facility] Comment: Interpretive Data Percent cell count reference ranges are not reported, since discordance with absolute values may lead to misinterpretation of CBC data. Current Interpretive Data was last revised on 2017. Monocyte pct 7.8 % [facility] Comment: Interpretive Data Percent cell count reference ranges are not reported, since discordance with absolute values may lead to misinterpretation of CBC data. Current Interpretive Data was last revised on 2017. Eosinophil pct 0.9 % [facility] Comment: Interpretive Data Percent cell count reference ranges are not reported, since discordance with absolute values may lead to misinterpretation of CBC data. Current Interpretive Data was last revised on 2017. Basophil pct 0.4 % [facility] Comment: Interpretive Data Percent cell count reference ranges are not reported, since discordance with absolute values may lead to misinterpretation of CBC data. Current Interpretive Data was last revised on 2017. Blood 06/05/2025 11:1 4 AM CDT 06/05/2025 11:34 AM CDT us Boi Tapia [employer] SUPERVISOR LAB BLOOD ORDERABLES Final Resul t Performing Organization Address [facility] Co de Phone Number [facility] Department [place] [address] * (ABNORMAL) CBC with auto differential (06/05/2025 11:14 AM CDT) WBC 10.11(H) 3.80 - 9.90 K/cumm Hgb 10.7(L) 11.9 - 15.5 g/dL [facility] Hct 31.7(L) 35.6 - 45.5 % [facility] Plt 302 150 - 400 K/cumm [facility] MPV 12.2 9.1 - 12.3 fL [facility] RBC 3.43(L) 3.90 - 5.20 M/cumm [facility] MCV 92.4 81.3 - 96.4 fL [facility] MCH 31.2 27.1 - 33.3 pg [facility] MCHC 33.8 32.3 - 35.7 g/dL [facility] RDW CV 12.7 11.1 - 14.9 % [facility] RDW SD 43.2 35.7 - 48.1 fL [facility] NRBC abs 0.00 0.00 - 0.01 K/cumm [facility] Blood 06/05/2025 11:1 4 AM CDT 06/05/2025 11:34 AM CDT us Boi Tapia [employer] E[employer] SUPERVISOR LAB BLOOD ORDERABLES Final Resul t Performing Organization Address [facility]/ZIP Co de Phone Number [facility] Department [place] [address] * Phosphorus (06/05/2025 11:14 AM CDT) Phosphorus, pl 3.8 2.3 - 4.5 mg/dL Blood 06/05/2025 11:1 4 AM CDT 06/05/2025 11:34 AM CDT us Boi Tapia [employer] SUPERVISOR LAB BLOOD ORDERABLES Final Resul t Performing Organization Address City/[facility] Co de Phone Number [facility] [place] [address] * Magnesium (06/05/2025 11:14 AM CDT) Pathologist [facility] Magnesium 1.6 1.4 - 2.5 mg/dL Blood 06/05/2025 11:1 4 AM CDT 06/05/2025 11:34 AM CDT us Boi Tapia [employer] SUPERVISOR LAB BLOOD ORDERABLES Final Resul t Performing Organization Address [facility] de Phone Number [facility] [place] [address] * (ABNORMAL) Comprehensive metabolic panel (06/05/2025 11:14 AM CDT) Pathologist [facility] Sodium 137 135 - 145 mmol/L Potassium, pl 3.6 3.3 - 4.9 mmol/L [facility] Chloride 101 97 - 110 mmol/L [facility] CO2 25 22 - 32 mmol/L [facility] Anion gap 11 2 - 15 mmol/L [facility] BUN 18 6 - 25 mg/dL [facility] Creatinine 1.55(H) 0.60 - 1.10 mg/dL [facility] Glucose 100 70 - 199 mg/dL [facility] Comment: Interpretive Data Fasting glucose >/= 126 mg/dl is diagnostic for diabetes. Fasting is defined as no caloric intake for at least 8 hours. Fasting glucose between 100 mg/dl to 125 mg/dl is diagnostic of prediabetes. In a patient with classic symptoms of hyperglycemia or hyperglycemic crisis, a random glucose >/= 200 mg/dl is diagnostic for diabetes. In the absence of unequivocal hyperglycemia, results should be confirmed by repeat testing. The classification and Diagnosis of Diabetes Diabetes Care 202; 46: S19-S40. Current interpretive data was last revised 2022. Calcium 9.1 8.5 - 10.3 mg/dL [facility] Bilirubin, total 0.2 0.1 - 1.2 mg/dL [facility] Comment:Reviewed Protein, pl 7.1 6.5 - 8.5 g/dL [facility] Albumin 4.0 3.5 - 5.0 g/dL [facility] Alk phos 73 40 - 130 Units/L [facility] ALT 18 7 - 45 Units/L [facility] AST 29 10 - 45 Units/L [facility] Blood 06/05/2025 11:1 4 AM CDT 06/05/2025 11:34 AM CDT us Stoney Tapia S[employer] E[employer] SUPERVISOR LAB BLOOD ORDERABLES Final Resul t [facility] Department of Laboratories [place], [place] [id number] * (ABNORMAL) eGFR (05/29/2025 8:13 AM CDT) eGFR 41(L) >=60 mL/min/1. 73 m2 Comment: Interpretive Data Reference Interval Normal >/= 90 mL/min/1.73m2 Mildly decreased* 60 - 89 mL/min/1.73m2 Mildly to moderately decreased 45 - 59 mL/min/1.73m2 Moderately to severely decreased 30 - 44 mL/min/1.73m2 Severely decreased 15 - 29 mL/min/1.73m2 Kidney Failure < 15 mL/min/1.73m2 *Relative to young adult level Estimated glomerular filtration rate is determined by the 2020 CKD-EPI equation recommended by the National Kidney Foundation (A Unifying Approach to GFR Estimation: Recommendations of the NKF-ASK Task Force on Reassessing the Inclusion of Race in Diagnosing Kidney Disease, JASN 202). The CKD-EPI equation should not be used for patients with unstable renal function and has not been validated in children and those over 70. Current interpretive data was last reviewed 2021. Testing performed by: [facility], [address] [place] [address] Blood 05/29/2025 8:13 AM CDT 05/29/2025 8:45 AM CDT us Jenny Rodriguez MD PhD LAB BLOOD ORDERABLES Final Result [facility] [address] [facility]. [place] [address] * (ABNORMAL) Differential, auto (05/29/2025 8:13 AM CDT) Neutrophil abs 6.94(H) 1.50 - 6.50 K/cumm Comment:Testing performed by : [facility], [address] [place] [address] Imm gran abs 0.02 0.00 - 0.10 K/cumm [facility] Comment:Testing performed by : [place] [address], [address] [place] [address] Lymphocyte abs 1.05 0.80 - 3.30 K/cumm [facility] Comment:Testing performed by : [facility], [address] [place] [address] Monocyte abs 0.72 0.20 - 0.80 K/cumm [facility] Comment:Testing performed by : [place] [address], [address] [place] [address] Eosinophil abs 0.08 0.00 - 0.50 K/cumm [facility] Comment:Testing performed by : [facility], [address] [place] [address] Basophil abs 0.02 0.00 - 0.10 K/cumm [facility] Comment:Testing performed by : [facility], [address] [place] [address] Neutrophil pct 78.6 % [facility] Comment: Interpretive Data Percent cell count reference ranges are not reported, since discordance with absolute values may lead to misinterpretation of CBC data. Current Interpretive Data was last revised on 2017. Testing performed by: [facility], [facility], [address] [place] [address] Imm gran pct 0.2 % [facility] Comment: Interpretive Data Percent cell count reference ranges are not reported, since discordance with absolute values may lead to misinterpretation of CBC data. Current Interpretive Data was last revised on 2017. Testing performed by: [facility], [facility], [address] [place] [address] Lymphocyte pct 11.9 % [facility] Comment: Interpretive Data Percent cell count reference ranges are not reported, since discordance with absolute values may lead to misinterpretation of CBC data. Current Interpretive Data was last revised on 2017. Testing performed by: [facility], [facility], [address] [place] [address] Monocyte pct 8.2 % [facility] Comment: Interpretive Data Percent cell count reference ranges are not reported, since discordance with absolute values may lead to misinterpretation of CBC data. Current Interpretive Data was last revised on 2017. Testing performed by: [facility], [facility], [address] [place] [address] Eosinophil pct 0.9 % [facility] Comment: Interpretive Data Percent cell count reference ranges are not reported, since discordance with absolute values may lead to misinterpretation of CBC data. Current Interpretive Data was last revised on 2017. Testing performed by: [facility], [facility], [address] [place] [address] Basophil pct 0.2 % [facility] Comment: Interpretive Data Percent cell count reference ranges are not reported, since discordance with absolute values may lead to misinterpretation of CBC data. Current Interpretive Data was last revised on 2017. Testing performed by: [facility], [facility], [address] [place] [address] Blood 05/29/2025 8:13 AM CDT 05/29/2025 8:15 AM CDT Jenny Rodriguez MD PhD LAB BLOOD ORDERABLES Final Result Performing Organization Address City/[facility] Co de Phone Number [facility] [address] [facility]. [facility] [place] [address] * Thyroid Function [place] (05/29/2025 8:13 AM CDT) Pathologist [facility] TSH 1.59 0.30 - 4.20 mcIUnit/mL Comment:Testing performed by : [facility], [address] [place] [address] Blood 05/29/2025 8:13 AM CDT 05/29/2025 8:45 AM CDT Jenny Rodriguez MD PhD LAB BLOOD ORDERABLES Final Result Performing Organization Address [facility] de Phone Number CR[facility]SY [place] [address] [facility]. [facility] [place] [address] * (ABNORMAL) CBC with auto differential (05/29/2025 8:13 AM CDT) Pathologist [facility] WBC 8.83 3.80 - 9.90 K/cumm Comment:Testing performed by : [facility], [facility], [address] [place] [address] Hgb 10.8(L) 11.9 - 15.5 g/dL [facility] Comment:Testing performed by : [facility], [facility], [address] [place] [address] Hct 33.2(L) 35.6 - 45.5 % [facility] Comment:Testing performed by : [facility], [facility], [address] [place] [address] Plt 300 150 - 400 K/cumm [facility] Comment:Testing performed by : [facility] 2, [address] [place] [address] MPV 10.9 9.1 - 12.3 fL [facility] Comment:Testing performed by : [facility], [facility], [address] [place] [address] RBC 3.52(L) 3.90 - 5.20 M/cumm [facility] Comment:Testing performed by : [place] [address], [address] [place] [address] MCV 94.3 81.3 - 96.4 fL [facility] Comment:Testing performed by : [place] [address], [address], [place] [address] MCH 30.7 27.1 - 33.3 pg [facility] Comment:Testing performed by : [place] [address], [address] [place] [address] MCHC 32.5 32.3 - 35.7 g/dL [facility] Comment:Testing performed by : [place] [address], [address], [place] [address] RDW CV 12.4 11.1 - 14.9 % [facility] Comment:Testing performed by : [place] [address], [address], [place] [address] RDW SD 42.7 35.7 - 48.1 fL [facility] Comment:Testing performed by : [address], [place] [address] ANC Prelim 6.94(H) 1.50 - 6.50 K/cumm [facility] Comment: Interpretive Data The rapid ANC is a preliminary automated count and may vary from the final ANC (Neut Abs) reported in the WBC differential that follows. Current interpretive data was last revised 2024. Testing performed by: [facility] 2, [address], [place] [address] Blood 05/29/2025 8:13 AM CDT 05/29/2025 8:15 AM CDT us Jenny Rodriguez MD PhD LAB BLOOD ORDERABLES Final Result [facility] [address] [place] [address] * (ABNORMAL) Comprehensive metabolic panel (05/29/2025 8:13 AM CDT) Sodium 140 135 - 145 mmol/L Comment:Testing performed by : [facility], [address], [place] [address] Potassium, pl 4.0 3.3 - 4.9 mmol/L [facility] Comment:Testing performed by : [facility], [address], [place] [address] Chloride 104 97 - 110 mmol/L [facility] Comment:Testing performed by : [facility], [address], [place] [address] CO2 22 22 - 32 mmol/L [facility] Comment:Testing performed by : [facility], [address], [place] [address] Anion gap 14 2 - 15 mmol/L [facility] Comment:Testing performed by : [facility], [address], [place] [address] BUN 19 6 - 25 mg/dL [facility] Comment:Testing performed by : [facility], [address], [place] [address] Creatinine 1.39(H) 0.60 - 1.10 mg/dL [facility] Comment:Testing performed by : [facility], [address], [place] [address] Glucose 100 70 - 199 mg/dL [facility] Comment: Interpretive Data Fasting glucose >/= 126 mg/dl is diagnostic for diabetes. Fasting is defined as no caloric intake for at least 8 hours. Fasting glucose between 100 mg/dl to 125 mg/dl is diagnostic of prediabetes. In a patient with classic symptoms of hyperglycemia or hyperglycemic crisis, a random glucose >/= 200 mg/dl is diagnostic for diabetes. In the absence of unequivocal hyperglycemia, results should be confirmed by repeat testing. The classification and Diagnosis of Diabetes Diabetes Care 202; 46: S19-S40. Current interpretive data was last revised 2022. Testing performed by: [facility], [address], [place] [address] Calcium 9.7 8.5 - 10.3 mg/dL [facility] Comment:Testing performed by : [facility], [address], [place] [address] Bilirubin, total 0.2 0.1 - 1.2 mg/dL [facility] Comment:Testing performed by : [facility], [address], [place] [address] Protein, pl 7.0 6.5 - 8.5 g/dL [facility] Comment:Testing performed by : [facility], [address], [place] [address] Albumin 4.2 3.5 - 5.0 g/dL [facility] Comment:Testing performed by : [facility], [address], [place] [address] Alk phos 72 40 - 130 Units/L [facility] Comment:Testing performed by : [facility], [address], [place] [address] ALT 23 7 - 45 Units/L [facility] Comment:Testing performed by : [facility], [address], [place] [address] AST 34 10 - 45 Units/L [facility] Comment:Testing performed by : [facility], [address], [place] [address] Blood 05/29/2025 8:13 AM CDT 05/29/2025 8:45 AM CDT us Jenny Rodriguez MD PhD LAB BLOOD ORDERABLES Final Result [facility] [address] [place] [address] * Stool culture Stool Rectum (05/20/2025 9:00 AM CDT) Direct Specimen Exam Shiga Toxin Testing: Antigen detection assay for Shiga-toxin NEGATIVE for Shiga Toxin 1 and Shiga Toxin 2. Report Final Report: No growth of enteric bacterial pathogens [facility] Stool (Rectum) 05/20/2025 9: 00 AM CDT 05/20/2025 2:52 PM CDT Narrative [facility] - 05/25/2025 9:40 AM CDT Testing performed by [facility] Microbiology [facility] ([phone]). Routine stool cultures include procedures to detect Salmonella, Shigella, Edwardsiella, Aeromonas, Pleisiomonas, Campylobacter, Yersinia, E. coli O157, and Shiga-like toxins. Vibrio is cultured only upon special request. If Vibrio is suspected, please call the laboratory at [phone]. Interpretive data was last updated December 20, 2016. us Jenny Rodriguez MD PhD LAB MICROBIOLOGY - GENERAL ORDERABLES Final Result [facility] [place] [address] * Urinalysis reflex to microscopic and culture Urine, clean voided (05/19/2025 5:01 AM CDT) Color, ur Straw Yellow Clarity, ur Clear Clear [facility] Specific gravity, ur 1.011 1.003 - 1.030 [facility] pH, urine 5.5 [facility] Comment: Interpretive Data U rine pH is affected by diet, medications, systemic acid-base disturbances, and renal tubular function. pH may affect urinary stone formation. For example, urine pH below 6.0 may help reduce the tendency for calcium phosphate stones and pH greater than 6.0 may reduce the tendency for uric acid stone formation. Source: [facility] [employer] Current Interpretive Data was last revised on 2017 Protein, ur ql Negative Negative [facility] Glucose, ur ql Negative Negative [facility] Ketones, ur Negative Negative [facility] Bilirubin, ur Negative Negative [facility] Blood, ur Negative Negative [facility] Urobilinogen, ur <2.0 <2.0 mg/dL [facility] Nitrite, ur Negative Negative [facility] Leukocyte esterase, ur Negative Negative [facility] UA reflex comment Reflex conditions for microscopic UA and culture not met. [facility] Urine, clean voided 05/19/2025 5:01 AM CDT 05/19/2025 5:09 AM CDT us Ad Castano MD LAB MICROBIOLOGY - GENER AL ORDERABLES Final Result Performing Organization Address City/[facility]/ZIP Co de Phone Number [facility] Department [place] [address] * (ABNORMAL) eGFR (05/19/2025 4:59 AM CDT) eGFR 52(L) >=60 mL/min/1. 73 m2 Comment: Interpretive Data Reference Interval Normal >/= 90 mL/min/1.73m2 Mildly decreased* 60 - 89 mL/min/1.73m2 Mildly to moderately decreased 45 - 59 mL/min/1.73m2 Moderately to severely decreased 30 - 44 mL/min/1.73m2 Severely decreased 15 - 29 mL/min/1.73m2 Kidney Failure < 15 mL/min/1.73m2 *Relative to young adult level Estimated glomerular filtration rate is determined by the 2020 CKD-EPI equation recommended by the National Kidney Foundation (A Unifying Approach to GFR Estimation: Recommendations of the NKF-ASK Task Force on Reassessing the Inclusion of Race in Diagnosing Kidney Disease, JASN 2020). The CKD-EPI equation should not be used for patients with unstable renal function and has not been validated in children and those over 70. Current interpretive data was last reviewed 2021. Blood 05/19/2025 4:59 AM CDT 05/19/2025 5:14 AM CDT us Allan Rojas MD LAB BLOOD ORDERABLES Final Re sult [facility] [place] [address] * (ABNORMAL) Differential, auto (05/19/2025 4:59 AM CDT) Neutrophil abs 5.30 1.50 - 6.50 K/cumm Imm gran abs 0.03 0.00 - 0.10 K/cumm [facility] Lymphocyte abs 1.50 0.80 - 3.30 K/cumm [facility] Monocyte abs 0.86(H) 0.20 - 0.80 K/cumm [facility] Eosinophil abs 0.13 0.00 - 0.50 K/cumm [facility] Basophil abs 0.02 0.00 - 0.10 K/cumm [facility] Neutrophil pct 67.5 % [facility] Comment: Interpretive Data Percent cell count reference ranges are not reported, since discordance with absolute values may lead to misinterpretation of CBC data. Current Interpretive Data was last revised on 2017. Imm gran pct 0.4 % [facility] Comment: Interpretive Data Percent cell count reference ranges are not reported, since discordance with absolute values may lead to misinterpretation of CBC data. Current Interpretive Data was last revised on 2017. Lymphocyte pct 19.1 % [facility] Comment: Interpretive Data Percent cell count reference ranges are not reported, since discordance with absolute values may lead to misinterpretation of CBC data. Current Interpretive Data was last revised on 2017. Monocyte pct 11.0 % [facility] Comment: Interpretive Data Percent cell count reference ranges are not reported, since discordance with absolute values may lead to misinterpretation of CBC data. Current Interpretive Data was last revised on 2017. Eosinophil pct 1.7 % [facility] Comment: Interpretive Data Percent cell count reference ranges are not reported, since discordance with absolute values may lead to misinterpretation of CBC data. Current Interpretive Data was last revised on 2017. Basophil pct 0.3 % [facility] Comment: Interpretive Data Percent cell count reference ranges are not reported, since discordance with absolute values may lead to misinterpretation of CBC data. Current Interpretive Data was last revised on 2017. Blood 05/19/2025 4:59 AM CDT 05/19/2025 5:14 AM CDT us Allan Rojas MD LAB BLOOD ORDERABLES Final Re sult [facility] [place] [address] * Check Sample (05/19/2025 4:59 AM CDT) Pathologist [facility] ABO Rh A Positive [facility] HCLL OTHER 05/19/2025 4:59 AM CDT 05/19/2025 5:14 AM CDT us Jenny Rodriguez MD PhD LAB BLOOD ORDERABLES Final Result Performing Organization Address [facility] Co de Phone Number [facility] Department [place] [address] [facility] * (ABNORMAL) CBC with auto differential (05/19/2025 4:59 AM CDT) [facility] WBC 7.84 3.80 - 9.90 K/cumm Hgb 9.6(L) 11.9 - 15.5 g/dL [facility] Hct 29.1(L) 35.6 - 45.5 % [facility] Plt 252 150 - 400 K/cumm [facility] MPV 11.4 9.1 - 12.3 fL [facility] RBC 3.11(L) 3.90 - 5.20 M/cumm [facility] MCV 93.6 81.3 - 96.4 fL [facility] MCH 30.9 27.1 - 33.3 pg [facility] MCHC 33.0 32.3 - 35.7 g/dL [facility] RDW CV 12.6 11.1 - 14.9 % [facility] RDW SD 43.1 35.7 - 48.1 fL [facility] NRBC abs 0.00 0.00 - 0.01 K/cumm [facility] Blood 05/19/2025 4:59 AM CDT 05/19/2025 5:14 AM CDT Allan Rojas MD LAB BLOOD ORDERABLES Final Re sult [facility] Department [place] [address] * Phosphorus (05/19/2025 4:59 AM CDT) Pathologist [facility] Phosphorus, pl 3.2 2.3 - 4.5 mg/dL Blood 05/19/2025 4:59 AM CDT 05/19/2025 5:14 AM CDT Allan Rojas MD LAB BLOOD ORDERABLES Final Re sult Performing Organization Address [facility] de Phone Number [facility] Department [place] [address] * (ABNORMAL) Comprehensive metabolic panel (05/19/2025 4:59 AM CDT) [facility] Sodium 142 135 - 145 mmol/L Potassium, pl 3.5 3.3 - 4.9 mmol/L [facility] Chloride 110 97 - 110 mmol/L [facility] CO2 23 22 - 32 mmol/L [facility] Anion gap 9 2 - 15 mmol/L [facility] BUN 16 6 - 25 mg/dL [facility] Creatinine 1.13(H) 0.60 - 1.10 mg/dL [facility] Glucose 85 70 - 199 mg/dL [facility] Comment: Interpretive Data Fasting glucose >/= 126 mg/dl is diagnostic for diabetes. Fasting is defined as no caloric intake for at least 8 hours. Fasting glucose between 100 mg/dl to 125 mg/dl is diagnostic of prediabetes. In a patient with classic symptoms of hyperglycemia or hyperglycemic crisis, a random glucose >/= 200 mg/dl is diagnostic for diabetes. In the absence of unequivocal hyperglycemia, results should be confirmed by repeat testing. The classification and Diagnosis of Diabetes Diabetes Care 2022; 46: S19-S40. Current interpretive data was last revised 2022. Calcium 9.4 8.5 - 10.3 mg/dL [facility] Bilirubin, total <0.2 0.1 - 1.2 mg/dL [facility] Protein, pl 6.7 6.5 - 8.5 g/dL BANNERNER [facility] Albumin 3.7 3.5 - 5.0 g/dL BANN[facility]ER [facility] Alk phos 58 40 - 130 Units/L [facility] ALT 18 7 - 45 Units/L [facility] AST 24 10 - 45 Units/L BANN[facility]ER [facility] Blood 05/19/2025 4:59 AM CDT 05/19/2025 5:14 AM CDT Allan Rojas MD LAB BLOOD ORDERABLES Final Re sult [facility] Department [place] [address] * (ABNORMAL) eGFR (05/18/2025 8:55 PM CDT) eGFR 43(L) >=60 mL/min/1. 73 m2 Comment: Interpretive Data Reference Interval Normal >/= 90 mL/min/1.73m2 Mildly decreased* 60 - 89 mL/min/1.73m2 Mildly to moderately decreased 45 - 59 mL/min/1.73m2 Moderately to severely decreased 30 - 44 mL/min/1.73m2 Severely decreased 15 - 29 mL/min/1.73m2 Kidney Failure < 15 mL/min/1.73m2 *Relative to young adult level Estimated glomerular filtration rate is determined by the 2020 CKD-EPI equation recommended by the National Kidney Foundation (A Unifying Approach to GFR Estimation: Recommendations of the NKF-ASK Task Force on Reassessing the Inclusion of Race in Diagnosing Kidney Disease, JASN 2020). The CKD-EPI equation should not be used for patients with unstable renal function and has not been validated in children and those over 70. Current interpretive data was last reviewed 2021. Blood 05/18/2025 8:55 PM CDT 05/18/2025 9:10 PM CDT us Ad Castano MD LAB BLOOD ORDERABLES Fin al Result [facility] Department [place] [address] * (ABNORMAL) Differential, auto (05/18/2025 8:55 PM CDT) Pathologist [facility] Neutrophil abs 6.89(H) 1.50 - 6.50 K/cumm Imm gran abs 0.03 0.00 - 0.10 K/cumm [facility] Lymphocyte abs 1.38 0.80 - 3.30 K/cumm [facility] Monocyte abs 0.96(H) 0.20 - 0.80 K/cumm [facility] Eosinophil abs 0.08 0.00 - 0.50 K/cumm [facility] Basophil abs 0.04 0.00 - 0.10 K/cumm [facility] Neutrophil pct 73.5 % [facility] Comment: Interpretive Data Percent cell count reference ranges are not reported, since discordance with absolute values may lead to misinterpretation of CBC data. Current Interpretive Data was last revised on 2017. Imm gran pct 0.3 % [facility] Comment: Interpretive Data Percent cell count reference ranges are not reported, since discordance with absolute values may lead to misinterpretation of CBC data. Current Interpretive Data was last revised on 2017. Lymphocyte pct 14.7 % [facility] Comment: Interpretive Data Percent cell count reference ranges are not reported, since discordance with absolute values may lead to misinterpretation of CBC data. Current Interpretive Data was last revised on 2017. Monocyte pct 10.2 % [facility]ERMOU[facility] Comment: Interpretive Data Percent cell count reference ranges are not reported, since discordance with absolute values may lead to misinterpretation of CBC data. Current Interpretive Data was last revised on 2017. Eosinophil pct 0.9 % [facility] Comment: Interpretive Data Percent cell count reference ranges are not reported, since discordance with absolute values may lead to misinterpretation of CBC data. Current Interpretive Data was last revised on 2017. Basophil pct 0.4 % [facility] Comment: Interpretive Data Percent cell count reference ranges are not reported, since discordance with absolute values may lead to misinterpretation of CBC data. Current Interpretive Data was last revised on 2017. Blood 05/18/2025 8:55 PM CDT 05/18/2025 9:11 PM CDT Ad Castano MD LAB BLOOD ORDERABLES Fin al Result Performing Organization Address City/[facility]/ZIP Co de Phone Number [facility] Department [place] [address] * (ABNORMAL) CBC with auto differential (05/18/2025 8:55 PM CDT) WBC 9.38 3.80 - 9.90 K/cumm Hgb 10.0(L) 11.9 - 15.5 g/dL [facility] Hct 30.8(L) 35.6 - 45.5 % [facility] Plt 287 150 - 400 K/cumm [facility] MPV 12.5(H) 9.1 - 12.3 fL [facility] RBC 3.28(L) 3.90 - 5.20 M/cumm [facility] MCV 93.9 81.3 - 96.4 fL [facility] MCH 30.5 27.1 - 33.3 pg [facility] MCHC 32.5 32.3 - 35.7 g/dL [facility] RDW CV 12.7 11.1 - 14.9 % [facility] RDW SD 43.6 35.7 - 48.1 fL [facility] NRBC abs 0.00 0.00 - 0.01 K/cumm [facility] Blood 05/18/2025 8:55 PM CDT 05/18/2025 9:11 PM CDT Ad Castano MD LAB BLOOD ORDERABLES Fin al Result Performing Organization Address City/[facility]/ZIP Co de Phone Number [facility] Department [place] [address] * Blood culture Blood (05/18/2025 8:55 PM CDT) Report Final Report: No growth Blood 05/18/2025 8:55 PM CDT 05/18/2025 9:10 PM CDT Narrative [facility] - 05/23/2025 7:00 AM CDT Collection->Peripheral 1. Blood cultures are incubated for 4 days on a continuously monitored blood culture system. The first report of a negative culture is issued within 24 hours of receipt of the specimen in the laboratory. 2. Positive culture results are reported as soon as they are detected. 3. The most important factor for detection of microbes in the setting of bloodstream infection is the volume of blood submitted for culture. Failure to collect an optimal blood volume can result in false negative blood cultures. 4. For pediatric patients, the recommended blood volume to collect follows a weight based strategy. See the electronic test catalog for collection instructions. 5. For positive blood cultures, a rapid molecular test may be performed for organism identification using the latisha ePlex blood culture identification panel for gram positive (BCID-GP) and gram negative (BCID-GN) organisms. This nucleic acid amplification test detects microbial DNA in positive blood culture broth. This assay has been cleared by the [place] Food and Drug Administration and its performance characteristics have been verified by the [facility] Microbiology Laboratory. For questions about this culture, contact the Microbiology Laboratory at [phone]. Interpretive data was last revised on 24. us Ad Castano MD LAB MICROBIOLOGY - [facility] AL ORDERABLES Final Result [facility] Krishna [facility] [place] [address] * Blood culture Blood (05/18/2025 8:55 PM CDT) Report Final Report: No growth Blood 05/18/2025 8:55 PM CDT 05/18/2025 9:10 PM CDT Narrative CRISSY [facility] - 05/23/2025 7:00 AM CDT Collection->Peripheral 1. Blood cultures are incubated for 4 days on a continuously monitored blood culture system. The first report of a negative culture is issued within 24 hours of receipt of the specimen in the laboratory. 2. Positive culture results are reported as soon as they are detected. 3. The most important factor for detection of microbes in the setting of bloodstream infection is the volume of blood submitted for culture. Failure to collect an optimal blood volume can result in false negative blood cultures. 4. For pediatric patients, the recommended blood volume to collect follows a weight based strategy. See the electronic test catalog for collection instructions. 5. For positive blood cultures, a rapid molecular test may be performed for organism identification using the latisha ePlex blood culture identification panel for gram positive (BCID-GP) and gram negative (BCID-GN) organisms. This nucleic acid amplification test detects microbial DNA in positive blood culture broth. This assay has been cleared by the [place] Food and Drug Administration and its performance characteristics have been verified by the [facility] Microbiology Laboratory. For questions about this culture, contact the Microbiology Laboratory at [phone]. Interpretive data was last revised on 24. Ad Castano MD LAB MICROBIOLOGY - GENER AL ORDERABLES Final Result [facility] Department [place] [address] * Type and screen (05/18/2025 8:55 PM CDT) Dickson, indirect Negative ABO Rh A Positive [facility] Blood 05/18/2025 8:55 PM CDT 05/18/2025 9:32 PM CDT Narrative BANNERMOUNA [facility] - 05/18/2025 10:51 PM CDT Has the patient had Daratumumab or Isatuximab in the past 6 months?->Unknown Ad Castano MD LAB BLOOD BANK TEST ORDE RONAL Final Result [facility] [place] [address] * TSH (05/18/2025 8:55 PM CDT) Pathologist [facility] Thyroid Stimulating Hormone 1.24 0.30 - 4.20 mcIUnit/mL Blood 05/18/2025 8:55 PM CDT 05/18/2025 9:10 PM CDT Ad Castano MD LAB [place]LOOD [place] [address] * Prealbumin (05/18/2025 8:55 PM CDT) [facility] Prealbumin 23.0 20.0 - 40.0 mg/dL Comment:Repeated and Verifie d Blood 05/18/2025 8:55 PM CDT 05/18/2025 9:11 PM CDT Ad Castano MD LAB BLOOD ORDERABLES Fin al Result Performing Organization Address City/[facility] [place] [address] * Phosphorus (05/18/2025 8:55 PM CDT) [facility] Phosphorus, pl 3.5 2.3 - 4.5 mg/dL Blood 05/18/2025 8:55 PM CDT 05/18/2025 9:10 PM CDT Ad Castano MD LAB BLOOD ORDERABLES Fin al Result [facility] [place] [address] * Magnesium (05/18/2025 8:55 PM CDT) Pathologist [facility] Magnesium 1.5 1.4 - 2.5 mg/dL Blood 05/18/2025 8:55 PM CDT 05/18/2025 9:10 PM CDT us Ad Castano MD LAB BLOOD ORDERABLES Fin al Result [facility] Department [place] [address] * (ABNORMAL) Comprehensive metabolic panel (05/18/2025 8:55 PM CDT) [facility] Sodium 141 135 - 145 mmol/L Potassium, pl 3.8 3.3 - 4.9 mmol/L [facility] Chloride 107 97 - 110 mmol/L [facility] CO2 20(L) 22 - 32 mmol/L [facility] Anion gap 14 2 - 15 mmol/L [facility] BUN 19 6 - 25 mg/dL [facility] Creatinine 1.34(H) 0.60 - 1.10 mg/dL [facility] Glucose 99 70 - 199 mg/dL [facility] Comment: Interpretive Data Fasting glucose >/= 126 mg/dl is diagnostic for diabetes. Fasting is defined as no caloric intake for at least 8 hours. Fasting glucose between 100 mg/dl to 125 mg/dl is diagnostic of prediabetes. In a patient with classic symptoms of hyperglycemia or hyperglycemic crisis, a random glucose >/= 200 mg/dl is diagnostic for diabetes. In the absence of unequivocal hyperglycemia, results should be confirmed by repeat testing. The classification and Diagnosis of Diabetes Diabetes Care 202; 46: S19-S40. Current interpretive data was last revised 2022. Calcium 9.3 8.5 - 10.3 mg/dL [facility] Bilirubin, total <0.2 0.1 - 1.2 mg/dL [facility] Protein, pl 7.1 6.5 - 8.5 g/dL [facility] Albumin 4.4 3.5 - 5.0 g/dL [facility] Alk phos 58 40 - 130 Units/L [facility] ALT 17 7 - 45 Units/L [facility] AST 28 10 - 45 Units/L [facility] Blood 05/18/2025 8:55 PM CDT 05/18/2025 9:10 PM CDT us Ad Castano MD LAB BLOOD ORDERABLES Fin al Result [facility] [place] [address] * POC Blood Gas and Chemistries, Arterial - (05/18/2025 8:00 PM CDT) Lactate POC 1.1 0.7 - 2.0 mmol/L Blood 05/18/2025 8:00 PM CDT 05/18/2025 8:00 PM CDT Jenny Rodriguez MD PhD LAB POCT ORDERABLES - DEVIC E Final Result Performing Organization Address City/[facility] Co de Phone Number [facility] Department [place] [address] * (ABNORMAL) eGFR (05/01/2025 8:59 AM CDT) eGFR 51(L) >=60 mL/min/1. 73 m2 Comment: Interpretive Data Reference Interval Normal >/= 90 mL/min/1.73m2 Mildly decreased* 60 - 89 mL/min/1.73m2 Mildly to moderately decreased 45 - 59 mL/min/1.73m2 Moderately to severely decreased 30 - 44 mL/min/1.73m2 Severely decreased 15 - 29 mL/min/1.73m2 Kidney Failure < 15 mL/min/1.73m2 *Relative to young adult level Estimated glomerular filtration rate is determined by the 2020 CKD-EPI equation recommended by the National Kidney Foundation (A Unifying Approach to GFR Estimation: Recommendations of the NKF-ASK Task Force on Reassessing the Inclusion of Race in Diagnosing Kidney Disease, JASN 2020). The CKD-EPI equation should not be used for patients with unstable renal function and has not been validated in children and those over 70. Current interpretive data was last reviewed 2021. Testing performed by: [facility], [address] [place] [address] Blood 05/01/2025 8:59 AM CDT 05/01/2025 9:13 AM CDT us Jenny Rodriguez MD PhD LAB BLOOD ORDERABLES Final Result [facility] [address] [place] [address] * Differential, auto (05/01/2025 8:59 AM CDT) Neutrophil abs 4.83 1.50 - 6.50 K/cumm Comment:Testing performed by : [facility] [address], [address] [place] [address] Imm gran abs 0.04 0.00 - 0.10 K/cumm [facility] Comment:Testing performed by : [facility] [address], [address] [place] [address] Lymphocyte abs 0.86 0.80 - 3.30 K/cumm [facility] Comment:Testing performed by : [facility], [facility], [address] [place] [address] Monocyte abs 0.59 0.20 - 0.80 K/cumm [facility] Comment:Testing performed by : [facility] [address], [address] [place] [address] Eosinophil abs 0.14 0.00 - 0.50 K/cumm [facility] Comment:Testing performed by : [facility] [address], [address] [place] [address] Basophil abs 0.04 0.00 - 0.10 K/cumm [facility] Comment:Testing performed by : [facility] [address], [address] [place] [address] Neutrophil pct 74.3 % [facility] Comment: Interpretive Data Percent cell count reference ranges are not reported, since discordance with absolute values may lead to misinterpretation of CBC data. Current Interpretive Data was last revised on 2017. Testing performed by: [facility], [facility], [address] [place] [address] Imm gran pct 0.6 % [facility] Comment: Interpretive Data Percent cell count reference ranges are not reported, since discordance with absolute values may lead to misinterpretation of CBC data. Current Interpretive Data was last revised on 2017. Testing performed by: [facility], [facility], [address] [place] [address] Lymphocyte pct 13.2 % [facility] Comment: Interpretive Data Percent cell count reference ranges are not reported, since discordance with absolute values may lead to misinterpretation of CBC data. Current Interpretive Data was last revised on 2017. Testing performed by: [facility], [facility], [address] [place] [address] Monocyte pct 9.1 % [facility] Comment: Interpretive Data Percent cell count reference ranges are not reported, since discordance with absolute values may lead to misinterpretation of CBC data. Current Interpretive Data was last revised on 2017. Testing performed by: [facility] 2, [address] [place] [address] Eosinophil pct 2.2 % CERNER BJW[facility] Comment: Interpretive Data Percent cell count reference ranges are not reported, since discordance with absolute values may lead to misinterpretation of CBC data. Current Interpretive Data was last revised on 2017. Testing performed by: [facility], [facility], [address] [place] [address] Basophil pct 0.6 % CERNER BJW[facility] Comment: Interpretive Data Percent cell count reference ranges are not reported, since discordance with absolute values may lead to misinterpretation of CBC data. Current Interpretive Data was last revised on 2017. Testing performed by: [facility], [facility], [address] [place] [address] Blood 05/01/2025 8:59 AM CDT 05/01/2025 9:06 AM CDT Jenny Rodriguez MD PhD LAB BLOOD ORDERABLES Final Result Performing Organization Address City/[facility] Co de Phone Number [facility] [address] [facility]. Department [place] [address] * Thyroid Function Whatcom (05/01/2025 8:59 AM CDT) TSH 2.36 0.30 - 4.20 mcIUnit/mL Comment:Testing performed by : [facility], [address] [place] [address] Blood 05/01/2025 8:59 AM CDT 05/01/2025 9:13 AM CDT Jenny Rodriguez MD PhD LAB BLOOD ORDERABLES Final Result Performing Organization Address [facility] Co de Phone Number [facility] [address] [facility]. [place] [address] * (ABNORMAL) CBC with auto differential (05/01/2025 8:59 AM CDT) WBC 6.50 3.80 - 9.90 K/cumm Comment:Testing performed by : [facility], [facility], [address] [place] [address] Hgb 10.5(L) 11.9 - 15.5 g/dL CRISSY BJWCH Comment:Testing performed by : [facility], [facility], [address] [place] [address] Hct 32.8(L) 35.6 - 45.5 % CRISSY BJWCH Comment:Testing performed by : [facility], [facility], [address] [place] [address] Plt 273 150 - 400 K/cumm CERNER BJWCH Comment:Testing performed by : [facility], [facility], [address] [place] [address] MPV 10.6 9.1 - 12.3 fL CERNER BJWCH Comment:Testing performed by : [facility] 2, [address] [place] [address] RBC 3.42(L) 3.90 - 5.20 M/cumm CERMOUNA BJWCH Comment:Testing performed by : [place] [address], [address] [place] [address] MCV 95.9 81.3 - 96.4 fL CERMOUNA BJWCH Comment:Testing performed by : [place] [address], [address] [place] [address] MCH 30.7 27.1 - 33.3 pg CERMOUNA BJWCH Comment:Testing performed by : [place] [address], [address] [place] [address] MCHC 32.0(L) 32.3 - 35.7 g/dL CERMOUNA BJWCH Comment:Testing performed by : [place] [address], [address] [place] [address] RDW CV 12.5 11.1 - 14.9 % CERMOUNA BJWCH Comment:Testing performed by : [address] [place] [address] RDW SD 43.9 35.7 - 48.1 fL CRISSY BJWCH Comment:Testing performed by : [place] [address], [address] [place] [address] ANC Prelim 4.83 1.50 - 6.50 K/cumm CERMOUNA BJWCH Comment: Interpretive Data The rapid ANC is a preliminary automated count and may vary from the final ANC (Neut Abs) reported in the WBC differential that follows. Current interpretive data was last revised 2024. Testing performed by: [place] [address], [address] [place] [address] Blood 05/01/2025 8:59 AM CDT 05/01/2025 9:06 AM CDT us Jenny Rodriguez MD PhD LAB BLOOD ORDERABLES Final Result [facility] [address] Department [place] [address] * (ABNORMAL) Comprehensive metabolic panel (05/01/2025 8:59 AM CDT) Sodium 140 135 - 145 mmol/L Comment:Testing performed by : [facility], [address] [place] [address] Potassium, pl 4.2 3.3 - 4.9 mmol/L CERNER BJWCH Comment:Testing performed by : [facility], [address] [place] [address] Chloride 105 97 - 110 mmol/L CERNER BJWCH Comment:Testing performed by : [facility], [address], [place] [address] CO2 23 22 - 32 mmol/L CERNER BJWCH Comment:Testing performed by : [facility], [address] [place] [address] Anion gap 12 2 - 15 mmol/L CERNER BJWCH Comment:Testing performed by : [facility], [address] [place] [address] BUN 24 6 - 25 mg/dL CERNER BJWCH Comment:Testing performed by : [facility], [address], [place] [address] Creatinine 1.15(H) 0.60 - 1.10 mg/dL CERNER BJWCH Comment:Testing performed by : [facility], [address] [place] [address] Glucose 108 70 - 199 mg/dL CERNER BJWCH Comment: Interpretive Data Fasting glucose >/= 126 mg/dl is diagnostic for diabetes. Fasting is defined as no caloric intake for at least 8 hours. Fasting glucose between 100 mg/dl to 125 mg/dl is diagnostic of prediabetes. In a patient with classic symptoms of hyperglycemia or hyperglycemic crisis, a random glucose >/= 200 mg/dl is diagnostic for diabetes. In the absence of unequivocal hyperglycemia, results should be confirmed by repeat testing. The classification and Diagnosis of Diabetes Diabetes Care 2021; 46: S19-S40. Current interpretive data was last revised 2022. Testing performed by: [facility], [address], [place] [address] Calcium 9.2 8.5 - 10.3 mg/dL CERNER BJWCH Comment:Testing performed by : [facility], [address], [place] [address] Bilirubin, total 0.2 0.1 - 1.2 mg/dL CERNER BJWCH Comment:Testing performed by : [facility], [address], [place] [address] Protein, pl 6.8 6.5 - 8.5 g/dL CERNER BJWCH Comment:Testing performed by : [facility], [address], [place] [address] Albumin 4.1 3.5 - 5.0 g/dL CERNER BJWCH Comment:Testing performed by : [facility], [address], [place] [address] Alk phos 63 40 - 130 Units/L CERNER BJWCH Comment:Testing performed by : [facility], [address], [place] [address] ALT 11 7 - 45 Units/L CERNER BJWCH Comment:Testing performed by : [facility], [address], [place] [address] AST 20 10 - 45 Units/L CERNER BJWCH Comment:Testing performed by : [facility], [address], [place] [address] Blood 05/01/2025 8:59 AM CDT 05/01/2025 9:13 AM CDT Jenny Rodriguez MD PhD LAB BLOOD ORDERABLES Final Result [facility] [address] Department [place] [address] * (ABNORMAL) eGFR (04/03/2025 8:06 AM CDT) eGFR 47(L) >=60 mL/min/1. 73 m2 Comment: Interpretive Data Reference Interval Normal >/= 90 mL/min/1.73m2 Mildly decreased* 60 - 89 mL/min/1.73m2 Mildly to moderately decreased 45 - 59 mL/min/1.73m2 Moderately to severely decreased 30 - 44 mL/min/1.73m2 Severely decreased 15 - 29 mL/min/1.73m2 Kidney Failure < 15 mL/min/1.73m2 *Relative to young adult level Estimated glomerular filtration rate is determined by the 2020 CKD-EPI equation recommended by the National Kidney Foundation (A Unifying Approach to GFR Estimation: Recommendations of the NKF-ASK Task Force on Reassessing the Inclusion of Race in Diagnosing Kidney Disease, JASN 2020). The CKD-EPI equation should not be used for patients with unstable renal function and has not been validated in children and those over 70. Current interpretive data was last reviewed 2021. Testing performed by: [facility], [facility], [facility] [address] [place], [place] [address] Blood 04/03/2025 8:06 AM CDT 04/03/2025 8:19 AM CDT us Jenny Rodriguez MD PhD LAB BLOOD ORDERABLES Final Result Performing Organization Address City/[facility]/ZIP Co de Phone Number [facility] [address] [address]. [place] [address] * (ABNORMAL) Differential, auto (04/03/2025 8:06 AM CDT) Neutrophil abs 2.46 1.50 - 6.50 K/cumm Comment:Testing performed by : [facility], [facility], [address] [place] [address] Imm gran abs 0.02 0.00 - 0.10 K/cumm CERNER BJWCH Comment:Testing performed by : [facility], [facility], [address] [place] [address] Lymphocyte abs 0.79(L) 0.80 - 3.30 K/cumm CERNER BJWCH Comment:Testing performed by : [facility], [facility], [address] [place] [address] Monocyte abs 0.67 0.20 - 0.80 K/cumm CERNER BJWCH Comment:Testing performed by : [facility], [facility], [address] [place] [address] Eosinophil abs 0.07 0.00 - 0.50 K/cumm CERNER BJWCH Comment:Testing performed by : [facility], [facility], [address], [place] [address] Basophil abs 0.03 0.00 - 0.10 K/cumm CERNER BJWCH Comment:Testing performed by : [facility], [facility], [address] [place] [address] Neutrophil pct 60.9 % CERNER BJWCH Comment: Interpretive Data Percent cell count reference ranges are not reported, since discordance with absolute values may lead to misinterpretation of CBC data. Current Interpretive Data was last revised on 2017. Testing performed by: [facility] 2, [address] [place] [address] Imm gran pct 0.5 % CERNER BJWCH Comment: Interpretive Data Percent cell count reference ranges are not reported, since discordance with absolute values may lead to misinterpretation of CBC data. Current Interpretive Data was last revised on 2017. Testing performed by: [facility] 2, [address] [place] [address] Lymphocyte pct 19.6 % CERNER BJWCH Comment: Interpretive Data Percent cell count reference ranges are not reported, since discordance with absolute values may lead to misinterpretation of CBC data. Current Interpretive Data was last revised on 2017. Testing performed by: [facility] 2, [address] [place] [address] Monocyte pct 16.6 % CRISSY CORNELL Comment: Interpretive Data Percent cell count reference ranges are not reported, since discordance with absolute values may lead to misinterpretation of CBC data. Current Interpretive Data was last revised on 2017. Testing performed by: [facility], [facility], [address] [place] [address] Eosinophil pct 1.7 % CRISSY CORNELL Comment: Interpretive Data Percent cell count reference ranges are not reported, since discordance with absolute values may lead to misinterpretation of CBC data. Current Interpretive Data was last revised on 2017. Testing performed by: [facility], [facility], [address] [place] [address] Basophil pct 0.7 % CRISSY CORNELL Comment: Interpretive Data Percent cell count reference ranges are not reported, since discordance with absolute values may lead to misinterpretation of CBC data. Current Interpretive Data was last revised on 2017. Testing performed by: [facility], [facility], [address] [place] [address] Blood 04/03/2025 8:06 AM CDT 04/03/2025 8:11 AM CDT Jenny Rodriguez MD PhD LAB BLOOD ORDERABLES Final Result [facility] [address] [address] [place] [address] * Thyroid Function Whatcom (04/03/2025 8:06 AM CDT) TSH 1.31 0.30 - 4.20 mcIUnit/mL Comment:Testing performed by : [facility], [address] [place] [address] Blood 04/03/2025 8:06 AM CDT 04/03/2025 8:19 AM CDT us Jenny Rodriguez MD PhD LAB BLOOD ORDERABLES Edited Result - Final CRISSY [facility] [address] [address] [facility]. Department of Laboratories [place], [place] [id number] * (ABNORMAL) CBC with auto differential (04/03/2025 8:06 AM CDT) WBC 4.04 3.80 - 9.90 K/cumm Comment:Testing performed by : [place] [address], [address] [place] [address] Hgb 10.3(L) 11.9 - 15.5 g/dL CERMOUNA BJWCH Comment:Testing performed by : [place] [address] [place] [address] Hct 31.2(L) 35.6 - 45.5 % CRISSY RDAKEWCH Comment:Testing performed by : [place] [address], [address] [place] [address] Plt 273 150 - 400 K/cumm CRISSY DRAKEW Comment:Testing performed by : [place] [address] [place] [address] MPV 10.8 9.1 - 12.3 fL CRISSY BJWCH Comment:Testing performed by : [address] [place] [address] RBC 3.19(L) 3.90 - 5.20 M/cumm CRISSY BJWCH Comment:Testing performed by : [place] [address], [address] [place] [address] MCV 97.8(H) 81.3 - 96.4 fL CERMOUNA BJWCH Comment:Testing performed by : [place] [address], [address] [place] [address] MCH 32.3 27.1 - 33.3 pg CERMUONA BJWCH Comment:Testing performed by : [place] [address], [address] [place] [address] MCHC 33.0 32.3 - 35.7 g/dL CRISSY CORNELL Comment:Testing performed by : [facility], [facility], [address] [place] [address] RDW CV 13.4 11.1 - 14.9 % CRISSY CORNELL Comment:Testing performed by : [facility], [facility], [address] [place] [address] RDW SD 48.0 35.7 - 48.1 fL CRISSY CORNELL Comment:Testing performed by : [facility], [facility], [address] [place] [address] ANC Prelim 2.46 1.50 - 6.50 K/cumm CRISSY CORNELL Comment: Interpretive Data The rapid ANC is a preliminary automated count and may vary from the final ANC (Neut Abs) reported in the WBC differential that follows. Current interpretive data was last revised 2024. Testing performed by: [facility], [facility], [address] [place] [address] Blood 04/03/2025 8:06 AM CDT 04/03/2025 8:11 AM CDT us Jenny Rodriguez MD PhD LAB BLOOD ORDERABLES Final Result Performing Organization Address [facility]/State/ZIP Co de Phone Number CRISSY [facility] [address] [facility] Department [place] [address] * Cortisol (04/03/2025 8:06 AM CDT) Cortisol 16.6 4.8 - 19.5 mcg/dl Comment:Testing performed by : [facility], [facility], [place]., [address] Blood 04/03/2025 8:06 AM CDT 04/03/2025 1:36 PM CDT Jenny Rodriguez MD PhD LAB BLOOD ORDERABLES Final Result [facility] [address] [address] [place] [address] * (ABNORMAL) Comprehensive metabolic panel (04/03/2025 8:06 AM CDT) Sodium 141 135 - 145 mmol/L Comment:Testing performed by : [facility], [address], [place] [address] Potassium, pl 4.7 3.3 - 4.9 mmol/L CERNER BJWCH Comment:Testing performed by : [facility], [address], [place] [address] Chloride 107 97 - 110 mmol/L CERNER BJWCH Comment:Testing performed by : [facility], [address], [place] [address] CO2 22 22 - 32 mmol/L CERNER BJWCH Comment:Testing performed by : [facility], [address], [place] [address] Anion gap 12 2 - 15 mmol/L CERNER BJWCH Comment:Testing performed by : [facility], [address], [place] [address] BUN 25 6 - 25 mg/dL CERNER BJWCH Comment:Testing performed by : [facility], [address], [place] [address] Creatinine 1.23(H) 0.60 - 1.10 mg/dL CERNER BJWCH Comment:Testing performed by : [facility], [address], [place] [address] Glucose 99 70 - 199 mg/dL CERNER BJWCH Comment: Interpretive Data Fasting glucose >/= 126 mg/dl is diagnostic for diabetes. Fasting is defined as no caloric intake for at least 8 hours. Fasting glucose between 100 mg/dl to 125 mg/dl is diagnostic of prediabetes. In a patient with classic symptoms of hyperglycemia or hyperglycemic crisis, a random glucose >/= 200 mg/dl is diagnostic for diabetes. In the absence of unequivocal hyperglycemia, results should be confirmed by repeat testing. The classification and Diagnosis of Diabetes Diabetes Care 202; 46: S19-S40. Current interpretive data was last revised 2022. Testing performed by: [facility], [address], [place] [address] Calcium 9.4 8.5 - 10.3 mg/dL CERNER BJWCH Comment:Testing performed by : [facility], [address], [place] [address] Bilirubin, total 0.2 0.1 - 1.2 mg/dL CERNER BJWCH Comment:Testing performed by : [facility], [address], [place] [address] Protein, pl 6.6 6.5 - 8.5 g/dL CERNER BJWCH Comment:Testing performed by : [facility], [address], [place] [address] Albumin 4.2 3.5 - 5.0 g/dL CERNER BJWCH Comment:Testing performed by : [facility], [address], [place] [address] Alk phos 58 40 - 130 Units/L CERNER BJWCH Comment:Testing performed by : [facility], [address], [place] [address] ALT 11 7 - 45 Units/L CERNER BJWCH Comment:Testing performed by : [facility], [address], [place] [address] AST 22 10 - 45 Units/L CERNER BJWCH Comment:Testing performed by : [facility], [address], [place] [address] Blood 04/03/2025 8:06 AM CDT 04/03/2025 8:19 AM CDT us Jenny Rodriguez MD PhD LAB BLOOD ORDERABLES Edited Result - Final [facility] [address] [place] [address] from Last 3 Months Insurance MEDIC[employer] [place] [employer] [place] [employer] Advance Directives For more information, please contact: [phone] * Full Code (Latest Code Status on File) Date Activated Date Inactivated Comments 05/18/2025 10:29 PM 05/19/2025 9:37 PM * Full Code Date Activated Date Inactivated Comments 09/24/2024 12:16 PM 09/25/2024 4:54 AM Care Teams Division Sales Manager Relationship Specialty Start Date End Date Heidi Tabares MD PCP - General Family Medicine 08/29/24 Jenny Rodriguez MD PhD [address] [place] [address] Medical Oncologist Medical Oncology 09/26/24
--- OUTSIDE RECORDS SUMMARY | 2025-06-20 13:58 | XMS_ITS | Encounter Summary ---
Author Organization [facility] Address [address] [place] [address] Phone Care Team Providers Care Model Photographers' Name Role Phone Heidi Tabares MD Primary Care Provider [phone] Jenny Rodriguez MD PhD Unavailable [phone] Encounter Details Date Type Department Care Team (Latest Contact Info) Description 08/13/2024 Orders Only [facility] Scanning, Provider Social History Tobacco Use Types Packs/Day Years Used Date Smoking Tobacco: Never Assessed Comments Unknown Sex and Gender Information Value Date Recorded Sex Assigned at Not on file Legal Sex Female 6:48 PM STARCHER AND TENTER RANGE FEEDER Gender Identity Female 08/31/2024 4:07 PM STARCHER AND TENTER RANGE FEEDER Sexual Orientation Straight 08/31/2024 4: 07 PM STARCHER AND TENTER RANGE FEEDER documented as of this encounter Plan of Treatment Not on file documented as of this encounter Procedures Procedure Name Priority Date/Time Associated Diagnosis Comments SCAN - PATHOLOGY 08/13/2024 documented in this encounter Results * SCAN - PATHOLOGY (08/13/2024) us Provider Scanning Edited Result - Final documented in this encounter Visit Diagnoses Not on filedocumented in this encounter Additional Health Concerns Infection Onset Date Last Indicated Resolved Time Norovirus suspected 05/18/2025 05/18/2025 05/19/20 25 7:26 PM CDT Norovirus suspected 05/20/2025 05/20/2025 05/21/20 25 7:26 PM CDT documented as of this encounter Care Teams Model Photographers' Relationship Specialty Start Date End Date Heidi Tabares MD PCP - General Family Medicine 08/29/24 Jenny Rodriguez MD PhD [address] [place] [address] Medical Oncologist Medical Oncology 09/26/24 documented as of this encounter
--- OUTSIDE RECORDS SUMMARY | 2025-06-20 13:58 | XMS_ITS | Encounter Summary ---
Author Organization [facility] Address [address] [place] [address] Phone Care Team Providers Care Food Preparation Kitchen Aide Name Role Phone Heidi Tabares MD Primary Care Provider [phone] Jenny Rodriguez MD PhD Unavailable Encounter Details Date Type Department Care Team (Latest Contact Info) Description 08/17/2024 Orders Only [facility] Scanning, Provider Social History Tobacco Use Types Packs/Day Years Used Date Smoking Tobacco: Never Assessed Comments Unknown Sex and Gender Information Value Date Recorded Sex Assigned at Not on file Legal Sex Female 6:48 PM CERTIFIED ENERGY MANAGER Gender Identity Female 08/31/2024 4:07 PM CERTIFIED ENERGY MANAGER Sexual Orientation Straight 08/31/2024 4: 07 PM CERTIFIED ENERGY MANAGER documented as of this encounter Plan of Treatment Not on file documented as of this encounter Procedures Procedure Name Priority Date/Time Associated Diagnosis Comments SCAN - RADIOLOGY/IMAGING 08/17/2024 documented in this encounter Results * SCAN - RADIOLOGY/IMAGING (08/17/2024) Anatomical Region Laterality Modality Other us Provider Scanning Final Result documented in this encounter Visit Diagnoses Not on filedocumented in this encounter Additional Health Concerns Infection Onset Date Last Indicated Resolved Time Norovirus suspected 05/18/2025 05/18/2025 05/19/20 25 7:26 PM CDT Norovirus suspected 05/20/2025 05/20/2025 05/21/20 25 7:26 PM CDT documented as of this encounter Care Teams Food Preparation Kitchen Aide Relationship Specialty Start Date End Date Heidi Tabares MD PCP - General Family Medicine 08/29/24 Jenny Rodriguez MD PhD [address] [place] [address] Medical Oncologist Medical Oncology 09/26/24 documented as of this encounter
--- OUTSIDE RECORDS SUMMARY | 2025-06-20 13:58 | XMS_ITS | Encounter Summary ---
Author Organization [facility] Address [address] [place] [address] Phone Care Team Providers Care Telecommunications Equipment Installer Name Role Phone Heidi Tabares MD Primary Care Provider [phone] Jenny Rodriguez MD PhD Unavailable Encounter Details Date Type Department Care Team (Latest Contact Info) Description 07/15/2024 Orders Only [facility] Scanning, Provider Social History Tobacco Use Types Packs/Day Years Used Date Smoking Tobacco: Never Assessed Comments Unknown Sex and Gender Information Value Date Recorded Sex Assigned at Not on file Legal Sex Female 6:48 PM FIGURE MODEL Gender Identity Female 08/31/2024 4:07 PM FIGURE MODEL Sexual Orientation Straight 08/31/2024 4: 07 PM FIGURE MODEL documented as of this encounter Plan of Treatment Not on file documented as of this encounter Procedures Procedure Name Priority Date/Time Associated Diagnosis Comments SCAN - RADIOLOGY/IMAGING 07/15/2024 documented in this encounter Results * SCAN - RADIOLOGY/IMAGING (07/15/2024) Anatomical Region Laterality Modality Other us Provider Scanning Final Result documented in this encounter Visit Diagnoses Not on filedocumented in this encounter Additional Health Concerns Infection Onset Date Last Indicated Resolved Time Norovirus suspected 05/18/2025 05/18/2025 05/19/20 25 7:26 PM CDT Norovirus suspected 05/20/2025 05/20/2025 05/21/20 25 7:26 PM CDT documented as of this encounter Care Teams Telecommunications Equipment Installer Relationship Specialty Start Date End Date Heidi Tabares MD PCP - General Family Medicine 08/29/24 Jenny Rodriguez MD PhD [address] [place] [address] Medical Oncologist Medical Oncology 09/26/24 documented as of this encounter
--- OUTSIDE RECORDS SUMMARY | 2025-06-20 13:58 | XMS_ITS ---
Author Organization [facility] [address] Address [address] [place] [address] Care Team Providers Care Crown And Bridge Technician Name Role Phone Heidi Tabares MD Primary Care Provider [phone] Jenny Rodriguez MD PhD Unavailable [phone] Active Problems Problem Noted Date Diagnosed Date [...] is negative we will have to re-evaluate. Current Treatment and Therapy Plans Durvalumab / GemCITabine / CISplatin - Hepatobiliary* Plan Start Date:09/18/2024 Plan Provider:Jenny Rodriguez MD PhD Linked Problems Cholangiocarcinoma (HCC)Hype rtension, unspecified type Treatment Medications Current Day (Day 1 , Cycle 12 - Planned for 06/26/2025) Next Day (Day 1, Cycle 13 - Planned for 07/24/2025) CISplatin (PLATINOL)CISplati n (PLATINOL) IVPB in 250 mLdexAMETHasone (DECADRON)durvalumab (IMFINZI)durvalumab (IMFINZI) IVPB in 100 mL solutiongemcitabine (GEMZAR)gemcitabine (GEMZAR) IVPB in 250 mL (using 38 mg/mL gemCITabine) (J9201) durvalumab (IMFINZI) 1,500 mg in sodium chloride 0.9% 100 mL IVPB durvalumab (IMFINZI) 1,500 mg in sodium chloride 0.9% 100 mL IVPB Hydration Therapy Plan* Plan Start Date:09/26/2024 Plan Provider:Jenny Rodriguez MD PhD Linked Problems DehydrationCholangiocarcinom a (HCC)Opioid withdrawal (HCC) Treatment Medications No medications scheduled. IV Maintenance Therapy Plan* Plan Start Date:04/03/2025 Plan Provider:Jenny Rodriguez MD PhD Linked Problems Cholangiocarcinoma (HCC) Treatment Medications No medications scheduled. Past Treatment and Therapy Plans Line Care Plan Name Start Date Discontinue Date Treatment Medications Discontinue Reason Plan Provider IV Maintenance Therapy Plan 09/26/2024 04/03/2025 No medications scheduled. Orders Jenny Rodriguez MD PhD Lifetime Dose Tracking * Chemical Lifetime Dose Automatic Entry Manual Entr y Fluoro Time 0.5 minutes 0.5 minutes 0 minutes Air kerma at the reference point (Ka,r) 1 mGy 1 mGy 0 mGy DLP 1,651 mGycm 1,651 mGycm 0 mGycm Resolved Problems Problem Noted Date Diagnosed Date Resolved Date Primary cancer of unknown site 08/29/2024 09/14/2024
--- OUTSIDE RECORDS SUMMARY | 2025-06-20 13:58 | XMS_ITS | Clinical Summary ---
Author Organization [facility] Address [address] [place] [address] Care Team Providers Care Poker Prop Player Name Role Phone Bruce Teresa MD Primary Care Provider [phone] Source Comments [facility] [employer],non-owned Affiliates and Associated Physician Practices is amultiple site organization consisting of ambulatory clinics and hospital sitesin [place], [place], [place] and [place]. This disclosure is being madepursuant to the Care Everywhere program and may not contain all information available regarding this patient. Last updated 18.[facility] Allergies No known active allergies Medications * Be aware that medications may not be up to date on this document. Alwaysverify current medications with the patient. fenofibrate (LOFIBRA) 160 MG tablet Take 160 mg by mouth once daily Take with largest meal of the day. Active venlafaxine (EFFEXOR) 37.5 MG tablet Take 75 mg by mouth 3 times daily with meals Active lisinopril (PRINIVIL; ZESTRIL) 10 MG tablet Take 10 mg by mouth once daily Active Family History Medical History Relation Name Comments Other - Cardiac Father [place] CVA Mother Hypertension Mother Relation Name Status Comments Father Mother Social History Tobacco Use Types Packs/Day Years Used Date Smoking Tobacco: Never Smokeless Tobacco: Never Comments No Sex and Gender Information Value Date Recorded Sex Assigned at Not on file Legal Sex Female 7:05 AM CDT Gender Identity Not on file Sexual Orientation Not on file Last Filed Vital Signs Vital Sign Reading Time Taken Comments Blood Pressure 128/82 02/15/2018 11:35 AM CDT Pulse 63 02/15/2018 11:35 AM CDT Temperature 37 C (98.6 F) 02/15/2018 11:35 AM CDT Respiratory Rate 16 02/15/2018 11:35 AM CDT Oxygen Saturation 98% 02/15/2018 11:35 AM CDT Inhaled Oxygen Concentration - - Weight 76.2 kg (168 lb) 02/15/2018 11:35 AM CDT Height 167.6 cm (5' 6) 02/15/2018 11:35 AM CDT Body Mass Index [...] LIPID TESTING 1954 MAMMOGRAM 1954 MEDICARE AWV 12 MONTHS 1954 HEPATITIS C SCREENING 09/18/1972 DTAP/TDAP/TD VACCINES (1 - Tdap) 1973 PNEUMOCOCCAL VACCINE 50+ (1 of 1 - PCV) 2004 ZOSTER VACCINE (1 of 2) 2004 SCREENING FOR DIABETES 02/15/2018 DEPRESSION SCREENING 08/15/2024 COVID-19 VACCINE (1 - 2023-2 5 season) 2025 INFLUENZA VACCINE (#1) 2025 Respiratory Syncytial Virus (RSV) Vaccine Pt: or [...] patient's age to complete this topic MENINGOCOCCAL (Group B) VACC INE SHARED DECISION-MAKING Aged Out No longer eligibl e based on patient's age to complete this topic MENINGOCOCCAL GROUPS A/C/Y/W VACCINE Aged Out No longer eligible b ased on patient's age to complete this topic Insurance MEDICARE [facility] SELF PAY NO INSURANCE Member Subscriber Plan / Payer (Ef fective for All Dates) Name:Sahara Goldstein Member ID:Not on file Relation to Subscriber:Not on file Name:SAHARA GOLDSTEIN Subscriber ID:Not on file (Home) Address: [address] [place] [address] Payer ID:Not on file Group ID:Not on file Type:Self Pay Address: [place], [place] MEDICARE [facility] MEDICARE [facility] MEDICARE [facility] Care Teams Poker Prop Player Relationship Specialty Start Date End Date Bruce Teresa MD [address] [place] [address] PCP - General Family Medicine 02/15/18
== END 2025-06-19 14:19 | disposition home or self-care (01) ==
DX: Z12.31 Encounter for screening mammogram for malignant neoplasm of breast (principal); Z78.0 Asymptomatic menopausal state; M85.89 Other specified disorders of bone density and structure, multiple sites
CPT/HCPCS: 77063; 77067; 77080